=== PATIENT | male | born 1960 | race Caucasian/White ===

== ENCOUNTER → 2018-06-17 14:36 | Outpatient (CLI) | payer MEDICAID, SELFPAY ==
--- NOTE | 2018-06-17 14:43 | XR_ITS ---
XR chest 2V HISTORY: Cough and congestion, smoker ITS.REASON: URI ORDERING PHYSICIAN: Joi Valentino PATIENT AGE: 57 years COMPARISON: 11/30/2015 FINDINGS: Unremarkable cardiovascular structures. There is hyperinflation with attenuation of the peripheral pulmonary vessels consistent with COPD. A calcified granuloma is present in the superior segment of the left lower lobe. No lobar consolidation or collapse. No acute bony findings. IMPRESSION: COPD, no change with no acute finding
== END ==
PROVIDERS: PCP Nurse Practitioner Family; Visit Provider Nurse Practitioner Family
DX: J06.9 Acute upper respiratory infection, unspecified (principal)
CPT/HCPCS: 71046

== ENCOUNTER → 2018-07-28 14:57 | Outpatient (CLI) | payer MEDICAID, SELFPAY ==
[2018-07-28 15:59] LABS: Basophils % 0.5 % (0.1-2.0); Eosinophils # 0.2 K/mm3 (0.0-0.4); Eosinophils % 2.5 % (0.1-12.0); Hematocrit 47.5 % (42.0-52.0); Hemoglobin 15.8 g/dL (14.1-18.0); Lymphocytes # 1.4 K/mm3 (0.7-4.5); Lymphocytes % 21.8 % (10-50); Mean Corpuscular HGB Conc 33.3 g/dL (31.8-35.4); Mean Corpuscular Hemoglobin 31.1 pg (27.0-31.2); Mean Corpuscular Volume 93.3 fl (80-94); Mean Platelet Volume 9.2 fl (7.4-10.4); Monocytes # 0.5 K/mm3 (0.1-1.0); Monocytes % 8.4 % (1.7-9.3); Neutrophils # 4.2 K/mm3 (1.8-7.8); Neutrophils % 66.9 % (37.0-80.0); Platelet Count 378 K/mm3 (142-424); Red Blood Count 5.09 M/mm3 (4.60-6.20); Red Cell Distribution Width 13.5 % (11.5-17.5); White Blood Count 6.2 K/mm3 (4.8-10.8)
[2018-07-28 16:26] LABS: Alanine Aminotransferase 31 U/L (12-78); Albumin Level 3.6 gm/dL (3.4-5.0); Alkaline Phosphatase 71 U/L (46-116); Anion Gap 13.7 mEq/L (5-15); Aspartate Amino Transferase 23 U/L (15-37); Bilirubin,Total 0.4 mg/dL (0.2-1.0); Blood Urea Nitrogen 12 mg/dL (7-18); Calcium 9.7 mg/dL (8.5-10.1); Carbon Dioxide 28 mmol/L (21.0-32.0); Chloride 104 mmol/L (98-107); Cholesterol 249 mg/dL (140-200); Creatinine,Serum 0.83 mg/dL (0.70-1.30); Estimated Glomerular Filt Rate 95 ml/min (>60); GFR (African American) 115 ML/MIN (>60); Globulin 3.5 gm/dl (1.3-3.2); Glucose 91 mg/dL (74-106); HDL Cholesterol 63 mg/dL (27-67); LDL Cholesterol 165 mg/dL (0-130); Potassium 4.7 mmoL/L (3.5-5.1); Sodium 141 mmol/L (136-145); T4 (Thyroxine) 7.6 ug/dl (4.7-13.3); Thyroid Stimulating Hormone 2.78 uIU/ml (0.358-3.740); Total Protein,Serum 7.1 gm/dL (6.4-8.2); Triglycerides 106 mg/dL (30-200); VLDL Cholesterol 21 mg/dL (0-40)
[2018-07-30 14:27] LABS: PSA, Free 0.12 ng/mL; Prostate Specific Ag 0.5 ng/mL (0.0-4.0); Vitamin D 25 Hydroxy 15.3 ng/mL (30.0-100.0)
== END ==
LOC: LAB 14:57 → LAB.DROPOF 15:01
PROVIDERS: Visit Provider Physician Assistant
DX: R53.83 Other fatigue (principal); J44.9 Chronic obstructive pulmonary disease, unspecified; G89.4 Chronic pain syndrome; R07.81 Pleurodynia; R13.10 Dysphagia, unspecified; R12 Heartburn; F41.9 Anxiety disorder, unspecified; F32.9 Major depressive disorder, single episode, unspecified
CPT/HCPCS: 80053; 80061; 82652; 84153; 84154; 84436; 84443; 85025

== ENCOUNTER → 2018-08-01 14:17 | Outpatient (CLI) | payer MEDICAID, SELFPAY ==
--- NOTE | 2018-08-01 14:21 | XR_ITS ---
XR pelvis 1-2V HISTORY: ITS.REASON: left hip pain ORDERING PHYSICIAN: RENETTA Pedro PATIENT AGE: 57 years Comparison: None FINDINGS: No fracture or dislocation is evident. No significant degenerative change. No lytic or blastic change. The SI joints have an unremarkable appearance. Unremarkable soft tissues. There is a small calcific density inferior to the symphysis pubis and could represent a phlebolith. Phleboliths are present in the pelvis. IMPRESSION: Negative pelvis.
--- NOTE | 2018-08-01 14:21 | XR_ITS ---
XR knee RT 4V HISTORY: ITS.REASON: Bilateral knee pain ORDERING PHYSICIAN: RENETTA Pedro PATIENT AGE: 57 years COMPARISON: None FINDINGS: No fracture or dislocation. No lytic or blastic change. Normal mineralization. No significant arthritic changes evident. No other significant findings IMPRESSION: Negative Knee
--- NOTE | 2018-08-01 14:21 | XR_ITS ---
XR chest 2V HISTORY: Shortness of air, smoker ITS.REASON: CXR ORDERING PHYSICIAN: RENETTA Pedro PATIENT AGE: 57 years COMPARISON: 07/12/2018 FINDINGS: The cardiomediastinal silhouette and pulmonary vascularity are within normal limits. Mild hyperinflation. There is evidence of old granulomatous disease. No lobar consolidation or collapse. No suspicious nodules. No acute bony anomalies. IMPRESSION: No change with no acute finding
--- NOTE | 2018-08-01 14:21 | XR_ITS ---
XR ribs LT 2V HISTORY: Fall with injury and pain, left-sided rib pain ITS.REASON: Left rib pain ORDERING PHYSICIAN: RENETTA Pedro PATIENT AGE: 57 years Comparison: None FINDINGS: There are old fractures of the left 10 and 11th ribs. No acute rib fractures evident. No evidence of pneumothorax or other significant anomalies. Patient has 13 sets of ribs as a normal variant IMPRESSION: Old left 10th and 11th rib fractures. No acute finding.
--- NOTE | 2018-08-01 14:21 | XR_ITS ---
XR knee LT 4V HISTORY: ITS.REASON: Bilateral knee pain ORDERING PHYSICIAN: RENETTA Pedro PATIENT AGE: 57 years COMPARISON: None FINDINGS: No fracture or dislocation. No lytic or blastic change. Normal mineralization. No significant arthritic changes evident. No other significant findings IMPRESSION: Negative Knee
== END ==
PROVIDERS: PCP Emergency Medicine; Visit Provider Physician Assistant
DX: M25.561 Pain in right knee (principal); M25.562 Pain in left knee; R07.81 Pleurodynia
CPT/HCPCS: 71046; 71100; 72170; 73564

== ENCOUNTER → 2018-08-07 11:14 | Outpatient (CLI) | payer MEDICAID, SELFPAY | PROVIDERS: PCP Physician Assistant; Visit Provider Physician Assistant | DX: R06.00 Dyspnea, unspecified (principal) | CPT/HCPCS: 94060; 94640 ==

== ENCOUNTER → 2018-10-30 13:19 | Outpatient (CLI) | payer MEDICAID, SELFPAY ==
[2018-10-30 13:34] LABS: Basophils % 0.5 % (0.1-2.0); Eosinophils # 0.1 K/mm3 (0.0-0.4); Eosinophils % 1.3 % (0.1-12.0); Hematocrit 44.8 % (42.0-52.0); Hemoglobin 14.1 g/dL (14.1-18.0); Lymphocytes # 1.4 K/mm3 (0.7-4.5); Lymphocytes % 19.7 % (10-50); Mean Corpuscular HGB Conc 31.6 g/dL (31.8-35.4); Mean Corpuscular Hemoglobin 28.6 pg (27.0-31.2); Mean Corpuscular Volume 90.7 fl (80-94); Mean Platelet Volume 8.4 fl (7.4-10.4); Monocytes # 0.6 K/mm3 (0.1-1.0); Monocytes % 8.1 % (1.7-9.3); Neutrophils # 4.9 K/mm3 (1.8-7.8); Neutrophils % 70.5 % (37.0-80.0); Platelet Count 325 K/mm3 (142-424); Red Blood Count 4.93 M/mm3 (4.60-6.20); Red Cell Distribution Width 12.8 % (11.5-17.5)
[2018-10-30 16:15] LABS: Alanine Aminotransferase 28 U/L (12-78); Albumin Level 3.3 gm/dL (3.4-5.0); Alkaline Phosphatase 87 U/L (46-116); Anion Gap 12.4 mEq/L (5-15); Aspartate Amino Transferase 25 U/L (15-37); Bilirubin,Total 0.3 mg/dL (0.2-1.0); Blood Urea Nitrogen 12 mg/dL (7-18); Calcium 9.2 mg/dL (8.5-10.1); Carbon Dioxide 28 mmol/L (21.0-32.0); Chloride 106 mmol/L (98-107); Chol/HDL Ratio 2.9 (1-3.5); Cholesterol 200 mg/dL (140-200); Creatinine,Serum 0.94 mg/dL (0.70-1.30); Estimated Glomerular Filt Rate 82 ml/min (>60); GFR (African American) 100 ML/MIN (>60); Globulin 3.2 gm/dl (1.3-3.2); Glucose 91 mg/dL (74-106); HDL Cholesterol 68 mg/dL (27-67); LDL Cholesterol 114 mg/dL (0-130); Potassium 4.4 mmoL/L (3.5-5.1); Sodium 142 mmol/L (136-145); Thyroid Stimulating Hormone 1.81 uIU/ml (0.358-3.740); Total Protein,Serum 6.5 gm/dL (6.4-8.2); Triglycerides 88 mg/dL (30-200); VLDL Cholesterol 18 mg/dL (0-40)
[2018-10-31 17:15] LABS: Vitamin D 25 Hydroxy 56.1 ng/mL (30.0-100.0)
== END ==
PROVIDERS: Visit Provider Physician Assistant
DX: R42 Dizziness and giddiness (principal); E55.9 Vitamin D deficiency, unspecified
CPT/HCPCS: 80053; 80061; 82652; 84436; 84443; 85025

== ENCOUNTER → 2018-12-15 10:33 | Outpatient (CLI) | payer MEDICAID, SELFPAY ==
--- NOTE | 2018-12-15 10:40 | XR_ITS ---
PROCEDURE: XR HAND RT MIN 3V CLINICAL INDICATION: pain COMPARISON: No exams were available for comparison FINDINGS: There is an oblique minimally displaced fracture involving the mid to proximal shaft of the 4th metacarpal. There is 2 mm dorsal and ulnar displacement of the distal fracture fragment. There is good alignment. There is some minor cystic change involving the distal aspect of the 1st metacarpal Other findings:None. IMPRESSION: Oblique minimally displaced fracture of the 4th metacarpal Dictated by: Kalen Mayo MD 12/15/2018 11:25 Signed by: <Electronically signed by Kalen Mayo MD in [place]> 12/15/2018 11:25
[2018-12-15 12:27] LABS: Erythrocyte Sedimentation Rate 15 mm/hr (0-20)
[2018-12-15 12:54] LABS: C-Reactive Protein 0.6 mg/dL (0.0-0.9)
== END ==
PROVIDERS: PCP Emergency Medicine; Visit Provider Nurse Practitioner Family
DX: M79.641 Pain in right hand (principal); M79.89 Other specified soft tissue disorders
CPT/HCPCS: 36415; 73130; 85651; 86140

== ENCOUNTER → 2018-12-24 13:37 | Outpatient (CLI) | payer MEDICAID, SELFPAY ==
--- NOTE | 2018-12-24 13:43 | XR_ITS ---
PROCEDURE: XR HAND RT MIN 3V CLINICAL INDICATION: follow up right 4th digit fracture Fracture, pain, COMPARISON: XR HAND RT MIN 3V from 12/15/2018 FINDINGS: Oblique nondisplaced fractures present vomiting the proximal and mid aspect of the 4th metacarpal. The fracture line may be somewhat less distinct. There remains good alignment. IMPRESSION: Good alignment nondisplaced 4th metacarpal fracture Dictated by: Kalen Mayo MD 12/24/2018 14:42 <Electronically signed by Kalen Mayo MD in [place]> 12/24/2018 14:42
== END ==
PROVIDERS: PCP Emergency Medicine; Visit Provider Orthopaedic Surgery
DX: S62.304A Unspecified fracture of fourth metacarpal bone, right hand, initial encounter for closed fracture (principal)
CPT/HCPCS: 73130

== ENCOUNTER 2019-01-12 10:00 | Outpatient (RCR) | payer MEDICAID, SELFPAY ==
--- NOTE | 2018-12-26 13:42 | HMH.OTOPEV ---
OT Inpatient Evaluation Rehab OT Outpatient Eval Start: 12/26/18 13:25 Freq: Status: Active Protocol: Document 12/26/18 13:26 RMARSHALL (Rec: 12/26/18 13:40 [facility] [id number][facility] Electronically Signed By Holly Breaux OT 12/26/18 13:26 Outpatient Therapy Subjective History Subjective History Pt is a 58 year old male who reports to therapy for initial evaluation to right hand. Pt explains on 11/20/18 he woke up with pain in the back of his hand around his ring and middle finger. Pt noticed swelling and was unable to actively bend fingers; swelling was present. Pt does not recall a specific injury causing pain or swelling. Pt went to doctor where he was diagnosed with fx of 4th metacarpal. Pt does demonstrate with decreased AROM at both ring and middle finger. 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 Pt will continue to be seen in order to address all deficits. 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
== END 2019-01-12 10:05 | disposition home or self-care (01) ==
LOC: OT 10:00
PROVIDERS: Visit Provider Orthopaedic Surgery
DX: S62.604A Fracture of unspecified phalanx of right ring finger, initial encounter for closed fracture (principal)
CPT/HCPCS: 97035; 97110; 97140; 97166

== ENCOUNTER → 2019-01-14 12:52 | Outpatient (CLI) | payer MEDICAID, SELFPAY ==
--- NOTE | 2019-01-14 12:54 | XR_ITS ---
PROCEDURE: XR HAND RT MIN 3V CLINICAL INDICATION: follow up right 4th mc fx Follow-up fracture COMPARISON: XR HAND RT MIN 3V from 12/15/2018 XR HAND RT MIN 3V from 12/24/2018 FINDINGS: Nondisplaced oblique fracture once again noted involving the proximal mid aspect of the 4th metacarpal. Fracture line is still visible. There may be some callus formation developing. No other nominal is evident. The joint spaces are well-preserved. No significant degenerative/arthritic changes. No erosive changes evident. Other findings:None. IMPRESSION: Healing 4th metacarpal fracture with good alignment Dictated by: Kalen Mayo MD 01/14/2019 14:23 Electronically signed by Kalen Mayo MD in [place] 01/14/2019 14:23
== END ==
PROVIDERS: PCP Emergency Medicine; Visit Provider Orthopaedic Surgery
DX: S62.304A Unspecified fracture of fourth metacarpal bone, right hand, initial encounter for closed fracture (principal)
CPT/HCPCS: 73130

== ENCOUNTER 2019-01-19 14:30 | Outpatient (RCR) | payer MEDICAID, SELFPAY | END 2019-01-19 15:00 | disposition home or self-care (01) | LOC: OT 14:30 | PROVIDERS: Visit Provider Orthopaedic Surgery | DX: G56.01 Carpal tunnel syndrome, right upper limb (principal) | CPT/HCPCS: 97763 ==

== ENCOUNTER → 2019-03-09 10:22 | Outpatient (POV) | payer OTHER, SELFPAY | PROVIDERS: Visit Provider Specialist | DX: M79.642 Pain in left hand (principal); M79.641 Pain in right hand; R20.2 Paresthesia of skin | CPT/HCPCS: 95886; 95910 ==

== ENCOUNTER → 2019-03-25 11:56 | Outpatient (CLI) | payer OTHER, SELFPAY ==
--- NOTE | 2019-03-25 12:13 | ECG_ITS ---
APPROVED REPORT Exam: Resting ECG HR:81 bpm ECG Measurements Heart Rate 81 AXES WV 120 P 43 QRSd 80 QRS 75 QT 360 T 66 QTc 418 <Conclusion> Normal sinus rhythm Normal ECG Electronically signed by : Darvin Dempsey, 03/27/2019 16:39:40
--- NOTE | 2019-03-25 12:13 | XR_ITS ---
PROCEDURE: XR CHEST 2V CLINICAL HISTORY: CURRENT TOBACCO USE, PRE OP COMPARISON: [facility] CT CHEST W/O CONTRAST from 11/01/2016 CXR2V XR chest 2V from 06/17/2018 CXR2V XR chest 2V from 07/12/2018 CXR2V XR chest 2V from 08/01/2018 FINDINGS: The cardiomediastinal silhouette and pulmonary vascularity are within normal limits. COPD changes. Old granulomatous disease. Clear lungs. No acute bony finding. IMPRESSION: COPD. No change with no acute finding Dictated by: Kalen Mayo MD 03/25/2019 21:27 Electronically signed by Kalen Mayo MD in [place] 03/25/2019 21:27
[2019-03-25 12:21] LABS: Basophils % 0.4 % (0.1-2.0); Eosinophils # 0.1 K/mm3 (0.0-0.4); Eosinophils % 1.5 % (0.1-12.0); Hematocrit 46.7 % (42.0-52.0); Hemoglobin 15.1 g/dL (14.1-18.0); Lymphocytes # 1.6 K/mm3 (0.7-4.5); Lymphocytes % 22.3 % (10-50); Mean Corpuscular HGB Conc 32.3 g/dL (31.8-35.4); Mean Corpuscular Volume 92.8 fl (80-94); Mean Platelet Volume 7.3 fl (7.4-10.4); Monocytes # 0.5 K/mm3 (0.1-1.0); Monocytes % 7.3 % (1.7-9.3); Neutrophils % 68.5 % (37.0-80.0); Platelet Count 339 K/mm3 (142-424); Red Blood Count 5.04 M/mm3 (4.60-6.20); White Blood Count 7.3 K/mm3 (4.8-10.8)
[2019-03-25 12:47] LABS: Anion Gap 11.2 mEq/L (5-15); Blood Urea Nitrogen 12 mg/dL (7-18); Calcium 8.8 mg/dL (8.5-10.1); Carbon Dioxide 31 mmol/L (21.0-32.0); Chloride 104 mmol/L (98-107); Creatinine,Serum 1.05 mg/dL (0.70-1.30); Estimated Glomerular Filt Rate 72 ml/min (>60); GFR (African American) 87 ML/MIN (>60); Glucose 90 mg/dL (74-106); Potassium 4.2 mmoL/L (3.5-5.1); Sodium 142 mmol/L (136-145)
== END ==
PROVIDERS: Visit Provider Orthopaedic Surgery
DX: Z01.818 Encounter for other preprocedural examination (principal); G56.01 Carpal tunnel syndrome, right upper limb
CPT/HCPCS: 36415; 71046; 80048; 85025; 93005

== ENCOUNTER → 2019-09-08 15:01 | Outpatient (CLI) | payer OTHER, SELFPAY ==
[2019-09-08 16:08] LABS: Basophils # 0.1 K/mm3 (0-0.2); Basophils % 0.9 % (0.1-2.0); Eosinophils # 0.1 K/mm3 (0.0-0.4); Eosinophils % 1.7 % (0.1-12.0); Hematocrit 46.2 % (42.0-52.0); Hemoglobin 14.4 g/dL (14.1-18.0); Lymphocytes # 1.1 K/mm3 (0.7-4.5); Lymphocytes % 18.4 % (10-50); Mean Corpuscular HGB Conc 31.1 g/dL (31.8-35.4); Mean Corpuscular Hemoglobin 28.6 pg (27.0-31.2); Mean Corpuscular Volume 91.9 fl (80-94); Mean Platelet Volume 9.5 fl (7.4-10.4); Monocytes # 0.4 K/mm3 (0.1-1.0); Monocytes % 7.4 % (1.7-9.3); Neutrophils # 4.3 K/mm3 (1.8-7.8); Neutrophils % 71.7 % (37.0-80.0); Platelet Count 430 K/mm3 (142-424); Red Blood Count 5.03 M/mm3 (4.60-6.20); Red Cell Distribution Width 13.1 % (11.5-17.5)
[2019-09-08 17:03] LABS: Alanine Aminotransferase 15 U/L (12-78); Albumin Level 4.1 g/dl (3.5-5.0); Albumin/Globulin Ratio 1.5 (1.1-1.8); Alkaline Phosphatase 87 U/L (38-126); Anion Gap 8.6 mEq/L (5-15); Aspartate Amino Transferase 31 U/L (17-59); Blood Urea Nitrogen 8 mg/dl (9-20); Calcium 9.8 mg/dl (8.4-10.2); Carbon Dioxide 26 mmol/L (22.0-30.0); Chloride 104 mmol/L (98-107); Chol/HDL Ratio 2.4 (1-3.5); Cholesterol 171 mg/dl (140-200); Estimated Glomerular Filt Rate 99 ml/min (>60); GFR (African American) 120 ML/MIN (>60); Globulin 2.8 g/dL (1.3-3.2); Glucose 100 mg/dl (74-100); HDL Cholesterol 71 mg/dl (40-60); Potassium 4.6 mmoL/L (3.5-5.1); Sodium 134 mmol/L (136-145); Total Protein,Serum 6.9 g/dl (6.3-8.2); Triglycerides 94 mg/dl (30-150); VLDL Cholesterol 19 mg/dL (0-40)
[2019-09-08 17:14] LABS: Direct LDL Cholesterol 105.55 mg/dL (100-129)
[2019-09-08 17:24] LABS: T4 (Thyroxine) 7.2 ug/dl (5.53-11.0)
[2019-09-08 17:27] LABS: Bilirubin,Total < 0.1 mg/dl (0.2-1.3)
[2019-09-08 17:37] LABS: Thyroid Stimulating Hormone 2.07 uIU/mL (0.465-4.68)
[2019-09-10 11:36] LABS: PSA, Free 0.11 ng/mL; Prostate Specific Ag 0.6 ng/mL (0.0-4.0); Vitamin D 25 Hydroxy 46.7 ng/mL (30.0-100.0)
== END ==
PROVIDERS: Visit Provider Nurse Practitioner Family
DX: Z01.89 Encounter for other specified special examinations (principal); G89.4 Chronic pain syndrome; E78.5 Hyperlipidemia, unspecified; J44.9 Chronic obstructive pulmonary disease, unspecified; Z79.899 Other long term (current) drug therapy; Z72.0 Tobacco use
CPT/HCPCS: 80053; 80061; 82652; 84153; 84154; 84436; 84443; 85025

== ENCOUNTER → 2020-04-14 13:51 | Outpatient (CLI) | payer OTHER, SELFPAY ==
--- NOTE | 2020-04-14 14:00 | XR_ITS ---
PROCEDURE: XR KNEE LT 3V CLINICAL INDICATION: knee pain COMPARISON: CR [id number] XR knee RT 4V from 08/01/2018 CR [id number] XR knee LT 4V from 08/01/2018 FINDINGS: No fracture or dislocation. No lytic or blastic change. There is normal mineralization. The joint spaces are well-preserved. No significant degenerative/arthritic changes. No erosive changes evident. Other findings:There may be a small suprapatellar effusion. IMPRESSION: Possible suprapatellar effusion otherwise negative Dictated by: Kalen Mayo MD 04/14/2020 14:52 Kalen Mayo MD in [place] 04/14/2020 14:52
--- NOTE | 2020-04-14 14:00 | XR_ITS ---
PROCEDURE: XR LUMBAR SPINE 6V W BENDING CLINICAL INDICATION: back pain Low back pain COMPARISON: No exams were available for comparison FINDINGS: There is normal alignment. There are mild degenerative changes with small anterior osteophytes the from L1-L5. There is very slight decrease in height anteriorly L3 and L4 which could be chronic. No abnormal subluxation is evident in flexion or extension. There is generalized vascular calcification. Other findings:None. IMPRESSION: Degenerative changes with minimal wedging of L3 and L4 which may be chronic. MRI may confirm if clinically desired. No abnormal subluxation inflection or extension. Dictated by: Kalen Mayo MD 04/15/2020 07:08 Kalen Mayo MD in [place] 04/15/2020 07:08
== END ==
PROVIDERS: PCP Nurse Practitioner Family; Visit Provider Nurse Practitioner Family
DX: M25.50 Pain in unspecified joint (principal); M54.5 Low back pain; M25.562 Pain in left knee
CPT/HCPCS: 72114; 73562

== ENCOUNTER → 2020-05-03 11:39 | Outpatient (CLI) | payer OTHER, SELFPAY ==
[2020-05-03 12:30] VITALS: PULSE 87; PULSE 90
--- NOTE | 2020-05-03 12:59 | MR_ITS ---
PROCEDURE: MR LUMBAR SPINE WO CON CLINICAL INDICATION: abnormal x ray LOW BACK PAIN, LT HIP PAIN, TIGHTNESS IN BACK, ABNORMAL XRAY COMPARISON: CR XR LUMBAR SPINE 6V W BENDING from 04/14/2020 TECHNIQUE: Standard multiplanar multiecho sequences are performed without contrast. 3-D MIP and myelographic images are also rendered and reviewed FINDINGS: There is normal alignment. Spinal cord ends at the L1 level. T12-L1: Unremarkable. L1-L2: Unremarkable. L2-L3: Unremarkable. L3-L4: Small anterior osteophytes are present at L3 and L4 with slight decrease in height anteriorly at L3 and L4. No evidence of acute fracture. L4-5: Unremarkable. L5-S1: Minimal bulging disc. Mild right foraminal narrowing. There is increased T2 signal along the superior endplate of S1 and the inferior endplate of L5 on the right consistent with type 1 discogenic changes No extruded herniated disc or canal stenosis. IMPRESSION: 1. No extruded herniated disc or canal stenosis. 2. No evidence of acute compression fracture. 3. Mild lumbar spondylosis. Please see above for detailed description at each level. 4. Type 1 discogenic changes on the right at L5-S1 Dictated by: Kalen Mayo MD 05/04/2020 14:34 Kalen Mayo MD in [place] 05/04/2020 14:34
== END ==
PROVIDERS: PCP Nurse Practitioner Family; Visit Provider Nurse Practitioner Family
DX: G89.29 Other chronic pain (principal); M54.9 Dorsalgia, unspecified; J44.9 Chronic obstructive pulmonary disease, unspecified
CPT/HCPCS: 72148; 76376; 94060; 94640

== ENCOUNTER → 2020-05-04 12:40 | Outpatient (CLI) | payer OTHER, SELFPAY ==
--- NOTE | 2020-05-04 12:42 | XR_ITS ---
PROCEDURE: XR KNEE RT 4V CLINICAL INDICATION: right knee pain COMPARISON: CR [id number] XR knee RT 4V from 08/01/2018 CR [id number] XR knee LT 4V from 08/01/2018 CR XR KNEE LT 3V from 04/14/2020 FINDINGS: No fracture or dislocation. No lytic or blastic change. There is normal mineralization. The joint spaces are well-preserved. No significant degenerative/arthritic changes. No erosive changes evident. Other findings:None. IMPRESSION: Negative right knee Dictated by: Kalen Mayo MD 05/04/2020 16:44 Kalen Mayo MD in [place] 05/04/2020 16:44
--- NOTE | 2020-05-04 12:42 | XR_ITS ---
PROCEDURE: XR KNEE LT 4V CLINICAL INDICATION: left knee pain COMPARISON: CR [id number] XR knee RT 4V from 08/01/2018 CR [id number] XR knee LT 4V from 08/01/2018 CR XR KNEE LT 3V from 04/14/2020 FINDINGS: No fracture or dislocation. No lytic or blastic change. There is normal mineralization. The joint spaces are well-preserved. No significant degenerative/arthritic changes. No erosive changes evident. Other findings:None. IMPRESSION: Negative left knee Dictated by: Kalen Mayo MD 05/04/2020 16:44 Kalen Mayo MD in [place] 05/04/2020 16:44
--- NOTE | 2020-05-04 13:20 | XR_ITS ---
PROCEDURE: XR HIP LT 2-3V W/PELVIS CLINICAL INDICATION: left hip pain COMPARISON: No exams were available for comparison FINDINGS: No fracture or dislocation is evident. No significant degenerative change. No lytic or blastic change. Unremarkable soft tissues. There is some minimal calcification noted in the prostate region IMPRESSION: Negative left hip Dictated by: Kalen Mayo MD 05/04/2020 16:34 Kalen Mayo MD in [place] 05/04/2020 16:34
--- NOTE | 2020-05-04 13:20 | XR_ITS ---
PROCEDURE: XR HIP RT 2-3V W/PELVIS CLINICAL INDICATION: right hip pain COMPARISON: CR [id number] XR pelvis 1-2V from 08/01/2018 CR XR HIP LT 2-3V W/PELVIS from 05/04/2020 FINDINGS: No fracture or dislocation is evident. No significant degenerative change. No lytic or blastic change. Unremarkable soft tissues. IMPRESSION: Negative right hip Dictated by: Kalen Mayo MD 05/04/2020 16:15 Kalen Mayo MD in [place] 05/04/2020 16:15
== END ==
PROVIDERS: PCP Nurse Practitioner Family; Visit Provider Orthopaedic Surgery
DX: M25.562 Pain in left knee (principal); M25.561 Pain in right knee; M25.552 Pain in left hip; M25.551 Pain in right hip
CPT/HCPCS: 73502; 73564

== ENCOUNTER → 2020-07-22 14:51 | Outpatient (CLI) | payer OTHER, SELFPAY ==
--- NOTE | 2020-07-22 14:51 | CT_ITS ---
PROCEDURE: CT LUNG SCREENING CLINICAL INDICATION: LDCT COMPARISON: CT LDCTLCAS LDCT FOR LUNG CA SCREEN from 12/13/[address] [facility] [address] CHEST W/O CONTRAST from 11/01/2016 TECHNIQUE: The exam was performed on a GE Light Speed [address] scanner using 2.90 mGy CTDI. A low dose helical CT CHEST was performed on a multi-detector scanner. All CT scans at the facility use one or more dose reduction, viz: automated exposure control, ma/kV adjustment per patient size (including targeted exams where dose is matched to indication, i.e. head), or iterative reconstruction technique. The LDCT was performed in a facility that meets the criteria for the screening program. Data regarding this exam was submitted to ACR which is an approved registry. The order for this exam indicates that it came as a result of a lung cancer screening counseling shard decision-making visit that included all the elements required of such a visit including smoking cessation. The radiologist interpreting this exam meets the CMS criteria for the LDCT lung cancer screening program. The exam is reported using the Lung-RADS classification scale and reported to the ACR registry. NOTE: This study was performed for the specific purposes of lung cancer screening and is not an alternative to diagnostic chest CT. RADIATION DOSE: CTDI vol(CT dose Index-volume) = 2.90mG DLP (Dose Length Product) = mGcm FINDINGS: Centrilobular emphysematous changes are noted bilaterally. Minor paraseptal emphysematous changes. A vagal pleural scarring is noted bilaterally. Few calcified granulomas. There are tiny nodules noted in the lungs bilaterally measuring less than 3 millimeters, demonstrate no significant interval change. No suspicious lung nodules are noted. The central tracheobronchial tree is patent. The heart size is normal. No pericardial effusions. Atherosclerotic vascular calcification of the thoracic aorta and the coronary arteries are noted. Multiple subcentimeter calcified lymph nodes in the mediastinum, not significant by size criteria. Visualized upper abdominal solid organs are unremarkable within the limitations of unenhanced study. The visualized thyroid gland is unremarkable. IMPRESSION: Lung-RADS Category 2 Benign Appearance or Behavior Follow-up: Follow-up lung screening in 18-24 months. Dictated by: Carissa Andersen 07/22/2020 17:21 Carissa Andersen in [place] 07/22/2020 17:21
== END ==
PROVIDERS: PCP Nurse Practitioner Family; Visit Provider Internal Medicine Pulmonary Disease
DX: Z87.891 Personal history of nicotine dependence (principal); Z12.2 Encounter for screening for malignant neoplasm of respiratory organs
CPT/HCPCS: 71271

== ENCOUNTER → 2020-08-25 13:43 | Outpatient (CLI) | payer OTHER, SELFPAY ==
[2020-08-25 14:42] LABS: Barbiturates Screen,Urine Negative ng/ml (<200)
[2020-08-25 14:43] LABS: Amphetamine/Metha Screen,Urine Negative ng/ml (<1000); Benzodiazepines Screen,Urine Positive ng/ml (<200)
[2020-08-25 14:44] LABS: Cocaine Screen,Urine Negative ng/ml (<300)
[2020-08-25 14:45] LABS: Cannabinoid Screen,Urine Negative ng/ml (<50); Methadone Screen,Urine Negative ng/ml (<300)
[2020-08-25 14:46] LABS: Opiate Screen,Urine Negative ng/ml (<300)
[2020-08-25 14:47] LABS: Phencyclidine Screen,Urine Negative ng/ml (<25)
[2020-08-25 17:34] LABS: Alanine Aminotransferase 44 U/L (12-78); Albumin/Globulin Ratio 1.5 (1.1-1.8); Alkaline Phosphatase 111 U/L (38-126); Anion Gap 9.5 mEq/L (5-15); Aspartate Amino Transferase 65 U/L (17-59); Bilirubin,Total 0.4 mg/dl (0.2-1.3); Blood Urea Nitrogen 4 mg/dl (9-20); Calcium 9.4 mg/dl (8.4-10.2); Carbon Dioxide 28 mmol/L (22.0-30.0); Chloride 106 mmol/L (98-107); Chol/HDL Ratio 2.3 (1-3.5); Cholesterol 191 mg/dl (140-200); Estimated Glomerular Filt Rate 99 ml/min (>60); GFR (African American) 119 ML/MIN (>60); Globulin 2.7 g/dL (1.3-3.2); Glucose 70 mg/dl (74-100); HDL Cholesterol 83 mg/dl (40-60); Potassium 4.5 mmoL/L (3.5-5.1); Sodium 139 mmol/L (136-145); Total Protein,Serum 6.7 g/dl (6.3-8.2); Triglycerides 120 mg/dl (30-150); VLDL Cholesterol 24 mg/dL (0-40)
[2020-08-25 17:36] LABS: Basophils % 0.6 % (0.1-2.0); Eosinophils # 0.1 K/mm3 (0.0-0.4); Eosinophils % 1.7 % (0.1-12.0); Hemoglobin 15.1 g/dL (14.1-18.0); Lymphocytes # 1.5 K/mm3 (0.7-4.5); Lymphocytes % 21.3 % (10-50); Mean Corpuscular HGB Conc 31.5 g/dL (31.8-35.4); Mean Corpuscular Hemoglobin 29.9 pg (27.0-31.2); Mean Corpuscular Volume 94.8 fl (80-94); Mean Platelet Volume 10.3 fl (7.4-10.4); Monocytes # 0.6 K/mm3 (0.1-1.0); Monocytes % 7.7 % (1.7-9.3); Neutrophils # 4.9 K/mm3 (1.8-7.8); Neutrophils % 68.7 % (37.0-80.0); Platelet Count 316 K/mm3 (142-424); Red Blood Count 5.06 M/mm3 (4.60-6.20); Red Cell Distribution Width 14.3 % (11.5-17.5); White Blood Count 7.2 K/mm3 (4.8-10.8)
[2020-08-25 17:47] LABS: Direct LDL Cholesterol 79.51 mg/dL (100-129)
[2020-08-25 17:51] LABS: 25-OH Vitamin D, Total 59.4 ng/mL (30-100); T4 (Thyroxine) 6.3 ug/dl (5.53-11.0)
[2020-08-25 18:05] LABS: Thyroid Stimulating Hormone 2.53 uIU/mL (0.465-4.68)
[2020-08-27 11:33] LABS: PSA, Free 0.23 ng/mL; Prostate Specific Ag 0.9 ng/mL (0.0-4.0)
== END ==
PROVIDERS: Visit Provider Nurse Practitioner Family
DX: J44.9 Chronic obstructive pulmonary disease, unspecified (principal); E78.5 Hyperlipidemia, unspecified; E55.9 Vitamin D deficiency, unspecified; M25.50 Pain in unspecified joint; Z79.899 Other long term (current) drug therapy; Z72.0 Tobacco use
CPT/HCPCS: 80053; 80061; 80305; 82306; 84153; 84154; 84436; 84443; 85025

== ENCOUNTER → 2020-12-15 12:38 | Outpatient (POV) | payer OTHER, SELFPAY ==
[2020-12-15 13:16] VITALS: BP 134/78; PULSE 109; RESP 108; O2SAT 96; BMI 19.2
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
== END ==
PROVIDERS: PCP Nurse Practitioner Family; Visit Provider Clinical Nurse Specialist Family Health
DX: M47.896 Other spondylosis, lumbar region (principal); M54.16 Radiculopathy, lumbar region
CPT/HCPCS: 99202; G0463

== ENCOUNTER → 2021-01-17 13:39 | Outpatient (POV) | payer OTHER, SELFPAY ==
[2021-01-17 13:47] VITALS: BP 100/80; PULSE 101; RESP 18; O2SAT 96; BMI 18.4
--- NOTE | 2021-01-17 13:58 | HMH.PAINSOAP ---
[facility] Pain Management SOAP Note Subjective:: Patient is a 60-year-old white male who presents today for follow-up. He has been treated in our clinic for chronic low back pain with radiation into lower extremities. He is also complaining today of bilateral knee pain. He rates his pain a 6 out of 10. He is managed in the clinic with gabapentin 300 mg 1 tablet p.o. 4 times daily. Patient and I did discuss injective therapy at his last visit, however, he did defer at that time. The patient's pain is worsening. He is getting relief with his gabapentin, however, he says due to taking it 4 times daily, he has difficulty managing to take the full medication throughout the day. As result, his pain does increase. Patient is having difficulty standing and walking due to bilateral knee pain at this time. He has not had injections in the past. He does continue with home stretching. He has tried oral medications in the past with no significant relief. Review of Systems General: No recent weight changes, no fever, no sleep disturbances Respiratory: No cough, no shortness of air, no recurring pulmonary infections Cardiovascular/peripheral vascular: No chest pain, no palpitations, no edema, no shortness of breath Gastrointestinal: No new onset incontinence, normal bowel movements reported Genitourinary: No new onset incontinence Musculoskeletal: Low back pain with bilateral knee pain Psychiatric: [Normal mood/affect] Neurological: [Denies weakness in extremities], [denies balance issues] Objective:: Physical exam General: Alert and oriented x3, no acute distress, pleasant and cooperative, [on room air] Lungs: Respirations even and unlabored, symmetrical chest expansion Eyes: PERRL Musculoskeletal: Flexion and extension of lumbar [spine] somewhat guarded secondary to pain, strength in upper and lower extremities [5/5], [antalgic gait noted] Neurological: Speech clear, [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 He is having significant pain with standing or walking. We will change the patient's gabapentin to 600 mg 1 tablet p.o. 3 times daily. We will see if the medication is working for him at his next visit. After the patient's intra-articular knee injections, he may be a candidate for lumbar epidural steroid injection. He would like to try lesser invasive injective therapy before proceeding with an epidural steroid injection. Possible side effects of corticosteroids have been discussed with the patient. Risks and benefits of the procedure have been explained to the patient. Patient would like to proceed with the procedure. Patient has been instructed to contact the clinic with any concerns before the next appointment. Dr. Be has reviewed this note and agrees with this plan of care. This note was dictated using voice recognition software and make contain errors or omissions. [facility] History I have reviewed the patient's past medical history: Yes Medical History: Reports:: Asthma, Chronic Obstructive Pulmonary Disease (COPD), Gastroesophageal Reflux Disease(GERD), Hyperlipidemia Denies:: Cancer, Diabetes Mellitus Type 1, Diabetes Mellitus Type 2, Internal Pacemaker, Lung Disease, MRSA, Seizures *Have you ever received a pneumonia vaccine?: No *Have you received a flu vaccine this season?: No Other Medical History: Denies: Blood Transfusion Reaction Laterality Cases: Left: Total Hip Replacement, Right: Carpal Tunnel Release Other Surgeries: Yes: Colonoscopy, EGD, Other. No: Pacemaker Amputation: No Fractures: No - *Social History Smoking Status: Current every day smoker Tobacco Type: cigarettes # Packs/Day (cigarettes): 1 Alcohol Intake: current Alcohol Intake Frequency:: a few times a week Substance Use Type: former substance user *Occu
== END ==
PROVIDERS: PCP Emergency Medicine; Visit Provider Clinical Nurse Specialist Family Health
DX: M25.561 Pain in right knee (principal); M25.562 Pain in left knee; M51.16 Intervertebral disc disorders with radiculopathy, lumbar region
CPT/HCPCS: 99212; G0463

== ENCOUNTER 2021-02-03 13:58 | Day surgery (SDC) | payer OTHER, SELFPAY ==
[2021-02-03 14:10] VITALS: BP 138/72; PULSE 91; RESP 18; TEMP 36.5; O2SAT 97; BMI 19.2
[2021-02-03 14:15] VITALS: BP 113/52; PULSE 92; RESP 18; O2SAT 99
[2021-02-03 14:16] VITALS: BP 113/52; PULSE 71; RESP 18; O2SAT 99
--- NOTE | 2021-02-03 14:16 | HMH.PMPROC ---
- Procedure Date: 02/03/21 Time: 14:16 Anesthesiologist:: Julien Be MD Complications:: None Pre-procedure Diagnosis:: Bilateral knee pain with degenerative osteoarthritis Post-procedure Diagnosis:: Same Indications for Procedure:: Patient is a pleasant 60-year-old white male who we are treating for low back pain with lumbar radiculopathy symptoms. We are also treating for bilateral knee pain. Knee pain is worse today especially with activity. We will plan on bilateral intra-articular knee injections to help him with his pain symptoms. Procedure Details:: Bilateral knee injection intra-articular Informed consent was obtained risk and benefits of the procedure were explained to the patient. Patient was taken the procedure room. Both knees were prepped using ChloraPrep. A 25-gauge needle was used first medially then laterally to inject 10 mL bupivacaine 0.25% and Depo-Medrol 40 mg into each knee. We used a total of 80 mg Depo-Medrol for both knees. Patient tolerated the procedure well with no complications. Plan and Disposition:: We will follow-up with him in 2 weeks. Will reevaluate symptoms at that time.
[2021-02-03 14:34] VITALS: BP 132/85; PULSE 91; RESP 20; O2SAT 97
== END 2021-02-03 14:35 | disposition home or self-care (01) ==
LOC: SC.PAINP 13:58
PROVIDERS: PCP Emergency Medicine; Visit Provider Anesthesiology
DX: M17.0 Bilateral primary osteoarthritis of knee (principal); E78.5 Hyperlipidemia, unspecified; J44.9 Chronic obstructive pulmonary disease, unspecified; K21.9 Gastro-esophageal reflux disease without esophagitis; I10 Essential (primary) hypertension; Z72.0 Tobacco use; F41.9 Anxiety disorder, unspecified; F32.9 Major depressive disorder, single episode, unspecified
CPT/HCPCS: 20610; J1040

== ENCOUNTER → 2021-02-23 10:51 | Outpatient (POV) | payer OTHER, SELFPAY ==
[2021-02-23 11:11] VITALS: BP 137/85; PULSE 52; RESP 18; O2SAT 96; BMI 19.2
--- NOTE | 2021-02-23 12:16 | HMH.PAINSOAP ---
[facility] Pain Management SOAP Note Subjective:: Patient is a pleasant 59-year-old white male who presents today for follow-up after bilateral intra-articular knee injections. Patient reports that he got 3 days of relief with the injections. He reports the first day he had significant soreness following the injections. At day 2, he feels he got significant relief. At the third day, his pain did return. He reports that the pain is progressively worsened since his third day post injections Patient says his pain is worse with standing walking and with movement of his bilateral lower extremities. He has tried physical therapy along with continued home stretching for more than 6 weeks. The patient has not tried any topical creams to the area. He does rate his pain a 7 out of 10. Review of Systems General: No recent weight changes, no fever, no sleep disturbances Respiratory: No cough, no shortness of air, no recurring pulmonary infections Cardiovascular/peripheral vascular: No chest pain, no palpitations, no edema, no shortness of breath Gastrointestinal: No new onset incontinence, normal bowel movements reported Genitourinary: No new onset incontinence Musculoskeletal: Bilateral knee pain Psychiatric: [Normal mood/affect] Neurological: [Denies weakness in extremities], [denies balance issues] Objective:: Physical exam General: Alert and oriented x3, no acute distress, pleasant and cooperative Lungs: Respirations even and unlabored, symmetrical chest expansion Eyes: PERRL Musculoskeletal: Flexion and extension of [] bilateral lower extremities somewhat guarded secondary to pain, [antalgic gait noted] Neurological: Speech clear, no gross sensory deficit Assessment:: Bilateral knee with degenerative osteoarthritis Plan:: We will schedule the patient for a left knee genicular block. If the patient gets significant relief, we will proceed with an RFA to his left knee. We will also give the patient Pennsaid cream to see if this relieves pain to his knees between injections. We will follow-up with the patient after the geniculate block. If he gets significant relief we will perform an RFA to the area. We will then proceed to the right knee. If the patient does not get relief, he would like to undergo a referral with Dr. Andersen. Patient has been instructed to contact clinic if he has any concerns for his next appointment. Possible side effects of corticosteroids have been discussed with the patient. Risks and benefits of the procedure have been explained to the patient. Patient would like to proceed with the procedure. Patient has been instructed to contact the clinic with any concerns before the next appointment. Dr. Be has reviewed this note and agrees with this plan of care. This note was dictated using voice recognition software and make contain errors or omissions. [facility] History I have reviewed the patient's past medical history: Yes Medical History: Reports:: Asthma, Chronic Obstructive Pulmonary Disease (COPD), Gastroesophageal Reflux Disease(GERD), Hyperlipidemia, Hypertension Denies:: Cancer, Diabetes Mellitus Type 1, Diabetes Mellitus Type 2, Internal Pacemaker, Lung Disease, MRSA, Seizures *Have you ever received a pneumonia vaccine?: No *Have you received a flu vaccine this season?: No Other Medical History: Denies: Blood Transfusion Reaction Laterality Cases: Left: Total Hip Replacement, Right: Carpal Tunnel Release Other Surgeries: Yes: Colonoscopy, EGD, Other. No: Pacemaker Amputation: No Fractures: No - *Social History Smoking Status: Current every day smoker Tobacco Type: cigarettes # Packs/Day (cigarettes): 1 Alcohol Intake: never Alcohol Intake Frequency:: a few times a week Substance Use Type: former substance user *Occupational Status:: unemployed Housing: house Household Members: family *Travel in the last 8 weeks: None Family Hx:: Cancer, Heart Attack, Hypertension
== END ==
PROVIDERS: Visit Provider Clinical Nurse Specialist Family Health
DX: M17.0 Bilateral primary osteoarthritis of knee (principal)
CPT/HCPCS: 99212; G0463

== ENCOUNTER 2021-03-10 13:40 | Day surgery (SDC) | payer OTHER, SELFPAY ==
[2021-03-10 14:00] VITALS: BP 140/79; PULSE 81; RESP 18; TEMP 37; O2SAT 97; BMI 18.4
[2021-03-10 14:40] VITALS: BP 125/69; PULSE 75; RESP 18; O2SAT 96
[2021-03-10 14:42] VITALS: PULSE 73; RESP 18; O2SAT 97
--- NOTE | 2021-03-10 14:48 | HMH.PMPROC ---
- Procedure Date: 03/10/21 Time: 14:48 Anesthesiologist:: Yohana Elliott MD Complications:: None Pre-procedure Diagnosis:: Osteoarthritis of the left knee, left knee pain Post-procedure Diagnosis:: Same Indications for Procedure:: Patient is a very pleasant 60-year-old white male who presents today with chronic left-sided knee pain related to the above diagnosis. He has failed conservative treatment including oral pain medications and home stretching program for greater than 6 weeks. He has previously undergone intra-articular knee injections with very minimal pain relief. Plan for today is for the patient to undergo left-sided genicular nerve block injection under fluoroscopy #1 Procedure Details:: Left knee genicular block Informed consent was obtained and the risk and benefits of the procedure was explained to the patient. The patient was taken to the procedure room. The left knee was prepped using ChloraPrep. I placed 22-gauge needles into the area of the left superior medial genicular nerve, left superior lateral genicular nerve and left inferior medial genicular nerve. Needle placement was confirmed in AP and lateral views with dye. We then injected bupivacaine 0.25% 3 mL's and Depo-Medrol 25 mg into each area of the left superior medial genicular nerve, left superior lateral genicular nerve and left inferior medial genicular nerve. Patient tolerated the procedure well with no complications. Plan and Disposition:: We will follow-up with this patient in 2 weeks. Will reevaluate pain symptoms at that time.
[2021-03-10 14:52] VITALS: BP 129/74; PULSE 75; RESP 20; O2SAT 97
== END 2021-03-10 14:53 | disposition home or self-care (01) ==
LOC: SC.PAINP 13:41
PROVIDERS: PCP Emergency Medicine; Visit Provider Anesthesiology Pain Medicine
DX: M17.12 Unilateral primary osteoarthritis, left knee (principal); E78.5 Hyperlipidemia, unspecified; I10 Essential (primary) hypertension; J44.9 Chronic obstructive pulmonary disease, unspecified; J45.909 Unspecified asthma, uncomplicated; K21.9 Gastro-esophageal reflux disease without esophagitis; Z72.0 Tobacco use
CPT/HCPCS: 64454; J1040; Q9966

== ENCOUNTER → 2021-04-03 10:25 | Outpatient (POV) | payer OTHER, SELFPAY ==
[2021-04-03 10:39] VITALS: BP 138/83; PULSE 115; RESP 18; O2SAT 96; BMI 18.4
--- NOTE | 2021-04-03 10:47 | HMH.PAINSOAP ---
[facility] Pain Management SOAP Note Subjective:: Patient is a pleasant 60-year-old male who comes in here today for follow-up after a left genicular block. Patient is currently being treated for bilateral osteoarthritis of the knees. Patient had a bilateral intra-articular knee joint injections in January 2021 that provided minimal relief. We then proceeded with a genicular block. After the left genicular block, patient says the he had about 80% relief after 3 days of the genicular block then that only lasted for about 3 to 4 days. He currently only has about 50% relief. He rates his pain today as 4 out of 10. Patient was saying that he went to the store and walk around for about an hour and did not feel any pain however as soon as he sat down in the car his pain got really bad. Patient denies any issues after the injection. His Cuauhtemoc number is [phone] with a morphine equivalent of 0. Drug screens have been reviewed and appropriate. Review of Systems General: No recent weight changes, no fever, no sleep disturbances Respiratory: No cough, no shortness of air, no recurring pulmonary infections Cardiovascular/peripheral vascular: No chest pain, no palpitations, no edema, no shortness of breath Gastrointestinal: No new onset incontinence, normal bowel movements reported Genitourinary: No new onset incontinence Musculoskeletal: Bilateral knee pain Psychiatric: [Normal mood/affect] Neurological: [Denies weakness in extremities], [denies balance issues] Objective:: Physical exam General: Alert and oriented x3, no acute distress, pleasant and cooperative Lungs: Respirations even and unlabored, symmetrical chest expansion Eyes: PERRL Musculoskeletal: Flexion and extension of bilateral knees somewhat guarded secondary to pain -- worse on the left, normal gait noted Neurological: Speech clear, no gross sensory deficit Assessment:: Osteoarthritis of bilateral knees Plan:: Patient has tried and failed conservative therapies such as oral medication, therapy, home exercise for nearly 6 weeks. We will schedule the patient for a left genicular block #2. I have discussed with the patient that we might consider doing an RFA to his genicular nerves if he gets temporary relief from the genicular blocks. Currently, patient is a bit hesitant to do this because he is scared that it might cause him more harm than benefit after the procedure. I discussed with him the we are targeting the same marriage that targeted in the previous genicular block. Risks of this procedure are minimal. Patient says that he will have to think about it after the second genicular block. Risks and benefits of the procedure have been explained to the patient. Patient would like to proceed with the procedure. Patient has been instructed to contact the clinic with any concerns before the next appointment. Dr. Be has reviewed this note and agrees with this plan of care. This note was dictated using voice recognition software and make contain errors or omissions. [facility] History Medical History: Reports:: Asthma, Chronic Obstructive Pulmonary Disease (COPD), Gastroesophageal Reflux Disease(GERD), Hyperlipidemia, Hypertension Denies:: Cancer, Diabetes Mellitus Type 1, Diabetes Mellitus Type 2, Internal Pacemaker, Lung Disease, MRSA, Seizures *Have you ever received a pneumonia vaccine?: No *Have you received a flu vaccine this season?: No Other Medical History: Denies: Blood Transfusion Reaction Laterality Cases: Left: Total Hip Replacement, Right: Carpal Tunnel Release Other Surgeries: Yes: Colonoscopy, EGD, Other. No: Pacemaker Amputation: No Fractures: No - *Social History Smoking Status: Current every day smoker Tobacco Type: cigarettes # Packs/Day (cigarettes): 1 Alcohol Intake: never Alcohol Intake Frequency:: a few times a week Substance Use Type: former substance user *Occupational Status:: unemployed Housing: house Household Members: family *Travel in the last 8 w
== END ==
PROVIDERS: Visit Provider Clinical Nurse Specialist Family Health
DX: M17.0 Bilateral primary osteoarthritis of knee (principal)
CPT/HCPCS: 99212; G0463

== ENCOUNTER 2021-04-07 09:16 | Day surgery (SDC) | payer OTHER, SELFPAY ==
[2021-04-07 09:50] VITALS: BP 122/72; PULSE 91; RESP 18; TEMP 36.6; O2SAT 97; BMI 18.4
[2021-04-07 10:00] VITALS: BP 128/78; PULSE 86; RESP 18; O2SAT 97
[2021-04-07 10:03] VITALS: PULSE 88; RESP 18; O2SAT 97
[2021-04-07 10:10] VITALS: BP 131/75; PULSE 92; RESP 20; O2SAT 97
--- NOTE | 2021-04-07 10:20 | P.PCN_ITS ---
- Procedure Date: 04/07/21 Time: 10:20 Anesthesiologist:: Yohana Elliott MD Complications:: None Pre-procedure Diagnosis:: Left knee osteoarthritis, left knee pain Post-procedure Diagnosis:: Same Indications for Procedure:: Patient is a very pleasant 60-year-old white male who presents today with chronic left-sided knee pain related to the above diagnosis. He has tried and failed conservative treatment including oral pain medications and home stretching program for greater than 6 weeks. Has previously undergone bilateral intra-articular knee joint injections in January 2021 but unfortunately he states he got very minimal pain relief. He has previously undergone a left- sided genicular nerve block in the past and notes 80% pain relief for a 4 days. He is requesting a repeat injection today. Plan for today is for the patient to undergo a repeat left-sided genicular nerve block injection #2. Procedure Details:: Left knee genicular block Informed consent was obtained and the risk and benefits of the procedure was explained to the patient. The patient was taken to the procedure room. The left knee was prepped using ChloraPrep. I placed 22-gauge needles into the area of the left superior medial genicular nerve, left superior lateral genicular nerve and left inferior medial genicular nerve. Needle placement was confirmed in AP and lateral views with dye. We then injected bupivacaine 0.25% 3 mL's and Depo-Medrol 25 mg into each area of the left superior medial genicular nerve, left superior lateral genicular nerve and left inferior medial genicular nerve. Patient tolerated the procedure well with no complications. Plan and Disposition:: We will follow-up with this patient in 2 weeks. Will reevaluate pain symptoms at that time.
== END 2021-04-07 10:10 | disposition home or self-care (01) ==
LOC: SC.PAINP 09:17
PROVIDERS: PCP Emergency Medicine; Visit Provider Anesthesiology Pain Medicine
DX: M17.12 Unilateral primary osteoarthritis, left knee (principal); E78.5 Hyperlipidemia, unspecified; I10 Essential (primary) hypertension; J44.9 Chronic obstructive pulmonary disease, unspecified; K21.9 Gastro-esophageal reflux disease without esophagitis; F41.9 Anxiety disorder, unspecified; F32.A Depression, unspecified; Z79.899 Other long term (current) drug therapy
CPT/HCPCS: 64624; J1040; Q9966

== ENCOUNTER → 2021-04-27 09:13 | Outpatient (POV) | payer OTHER, SELFPAY ==
[2021-04-27 09:24] VITALS: BP 141/93; PULSE 102; RESP 18; O2SAT 96; BMI 18.4
--- NOTE | 2021-04-27 09:31 | HMH.PAINSOAP ---
[facility] Pain Management SOAP Note Subjective:: Patient is a 60-year old white male who presents today for follow-up. He recently underwent a left-sided genicular nerve block #2. Patient got significant relief with the injection. He says that the pain is slowly starting to return to the left knee. He has had bilateral intra-articular knee injections in January 2021 with minimal relief. Today, he rates his pain a 5 out of 10. We do manage him with gabapentin 600 mg 1 tablet p.o. 3 times daily. He is having significant low back pain as well that radiates into his bilateral buttock and legs. Pain is present regardless of movement. He denies any saddle anesthesia or changes in bowel or bladder habit. Review of Systems General: No recent weight changes, no fever, no sleep disturbances Respiratory: No cough, no shortness of air, no recurring pulmonary infections Cardiovascular/peripheral vascular: No chest pain, no palpitations, no edema, no shortness of breath Gastrointestinal: No new onset incontinence, normal bowel movements reported Genitourinary: No new onset incontinence Musculoskeletal: Low back pain with radiation into bilateral lower extremities, left knee pain Psychiatric: [Normal mood/affect] Neurological: [Denies weakness in extremities], [denies balance issues] Objective:: Physical exam General: Alert and oriented x3, no acute distress, pleasant and cooperative Lungs: Respirations even and unlabored, symmetrical chest expansion Eyes: PERRL Musculoskeletal: Flexion and extension of lumbar [spine] and left lower extremity somewhat guarded secondary to pain, [antalgic gait noted] Neurological: Speech clear, no gross sensory deficit Assessment:: Osteoarthritis left knee, degenerative disc disease lumbar spine with lumbar radiculopathy symptoms Plan:: We will schedule the patient for an RFA left knee. He has had 2 genicular nerve blocks and got up to 80% relief for 2 weeks. The pain has returned. He has had intra-articular knee injections bilaterally with minimal relief. The patient would like to wait before proceeding with the RFA due to the weather. He does plan to contact the clinic for scheduling. We will give him prednisone 20 mg 1 tablet p.o. twice daily for 5 days for now while awaiting the RFA due to left knee pain and low back pain. We will continue the patient's gabapentin 600 mg 1 tablet p.o. 3 times daily. We will also give the patient tramadol 50 mg 1 tablet p.o. 3 times daily. Inna #[id number] has been reviewed and is appropriate. Dextran is appropriate. ORT is low risk. Patient has signed and completed a pain management agreement/contract today. Risks and benefits of the medication have been explained in detail to the patient. The patient does understand the risk of dependence on the medication when given over a prolonged period. Patient has been advised of risks of oversedation with the prescribed medication. Narcan has been offered to the paitent in the event of oversedation. Patient has been advised that a family member should also be educated regarding administration of Narcan. The patient has been advised to consult with his/her primary care provider and pharmacist regarding drug-drug interaction of medications currently prescribed. Patient has been prescribed a controlled substance after being counseled on the medication, medication safety, and possible side effects. [employer] report has been obtained and reviewed prior to prescription and found to be appropriate. Opioid contract was reviewed and signed by the patient, and that they have agreed to all of the terms set forth by our compliance program. Patient has been instructed to contact the clinic with any concerns before the next appointment. Dr. Be has reviewed this note and agrees with this plan of care. This note was dictated using voice recognition software and make contain errors or omissions. [facility] History I have rev
== END ==
PROVIDERS: Visit Provider Clinical Nurse Specialist Family Health
DX: M17.12 Unilateral primary osteoarthritis, left knee (principal); M51.16 Intervertebral disc disorders with radiculopathy, lumbar region
CPT/HCPCS: 99212; G0463

== ENCOUNTER → 2021-05-29 09:01 | Outpatient (POV) | payer OTHER, SELFPAY ==
[2021-05-29 09:08] VITALS: BP 129/81; PULSE 103; RESP 18; O2SAT 95; BMI 18.4
--- NOTE | 2021-05-29 11:01 | HMH.PAINSOAP ---
[facility] Pain Management SOAP Note Subjective:: Patient is a 60-year-old white male who is following up today after genicular block left knee. He is now having significant pain to the right knee. He has had intra-articular knee injection on the right side in the past with relief for about 1 week at about 70 to 80%. Patient would like to proceed with genicular block to the right knee. He did get 70 to 80% relief of the left knee for about 2 weeks. He would like to proceed with right knee and then consider RFA following the block to the right knee. Today, he rates his pain a 5 out of 10. Pain is made worse with standing and walking. He has tried physical therapy for more than 6 weeks in the past and continues with home stretching. Review of Systems General: No recent weight changes, no fever, no sleep disturbances Respiratory: No cough, no shortness of air, no recurring pulmonary infections Cardiovascular/peripheral vascular: No chest pain, no palpitations, no edema, no shortness of breath Gastrointestinal: No new onset incontinence, normal bowel movements reported Genitourinary: No new onset incontinence Musculoskeletal: Bilateral knee pain, worse to right knee at this time Psychiatric: [Normal mood/affect] Neurological: [Denies weakness in extremities], [denies balance issues] Objective:: Physical exam General: Alert and oriented x3, no acute distress, pleasant and cooperative Lungs: Respirations even and unlabored, symmetrical chest expansion Eyes: PERRL Musculoskeletal: Flexion and extension of bilateral lower extremities somewhat guarded secondary to pain, [antalgic gait noted] Neurological: Speech clear, no gross sensory deficit Assessment:: Osteoarthritis bilateral knees, bilateral knee pain Plan:: We will schedule the patient for a right knee geniculate block. He has had injective therapy with intra-articular injections to the knees and gets short-term relief. He is also had genicular block to the left knee and got significant relief. We will see him back in the clinic after the block to see if he gets relief. He is not on any anticoagulation therapy. Possible side effects of corticosteroids have been discussed with the patient. Risks and benefits of the procedure have been explained to the patient. Patient would like to proceed with the procedure. Patient has been instructed to contact the clinic with any concerns before the next appointment. Dr. Be has reviewed this note and agrees with this plan of care. This note was dictated using voice recognition software and make contain errors or omissions. [facility] History I have reviewed the patient's past medical history: Yes Medical History: Reports:: Asthma, Chronic Obstructive Pulmonary Disease (COPD), Gastroesophageal Reflux Disease(GERD), Hyperlipidemia, Hypertension Denies:: Cancer, Diabetes Mellitus Type 1, Diabetes Mellitus Type 2, Internal Pacemaker, Lung Disease, MRSA, Seizures *Have you ever received a pneumonia vaccine?: No *Have you received a flu vaccine this season?: No Other Medical History: Denies: Blood Transfusion Reaction Laterality Cases: Left: Total Hip Replacement, Right: Carpal Tunnel Release Other Surgeries: Yes: Colonoscopy, EGD, Other. No: Pacemaker Amputation: No Fractures: No - *Social History Smoking Status: Current every day smoker Tobacco Type: cigarettes # Packs/Day (cigarettes): 1 Alcohol Intake: never Alcohol Intake Frequency:: a few times a week Substance Use Type: former substance user *Occupational Status:: unemployed Housing: house Household Members: family *Travel in the last 8 weeks: None Family Hx:: Cancer, Heart Attack, Hypertension
== END ==
PROVIDERS: Visit Provider Clinical Nurse Specialist Family Health
DX: M17.0 Bilateral primary osteoarthritis of knee (principal)
CPT/HCPCS: 99212; G0463

== ENCOUNTER → 2021-06-12 16:00 | Outpatient (CLI) | payer OTHER, SELFPAY | PROVIDERS: Visit Provider Nurse Practitioner Family | DX: Z20.822 Contact with and (suspected) exposure to COVID-19 (principal); R69 Illness, unspecified; R06.09 Other forms of dyspnea | CPT/HCPCS: C9803; U0003; U0005 ==

== ENCOUNTER 2021-06-16 11:02 | Day surgery (SDC) | payer OTHER, SELFPAY ==
[2021-06-16 11:10] VITALS: BP 123/93; BP 125/73; PULSE 114; PULSE 120; RESP 20; TEMP 36.6; O2SAT 96; O2SAT 98; BMI 18.4
[2021-06-16 11:44] VITALS: BP 124/72; PULSE 117; RESP 20; O2SAT 97
[2021-06-16 11:55] VITALS: BP 134/72; PULSE 110; RESP 20; O2SAT 95
--- NOTE | 2021-06-16 11:57 | P.PCN_ITS ---
- Procedure Date: 06/16/21 Time: 11:57 Anesthesiologist:: Yohana Elliott MD Complications:: None Pre-procedure Diagnosis:: Right knee pain secondary to primary osteoarthritis Post-procedure Diagnosis:: Same Indications for Procedure:: This patient is a very pleasant 60-year-old white male who presents today with right-sided knee pain related to the above diagnosis. He has tried and failed conservative treatment getting oral pain medications and home stretching program for greater than 6 weeks. He has previously undergone intra-articular knee injections with very minimal pain relief. The plan for today is for the patient to undergo right-sided genicular nerve block injections under fluoroscopy #1 Procedure Details:: Informed consent was obtained and the risk and benefits of the procedure was explained to the patient. The patient was taken to the procedure room. The right knee was prepped using ChloraPrep. I placed 22-gauge needles into the ar ea of the right superior medial genicular nerve, right superior lateral genicular nerve and right inferior medial genicular nerve. Needle placement was confirmed in AP and lateral views with dye. We then injected bupivacaine 0.25% 3 mL's and Depo-Medrol 25 mg into each area of the right superior medial genicular nerve, right superior lateral genicular nerve and right inferior medial genicular nerve. Patient tolerated the procedure well with no complications. Plan and Disposition:: Follow-up with this patient in 2 weeks. Will reevaluate pain symptoms at that time.
== END 2021-06-16 11:57 | disposition home or self-care (01) ==
LOC: SC.PAINP 11:02
PROVIDERS: PCP Emergency Medicine; Visit Provider Anesthesiology Pain Medicine
DX: M17.11 Unilateral primary osteoarthritis, right knee (principal); E78.5 Hyperlipidemia, unspecified; I10 Essential (primary) hypertension; J44.9 Chronic obstructive pulmonary disease, unspecified; K21.9 Gastro-esophageal reflux disease without esophagitis; Z72.0 Tobacco use
CPT/HCPCS: 20610; 77002; J1040; Q9966

== ENCOUNTER → 2021-07-13 09:45 | Outpatient (POV) | payer OTHER, SELFPAY ==
[2021-07-13 10:10] VITALS: BP 123/75; PULSE 96; RESP 18; TEMP 36.7; O2SAT 98; BMI 18.4
--- NOTE | 2021-07-13 12:07 | P.CONS_ITS ---
[facility] Pain Management SOAP Note Subjective:: Patient is a pleasant 60-year-old male who presents today for follow-up after a right genicular nerve block #1 on 06/16/2021. Patient is currently being treated for bilateral osteoarthritis of the knees. After the procedure, patient had significant relief of about 80 to 90% for 5 days. Patient reports no issues after the procedure. Patient previously had a left genicular nerve block that helped for a couple of weeks. Patient is a bit hesitant to move forward with any RFA at the moment. His pain is 7 out of 10. He is also being managed with gabapentin 600 mg 3 times a day and tramadol 50 mg 3 times a day. [facility] #[id number] with an active morphine equivalent of 15. General: No recent weight changes, no fever, no sleep disturbances Respiratory: No cough, no shortness of air, no recurring pulmonary infections Cardiovascular/peripheral vascular: No chest pain, no palpitations, no edema, no shortness of breath Gastrointestinal: No new onset incontinence, normal bowel movements reported Genitourinary: No new onset incontinence Musculoskeletal: Bilateral knee pain Psychiatric: [Normal mood/affect] Neurological: [Denies weakness in extremities], [denies balance issues] Objective:: General: Alert and oriented x3, no acute distress, pleasant and cooperative, [on room air] Lungs: Respirations even and unlabored, symmetrical chest expansion Eyes: PERRL Musculoskeletal: Limited range of motion of bilateral knees secondary to pain; Bilateral knees: there is no swelling or tenderness to palpation. Neurological: Speech clear, no gross sensory deficit Assessment:: Osteoarthritis of bilateral knees Plan:: Patient had significant relief for 5 days after the right genicular nerve block. She has intra-articular knee injections in the past with no relief. Patient has tried and failed conservative therapy such as oral medication, physical therapy, and at home exercise for you in 6 weeks. We will schedule the patient for a repeat right genicular nerve block. Risks and benefits of the procedure have been explained to the patient. Patient would like to proceed with the procedure. I also discussed with the patient that he is a good candidate for a genicular nerve RFA. At the moment, patient is hesitant to do this procedure. Patient has been instructed to contact the clinic with any concerns before the next appointment. Dr. Be has reviewed this note and agrees with this plan of care. This note was dictated using voice recognition software and make contain errors or omissions. [facility] History Medical History: Reports:: Asthma, Chronic Obstructive Pulmonary Disease (COPD), Gastroesophageal Reflux Disease(GERD), Hyperlipidemia, Hypertension Denies:: Cancer, Diabetes Mellitus Type 1, Diabetes Mellitus Type 2, Internal Pacemaker, Lung Disease, MRSA, Seizures *Have you ever received a pneumonia vaccine?: No *Have you received a flu vaccine this season?: No Other Medical History: Denies: Blood Transfusion Reaction Laterality Cases: Left: Total Hip Replacement, Right: Carpal Tunnel Release Other Surgeries: Yes: Colonoscopy, EGD, Other. No: Pacemaker Amputation: No Fractures: No - *Social History Smoking Status: Current every day smoker Tobacco Type: cigarettes # Packs/Day (cigarettes): 1 Alcohol Intake: never Alcohol Intake Frequency:: a few times a week Substance Use Type: former substance user *Occupational Status:: other Housing: house Household Members: family *Travel in the last 8 weeks: None Family Hx:: No significant family history
== END ==
PROVIDERS: Visit Provider Student in an Organized Health Care Education/Training Program
DX: M17.0 Bilateral primary osteoarthritis of knee (principal)
CPT/HCPCS: 99212; G0463

== ENCOUNTER → 2021-07-21 12:37 | Day surgery (SDC) | payer OTHER, SELFPAY ==
[2021-07-21 12:45] VITALS: BP 153/91; PULSE 94; RESP 20; TEMP 36.6; O2SAT 97; BMI 18.4
[2021-07-21 13:32] VITALS: BP 160/91; PULSE 86; RESP 20; O2SAT 95
[2021-07-21 13:36] VITALS: BP 146/98; PULSE 88; RESP 20; O2SAT 95
[2021-07-21 13:42] VITALS: BP 154/98; PULSE 83; RESP 20; O2SAT 97
--- NOTE | 2021-07-21 14:11 | HMH.PMPROC ---
- Procedure Date: 07/21/21 Time: 14:11 Anesthesiologist:: Julien Be MD Complications:: None Pre-procedure Diagnosis:: Right knee pain with degenerative osteoarthritis and degenerative joint disease Post-procedure Diagnosis:: Same Indications for Procedure:: Patient is a pleasant 60-year-old white male who we are treating for bilateral knee pain with degenerative osteoarthritis and degenerative joint disease. He has done well with previous genicular nerve blocks. He got 80 to 90% with his last genicular nerve block for 5 days. He presents for repeat genicular nerve block to the right knee today. Previous to this he has been hesitant about proceeding with RFA since his been getting good relief with the blocks. Procedure Details:: Right knee genicular block Informed consent was obtained and the risk and benefits of the procedure was explained to the patient. The patient was taken to the procedure room. The left knee was prepped using ChloraPrep. I placed 22-gauge needles into the area of the right superior medial genicular nerve, right superior lateral genicular nerve and right inferior medial genicular nerve. Needle placement was confirmed in AP and lateral views with dye. We then injected bupivacaine 0.25% 3 mL's and Depo-Medrol 25 mg into each area of the right superior medial genicular nerve, right superior lateral genicular nerve and right inferior medial genicular nerve. Patient tolerated the procedure well with no complications. Plan and Disposition:: We will follow-up with him in 2 weeks. Will reevaluate symptoms at that time and if patient wants to we can proceed to RFA if needed
== END ==
PROVIDERS: PCP Emergency Medicine; Visit Provider Anesthesiology
DX: M17.0 Bilateral primary osteoarthritis of knee (principal); J44.9 Chronic obstructive pulmonary disease, unspecified; J45.909 Unspecified asthma, uncomplicated; K21.9 Gastro-esophageal reflux disease without esophagitis; E78.5 Hyperlipidemia, unspecified; I10 Essential (primary) hypertension; Z72.0 Tobacco use; F41.9 Anxiety disorder, unspecified; Z79.899 Other long term (current) drug therapy
CPT/HCPCS: 64454; J1040; Q9966

== ENCOUNTER → 2021-07-24 15:26 | Outpatient (CLI) | payer OTHER, SELFPAY ==
--- NOTE | 2021-07-24 15:26 | CT_ITS ---
FINAL REPORT CLINICAL HISTORY: lung cancer screening. pack a day smoker for 35 years COMPARISON: July 22, 2020 and November 01, 2016 FINDINGS: Low-Dose Chest CT CTDI vol (mGy): 2.90 DLP (mGy-cm): 111.51 Axial images were obtained from the lung apex to the mid abdomen by computed tomography. Low-dose protocol was utilized. FINDINGS: CHEST: There is no axillary adenopathy. There is no hilar or mediastinal adenopathy. The heart is proper size. There is no pericardial or pleural effusion. Limited images of the upper abdomen are unremarkable. Lung window images demonstrate a 2 mm nodule in the right lower lobe on image 53 which has been stable since 2017. There is a stable 2 mm nodule in the left lower lobe. There are multiple calcified granulomas. There is mild scarring. There are mild changes of emphysema. There is mild diffuse bronchial wall thickening consistent with bronchitis. IMPRESSION: Stable nodules. Mild diffuse bronchial wall thickening consistent with bronchitis. Lung RADS category 1. Recommend 12 month follow-up low-dose chest CT. Reviewed, Interpreted and Dictated by Antonio Rees III, MD Transcribed by Barbara Au Authenticated by Antonio Rees III, MD on 07/24/2021 04:46:37 PM [facility]
== END ==
PROVIDERS: PCP Emergency Medicine; Visit Provider Internal Medicine Pulmonary Disease
DX: Z87.891 Personal history of nicotine dependence (principal); Z12.2 Encounter for screening for malignant neoplasm of respiratory organs
CPT/HCPCS: 71271

== ENCOUNTER → 2021-08-17 13:26 | Outpatient (POV) | payer OTHER, SELFPAY ==
[2021-08-17 13:37] VITALS: BP 124/86; PULSE 115; RESP 18; TEMP 36.7; O2SAT 96; BMI 18.4
--- NOTE | 2021-08-17 16:13 | HMH.PAINSOAP ---
[facility] Pain Management SOAP Note Subjective:: Patient is a pleasant 60-year-old male who presents today for follow-up. Patient is currently being treated for bilateral osteoarthritis of the knees. Patient has had 3 rounds of left genicular nerve block and 3 rounds of right genicular nerve block. Every time the patient had a genicular nerve block, patient gets 1 to 2 weeks of significant relief of about 80 to 90%. I have discussed with the patient previously that he is a good candidate for genicular nerve RFA. Patient continues to be hesitant in moving forward with any ablation. He rates his pain today 7 out of 10. He is also being managed with gabapentin 600 mg 3 times a day and tramadol 50 mg 3 times a day. Denies any side effects from these medications. Patient does not need any refills today. [facility] #[id number] with an active morphine equivalent of 15. Review of Systems: General: No recent weight changes, no fever, no sleep disturbances Respiratory: No cough, no shortness of air, no recurring pulmonary infections Cardiovascular/peripheral vascular: No chest pain, no palpitations, no edema, no shortness of breath Gastrointestinal: No new onset incontinence, normal bowel movements reported Genitourinary: No new onset incontinence Musculoskeletal: Bilateral knee pain Psychiatric: [Normal mood/affect] Neurological: [Denies weakness in extremities], [denies balance issues] Objective:: Physical Exam: General: Alert and oriented x3, no acute distress, pleasant and cooperative, [on room air] Lungs: Respirations even and unlabored, symmetrical chest expansion Eyes: PERRL Musculoskeletal: Limited range of motion bilateral knees secondary to pain. There is no swelling or erythema around the bilateral knees. Neurological: Speech clear, no gross sensory deficit Assessment:: Osteoarthritis of bilateral knees Plan:: Patient continues to have significant relief after each genicular nerve block on both knees. Patient has had 3 rounds of genicular nerve block on the left knee and 2 rounds on his right knee. I discussed with the patient that he is a good candidate for a genicular nerve ablation. Today, he was a bit hesitant at first, but after some time with the patient, patient has decided that he would try a left genicular nerve ablation. We will schedule the patient for a left genicular nerve RFA. Risks and benefits of the procedure have been explained to the patient. Patient would like to proceed with the procedure. Patient has been instructed to contact the clinic with any concerns before the next appointment. Dr. Be has reviewed this note and agrees with this plan of care. This note was dictated using voice recognition software and make contain errors or omissions. [facility] History Medical History: Reports:: Asthma, Chronic Obstructive Pulmonary Disease (COPD), Gastroesophageal Reflux Disease(GERD), Hyperlipidemia, Hypertension Denies:: Cancer, Diabetes Mellitus Type 1, Diabetes Mellitus Type 2, Internal Pacemaker, Lung Disease, MRSA, Seizures *Have you ever received a pneumonia vaccine?: No *Have you received a flu vaccine this season?: No Other Medical History: Denies: Blood Transfusion Reaction Laterality Cases: Left: Total Hip Replacement, Right: Carpal Tunnel Release Other Surgeries: Yes: Colonoscopy, EGD, Other. No: Pacemaker Amputation: No Fractures: No - *Social History Smoking Status: Current every day smoker Tobacco Type: cigarettes # Packs/Day (cigarettes): 1 Alcohol Intake: never Alcohol Intake Frequency:: a few times a week Substance Use Type: former substance user *Occupational Status:: employed Housing: house Household Members: family *Travel in the last 8 weeks: None Family Hx:: No significant family history
== END ==
PROVIDERS: Visit Provider Student in an Organized Health Care Education/Training Program
DX: M17.0 Bilateral primary osteoarthritis of knee (principal)
CPT/HCPCS: 99212; G0463

== ENCOUNTER 2021-09-01 09:55 | Day surgery (SDC) | payer OTHER, SELFPAY ==
[2021-09-01 10:05] VITALS: BP 146/88; PULSE 102; RESP 22; TEMP 36.6; O2SAT 93; BMI 18.4
--- NOTE | 2021-09-01 10:36 | HMH.PMPROC ---
- Procedure Date: 09/01/21 Time: 10:36 Anesthesiologist:: Pa Bain CRNA Complications:: None Pre-procedure Diagnosis:: Osteoarthritis bilateral knees. Post-procedure Diagnosis:: Same Indications for Procedure:: Patient is a very pleasant 60-year-old male who presents for left genicular nerve RFA. Patient had genicular nerve block in the past with significant improvement in terms of the left knee pain. Procedure Details:: Details of the procedure were explained to the patient. The patient taken the procedure room placed in the supine position. The knee was positioned at 45 degree angle. The knee was cleansed using chlorhexidine as a cleansing solution. Using fluoroscopy guidance a marker was placed over the left and right superior genicular nerve sites as well as medial inferior genicular nerve site. Skin and subcutaneous tissue was anesthetized using 1% lidocaine 25-gauge needle. A 22-gauge 3 and half inch spinal needle was used advanced using AP fluoroscopy guidance until contact was made with the junction of the femoral diaphysis and the medial femoral epicondyle. A second spinal needle was used to advance an AP trajectory to make contact with the femoral diaphysis and the lateral femoral epicondyle. A third needle was used and advanced in a similar manner to make contact with the tibial diaphysis in the medial tibial condyle. Lateral images were taken to confirm that the needle tips were at the midpoint of the femur and tibia. After negative aspiration 2 cc of solution 0.25% bupivacaine 20 mg of methylprednisolone was injected at each site. Plan and Disposition:: Patient was discharged without incident.
[2021-09-01 10:41] VITALS: BP 149/80; PULSE 94; RESP 18; O2SAT 96
[2021-09-01 10:42] VITALS: BP 134/90; PULSE 86; RESP 18; O2SAT 96
[2021-09-01 11:07] VITALS: BP 131/78; PULSE 93; RESP 18; O2SAT 96
== END 2021-09-01 11:08 | disposition home or self-care (01) ==
LOC: SC.PAINP 09:57
PROVIDERS: PCP Emergency Medicine; Visit Provider Nurse Anesthetist, Certified Registered
DX: M17.0 Bilateral primary osteoarthritis of knee (principal); J44.9 Chronic obstructive pulmonary disease, unspecified; K21.9 Gastro-esophageal reflux disease without esophagitis; E78.5 Hyperlipidemia, unspecified; I10 Essential (primary) hypertension; Z72.0 Tobacco use
CPT/HCPCS: 64624; J1040

== ENCOUNTER → 2022-01-08 13:01 | Outpatient (POV) | payer OTHER, SELFPAY ==
--- NOTE | 2022-01-08 13:12 | EXP.PAIN.SOA ---
[facility] Pain Management SOAP Note Subjective:: Patient is a pleasant 61-year-old male who presents today for follow-up and medication refill. We are currently treating the patient for osteoarthritis bilateral knees and degenerative disc disease of lumbar spine with lumbar radiculopathy symptoms. Today the patient rates his pain a 7 out of 10 and states it is primarily in his low back, bilateral knees and neck. Patient denies any new trauma or injury. He denies any change to the location or type of pain he experiences. Patient states this is a aching sensation that is worse with increased activity. He states this has been going on for years. Patient states he is very active and walks frequently which worsens his symptoms. Patient has done injective therapy in the past that provided significant improvement of his symptoms. He is currently managed with gabapentin 600 mg 3 times a day and tramadol 50 mg 3 times a day. Patient denies any side effects from these medications. He states these medications do adequately manage his pain. He is requesting refills at today's visit. His Cuauhtemoc is [id number] with a morphine equivalent of 0. It has been reviewed and appropriate. Review of Systems: General: No recent weight changes, no fever, no sleep disturbances Respiratory: No cough, no shortness of air, no recurring pulmonary infections Cardiovascular/peripheral vascular: No chest pain, no palpitations, no edema, no shortness of breath Gastrointestinal: No new onset incontinence, normal bowel movements reported Genitourinary: No new onset incontinence Musculoskeletal: Low back pain, bilateral knee pain, neck pain Psychiatric: [Normal mood/affect] Neurological: [Denies weakness in extremities], [denies balance issues] Objective:: Physical Exam: General: Alert and oriented x3, no acute distress, pleasant and cooperative Lungs: Respirations even and unlabored, symmetrical chest expansion Eyes: PERRL Musculoskeletal: Flexion and extension of lumbar [spine], bilateral knees somewhat guarded secondary to pain, [antalgic gait noted] Neurological: Speech clear, no gross sensory deficit Assessment:: Degenerative disc disease of lumbar spine with lumbar radiculopathy symptoms, osteoarthritis bilateral knees Plan:: Patient continues to have significant pain in his low back, bilateral knees and neck. I will refill the patient's gabapentin 600 mg 3 times a day and tramadol 50 mg 3 times a day and provide a 1 month supply of this medication. At this time the patient does not need any additional injective therapy. We will schedule the patient for a 1 month follow-up. He will return to clinic in 1 month for follow-up, reevaluation of symptoms and medication refill. Patient has been advised of risks of oversedation with the prescribed medication. Narcan has been offered to the patient in the event of oversedation. Patient has been advised that a family member should also be educated regarding administration of Narcan. Patient has been instructed to contact the clinic with any concerns before the next appointment. Dr. Be has reviewed this note and agrees with this plan of care. This note was dictated using voice recognition software and make contain errors or omissions. [facility] Medical History (Updated 08/07/21 @ 13:23 by Nathan Guerra MD) Anxiety and depression Chronic pain COPD (chronic obstructive pulmonary disease) Dysphagia Heartburn Insomnia Polyarthralgia Social History Smoking Status: Current every day smoker tobacco type: cigarettes packs per day: 1 alcohol intake: never substance use type: former substance user current occupational status: employed Travel in the last 8 weeks: None household members: family housing: house current occupational exposures/hazards: No caffeine: Yes
[2022-01-08 14:02] VITALS: BP 140/68; PULSE 100; RESP 20; TEMP 37.1; O2SAT 96; BMI 18.4
== END | disposition home or self-care (01) ==
PROVIDERS: PCP Emergency Medicine; Visit Provider Nurse Practitioner Family
DX: M51.16 Intervertebral disc disorders with radiculopathy, lumbar region (principal); M17.11 Unilateral primary osteoarthritis, right knee; M17.12 Unilateral primary osteoarthritis, left knee; F17.210 Nicotine dependence, cigarettes, uncomplicated
CPT/HCPCS: 99212; G0463

== ENCOUNTER → 2022-01-08 13:22 | Outpatient (CLI) | payer OTHER, SELFPAY ==
[2022-01-08 13:57] LABS: Amphetamine/Metha Screen,Urine Negative ng/ml (<1000)
[2022-01-08 13:58] LABS: Barbiturates Screen,Urine Negative ng/ml (<200)
[2022-01-08 13:59] LABS: Benzodiazepines Screen,Urine Positive ng/ml (<200); Cannabinoid Screen,Urine Negative ng/ml (<50)
[2022-01-08 14:00] LABS: Cocaine Screen,Urine Negative ng/ml (<300)
[2022-01-08 14:01] LABS: Methadone Screen,Urine Negative ng/ml (<300); Opiate Screen,Urine Negative ng/ml (<300)
[2022-01-08 14:02] LABS: Phencyclidine Screen,Urine Negative ng/ml (<25)
[2022-01-16 09:12] LABS: Opiates Negative (Cutoff=100)
== END ==
PROVIDERS: PCP Emergency Medicine; Visit Provider Nurse Practitioner Family
DX: Z79.891 Long term (current) use of opiate analgesic (principal)
CPT/HCPCS: 80305; 80361; 80365; G0480

== ENCOUNTER → 2022-02-12 14:09 | Outpatient (POV) | payer OTHER, SELFPAY ==
[2022-02-12 14:43] VITALS: BP 131/110; PULSE 107; RESP 18; TEMP 36.4; O2SAT 98; BMI 20.9
--- NOTE | 2022-02-12 14:55 | EXP.PAIN.SOA ---
[facility] Pain Management SOAP Note Subjective:: Patient is a pleasant 61-year-old male who presents today for medication refill and follow-up. We are currently treating the patient for osteoarthritis bilateral knees and degenerative disc disease of lumbar spine with lumbar radiculopathy symptoms. Today the patient rates his pain a 7 out of 10. He states the pain is primarily in his low back, left hip and left knee. Patient denies any new trauma or injury. He denies any change in location or type of pain he experiences. Patient describes this as a aching, throbbing sensation that is worse with increased activity. Patient states he has had this for years and it is just worsened over time. Patient has done injective therapy in the past including a genicular RFA that provided significant improvement of his symptoms. Patient is currently managed with gabapentin 600 mg 3 times a day and tramadol 50 mg 3 times a day. Patient denies any side effects from this medication. He states this medication does adequately manage his pain symptoms. He is requesting refill at today's visit. His Cuauhtemoc is [phone] with a morphine equivalent of 15. It has been reviewed and appropriate. Review of Systems: General: No recent weight changes, no fever, no sleep disturbances Respiratory: No cough, no shortness of air, no recurring pulmonary infections Cardiovascular/peripheral vascular: No chest pain, no palpitations, no edema, no shortness of breath Gastrointestinal: No new onset incontinence, normal bowel movements reported Genitourinary: No new onset incontinence Musculoskeletal: Low back pain, left hip pain, left knee pain Psychiatric: [Normal mood/affect] Neurological: [Denies weakness in extremities], [denies balance issues] Objective:: Physical Exam: General: Alert and oriented x3, no acute distress, pleasant and cooperative Lungs: Respirations even and unlabored, symmetrical chest expansion Eyes: PERRL Musculoskeletal: Flexion and extension of lumbar [spine] somewhat guarded secondary to pain, [antalgic gait noted] Neurological: Speech clear, no gross sensory deficit Assessment:: Degenerative disc disease of lumbar spine with lumbar radiculopathy symptoms, bilateral knee osteoarthritis, left hip pain Plan:: Patient is experiencing significant pain in his low back radiating into his left hip and left knee. I will refill the patient's gabapentin 600 mg 3 times a day and tramadol 50 mg 3 times a day and provide a 1 month supply of this medication. I have counseled the patient regarding injective therapy that may be beneficial including a repeat genicular RFA. At this time the patient states he would like to wait. We will follow-up with the patient in 1 month. Patient will return to clinic in 1 month for reevaluation of symptoms, medication refill and follow-up. Patient has been advised of risks of oversedation with the prescribed medication. Narcan has been offered to the patient in the event of oversedation. Patient has been advised that a family member should also be educated regarding administration of Narcan. Patient has been instructed to contact the clinic with any concerns before the next appointment. Dr. Be has reviewed this note and agrees with this plan of care. This note was dictated using voice recognition software and make contain errors or omissions. [facility] Medical History (Updated 08/07/21 @ 13:23 by Nathan Guerra MD) Anxiety and depression Chronic pain COPD (chronic obstructive pulmonary disease) Dysphagia Heartburn Insomnia Polyarthralgia Social History Smoking Status: Current every day smoker tobacco type: cigarettes packs per day: 1 alcohol intake: never substance use type: former substance user current occupational status: retired Travel in the last 8 weeks: None household members: family housing: house current occupational exposures/hazards: No caffeine: Yes
== END | disposition home or self-care (01) ==
PROVIDERS: PCP Emergency Medicine; Visit Provider Nurse Practitioner Family
DX: M51.16 Intervertebral disc disorders with radiculopathy, lumbar region (principal); M17.0 Bilateral primary osteoarthritis of knee; M25.552 Pain in left hip; Z72.0 Tobacco use; Z79.899 Other long term (current) drug therapy
CPT/HCPCS: 99212; G0463

== ENCOUNTER 2022-03-20 14:41 | Emergency (ER) | payer OTHER, SELFPAY ==
[2022-03-20] VITALS (8 sets, daily range): BP systolic 114–130; BP diastolic 62–111; PULSE 64–78; RESP 18–19; TEMP 36.6; O2SAT 95–96; BMI 19.0
--- NOTE | 2022-03-20 14:34 | ECG_ITS ---
APPROVED REPORT Exam: Resting ECG HR:65 bpm ECG Measurements Heart Rate 65 AXES [place] 116 P 34 QRSd 85 QRS 70 QT 370 T 76 QTc 381 Conclusion SINUS RHYTHM WITH SHORT [place] INTERVAL BORDERLINE ECG UNCONFIRMED REPORT Electronically signed by : Darvin Dempsey MD 03/20/2022 20:18:54
--- NOTE | 2022-03-20 14:40 | XR_ITS ---
FINAL REPORT CLINICAL HISTORY: chest pain COMPARISON: 03/25/2019 FINDINGS: PORTABLE CHEST The heart is normal in size. The mediastinum is unremarkable. The lungs are hyperlucent compatible with emphysema. No acute pulmonary density is identified. There is no pneumothorax. IMPRESSION: Findings compatible with emphysema. No acute pulmonary density identified. Reviewed, Interpreted and Dictated by Maria Fernanda Gooden MD Transcribed by Barbara Au Authenticated and [facility]
--- NOTE | 2022-03-20 14:42 | HMH.EDGENADL ---
Discharge Plan Disposition Patient Disposition: Home, Self-Care Condition: Fair Prescriptions Prescriptions: New ibuprofen 600 mg tablet 600 mg PO Q8H PRN (Reason: pain) Qty: 30 0RF No Action quetiapine 25 mg tablet See Rx Instructions .Route .COMPLEX Qty: 90 1RF Rx Instructions: TAKE ONE TABLET BY MOUTH AT BEDTIME albuterol sulfate 90 mcg/actuation HFA aerosol inhaler 2 inh IH Q6H PRN (Reason: shortness of breath or wheezing) 90 Days Qty: 8.5 3RF ipratropium-albuterol 0.5 mg-3 mg(2.5 mg base)/3 mL solution for nebulization 3 ml IH QID PRN (Reason: shortness of breath or wheezing) 90 Days Qty: 270 3RF ergocalciferol (vitamin D2) 1,250 mcg (50,000 unit) capsule See Rx Instructions .ROUTE .COMPLEX Qty: 4 0RF Dose Instruction: TAKE ONE CAPSULE BY MOUTH EVERY WEEK Rx Instructions: TAKE ONE CAPSULE BY MOUTH EVERY WEEK loratadine 10 mg tablet See Rx Instructions .ROUTE .COMPLEX Qty: 30 0RF Dose Instruction: TAKE ONE TABLET BY MOUTH ONCE A DAY FOR ALLERGIES Rx Instructions: TAKE ONE TABLET BY MOUTH ONCE A DAY FOR ALLERGIES cholecalciferol (vitamin D3) 25 mcg (1,000 unit) tablet See Rx Instructions .ROUTE .COMPLEX Qty: 30 0RF Dose Instruction: TAKE ONE TABLET BY MOUTH ONCE A DAY Rx Instructions: TAKE ONE TABLET BY MOUTH ONCE A DAY famotidine 40 mg tablet See Rx Instructions .ROUTE .COMPLEX Qty: 30 0RF Dose Instruction: TAKE ONE TABLET BY MOUTH ONCE A DAY FOR GERD Rx Instructions: TAKE ONE TABLET BY MOUTH ONCE A DAY FOR GERD terbinafine HCl 15 GM cream 1 applic TP BID duloxetine 30 mg capsule,delayed release(DR/EC) See Rx Instructions .ROUTE .COMPLEX Rx Instructions: TAKE ONE CAPSULE BY MOUTH ONCE A DAY FOR DEPRESSION gabapentin 600 MG tablet 600 mg PO TID Qty: 90 0RF tramadol 50 MG tablet 50 mg PO TID Qty: 90 0RF ipratropium-albuterol 3 ML solution for nebulization See Rx Instructions .Route .COMPLEX Rx Instructions: INHALE CONTENTS OF 1 VIAL VIA NEBULIZER FOUR TIMES A DAY NEEDED FOR SHORTNESS OF BREATH OR WHEEZING hydroxyzine HCl 10 MG tablet See Rx Instructions .Route .COMPLEX Rx Instructions: TAKE ONE TABLET BY MOUTH 3 TIMES A DAY NEEDED FOR ANXIETY fluticasone propionate 120 PUFFS HFA aerosol inhaler 1 puff IH BID umeclidinium-vilanterol 1 EACH blister with device 1 inh IH DAILY atorvastatin 10 mg tablet See Rx Instructions .ROUTE .COMPLEX Rx Instructions: TAKE ONE TABLET BY MOUTH ONCE A DAY FOR CHOLESTEROL hydrocortisone acetate [Anusol-HC] 25 mg suppository 25 mg RC DAILY Referrals Follow up/Referrals: Provider,MD Lucio [Primary Care Provider] - See instructions Rodolfo Mattson MD [Staff Physician] - See instructions Activity Restrictions/Add. Instructions Additional Instructions/Restrictions: You have been evaluated for chest pain. Overall presentation is concerning for costochondritis and chest wall pain. Please take anti-inflammatories like 600 mg ibuprofen every 6-8 hours. Follow-up with your primary care doctor in 1 to 2 days for symptom recheck. Follow-up with cardiology, Dr. Mattson. Return to the emergency department at once for any new or worsening symptoms, chest pain, difficulty breathing, other concerns Clinical Impressions Clinical Impression: Chest wall pain, Acute costochondritis Discharge ED Provider: Latesha Price Adult HPI General Chief complaint: Chest Pain Stated complaint: CP Time Seen by Provider: 03/20/22 14:41 History of Present Illness HPI narrative: 61-year-old male presenting to the emergency department with chest pain. Pain is located on the left side of the chest, near the sternum. He has had pain and on and off for the last week. Seems to happen randomly. No particular association with exertion or eating. Pain is described as squeezing. Nothing seems to haydee
[2022-03-20 14:50] LABS: Basophils # 0.1 K/mm3 (0-0.2); Basophils % 1.6 % (0.1-2.0); Eosinophils # 0.2 K/mm3 (0.0-0.4); Eosinophils % 2.3 % (0.1-12.0); Hematocrit 54.7 % (42.0-52.0); Hemoglobin 16.9 g/dL (14.1-18.0); Lymphocytes # 1.2 K/mm3 (0.7-4.5); Lymphocytes % 17.2 % (10-50); Mean Corpuscular HGB Conc 30.8 g/dL (31.8-35.4); Mean Corpuscular Hemoglobin 29.8 pg (27.0-31.2); Mean Corpuscular Volume 96.6 fl (80-94); Mean Platelet Volume 8.6 fl (7.4-10.4); Monocytes # 0.5 K/mm3 (0.1-1.0); Monocytes % 7.7 % (1.7-9.3); Neutrophils # 4.8 K/mm3 (1.8-7.8); Neutrophils % 71.2 % (37.0-80.0); Platelet Count 380 K/mm3 (142-424); Red Blood Count 5.66 M/mm3 (4.60-6.20); Red Cell Distribution Width 13.2 % (11.5-17.5); White Blood Count 6.7 K/mm3 (4.8-10.8)
[2022-03-20 14:51] LABS: Chloride 102 mmol/L (98-107)
[2022-03-20 14:52] LABS: Potassium 4.3 mmoL/L (3.5-5.1); Sodium 137 mmol/L (136-145)
[2022-03-20 14:54] LABS: Alanine Aminotransferase 17 U/L (12-78); Albumin Level 3.6 g/dl (3.5-5.0); Albumin/Globulin Ratio 1.2 (1.1-1.8); Alkaline Phosphatase 99 U/L (38-126); Aspartate Amino Transferase 30 U/L (17-59); Bilirubin,Total 0.4 mg/dl (0.2-1.3); Blood Urea Nitrogen 7 mg/dl (9-20); Carbon Dioxide 32 mmol/L (22.0-30.0); Creatinine Clearance Estimated 61 mL/min (50-200); Estimated Glomerular Filt Rate 86 ml/min (>60); GFR (African American) 103 ML/MIN (>60); Globulin 2.9 g/dL (1.3-3.2); Total Protein,Serum 6.5 g/dl (6.3-8.2)
[2022-03-20 14:55] LABS: Calcium 9.2 mg/dl (8.4-10.2); Glucose 91 mg/dl (74-100)
[2022-03-20 14:56] LABS: Anion Gap 7.3 mEq/L (5-15)
[2022-03-20 14:57] LABS: Coronavirus 19, PCR Not Detected (NotDetected); Influenza A, PCR Not Detected (NotDetected); Influenza B, PCR Not Detected (NotDetected)
[2022-03-20 15:08] LABS: Troponin I < 0.01 ng/ml (0.00-0.034)
--- NOTE | 2022-03-20 17:10 | PC.NURSE ---
LAB NOTIFIED OF OF REPEAT TROP
--- NOTE | 2022-03-20 17:14 | PC.NURSE ---
LAB HERE FOR REPEAT TROP
[2022-03-20 18:20] LABS: Troponin I < 0.01 ng/ml (0.00-0.034)
== END 2022-03-20 18:58 | disposition home or self-care (01) ==
PROVIDERS: Emergency Provider Emergency Medicine
DX: R07.2 Precordial pain (principal); R06.02 Shortness of breath; R47.02 Dysphasia; Z20.822 Contact with and (suspected) exposure to COVID-19; E78.00 Pure hypercholesterolemia, unspecified; G89.29 Other chronic pain; G47.00 Insomnia, unspecified; M25.50 Pain in unspecified joint; J44.9 Chronic obstructive pulmonary disease, unspecified; F32.A Depression, unspecified; F41.9 Anxiety disorder, unspecified; F17.210 Nicotine dependence, cigarettes, uncomplicated; Z79.1 Long term (current) use of non-steroidal anti-inflammatories (NSAID); Z79.899 Other long term (current) drug therapy; Z79.51 Long term (current) use of inhaled steroids
CPT/HCPCS: 36415; 71045; 80053; 84484; 85025; 93005; 99284; C9803; U0003; U0005

== ENCOUNTER → 2022-04-03 14:27 | Outpatient (POV) | payer OTHER, SELFPAY ==
[2022-04-03 14:40] VITALS: BP 129/86; PULSE 116; RESP 20; BMI 18.4
--- NOTE | 2022-04-03 15:48 | A.OFFVIS_ITS ---
[facility] Pain Management SOAP Note Subjective:: Patient is a pleasant 61-year-old male who presents today for follow-up. We are currently treating the patient for osteoarthritis bilateral knees and degenerative disc disease of lumbar spine with lumbar radiculopathy symptoms. Patient denies any new trauma or injury. Patient denies any change location or type of pain he experiences. Patient is managed with gabapentin 600 mg 3 times a day and tramadol 50 mg 3 times a day. Patient denies any side effects from these medications. He states these medications do help improve his symptoms. Patient has just recently been sent refills on his medication. Patient has done injective therapy in the past that provided significant improvement including a genicular RFA. Patient's Cuauhtemoc is [id number]. It has been reviewed and appropriate. Review of Systems: General: No recent weight changes, no fever, no sleep disturbances Respiratory: No cough, no shortness of air, no recurring pulmonary infections Cardiovascular/peripheral vascular: No chest pain, no palpitations, no edema, no shortness of breath Gastrointestinal: No new onset incontinence, normal bowel movements reported Genitourinary: No new onset incontinence Musculoskeletal: Low back pain Psychiatric: [Normal mood/affect] Neurological: [Denies weakness in extremities], [denies balance issues] Objective:: Physical Exam: General: Alert and oriented x3, no acute distress, pleasant and cooperative Lungs: Respirations even and unlabored, symmetrical chest expansion Eyes: PERRL Musculoskeletal: Flexion and extension of lumbar [spine] somewhat guarded secondary to pain, [antalgic gait noted] Neurological: Speech clear, no gross sensory deficit Assessment:: Degenerative disc disease of lumbar spine with lumbar radiculopathy symptoms, osteoarthritis bilateral knees Plan:: Patient continues to have significant pain in his low back and knees however he is doing well with his current medication regimen. At this time the patient does not require additional refills. Patient will return to clinic in 1 month for reevaluation of symptoms, medication refill and follow-up. Patient has been instructed to contact the clinic with any concerns before the next appointment. Dr. Be has reviewed this note and agrees with this plan of care. This note was dictated using voice recognition software and make contain errors or omissions. [facility] Disclaimer: The information contained in this section may have been updated after the patient was seen, as this information can be updated by other users. Medical History (Updated 03/20/22 @ 18:35 by Latesha Price DO) Anxiety and depression Chronic pain COPD (chronic obstructive pulmonary disease) Dysphagia Heartburn Insomnia Polyarthralgia Social History Smoking Status: Current every day smoker tobacco type: cigarettes packs per day: 1 alcohol intake: never substance use type: former substance user current occupational status: other Travel in the last 8 weeks: None household members: family housing: house current occupational exposures/hazards: No caffeine: Yes
== END ==
PROVIDERS: PCP Emergency Medicine; Visit Provider Nurse Practitioner Family
DX: M51.16 Intervertebral disc disorders with radiculopathy, lumbar region (principal); M17.0 Bilateral primary osteoarthritis of knee; F17.210 Nicotine dependence, cigarettes, uncomplicated
CPT/HCPCS: 99212; G0463

== ENCOUNTER → 2022-05-09 10:46 | Outpatient (POV) | payer OTHER, SELFPAY ==
--- NOTE | 2022-05-09 11:02 | A.OFFVIS_ITS ---
[facility] Pain Management SOAP Note Subjective:: Patient is a pleasant 61-year-old male who presents today for medication refill and follow-up. We are currently treating the patient for degenerative disc disease of lumbar spine with lumbar radiculopathy symptoms, osteoarthritis bilateral knees. Today he rates his pain a 7 out of 10. Patient denies any new trauma or injury. Patient denies any change to location or type of pain he experiences. Patient does state that his pain is more in his low back and that his knees have done better here lately. Patient is currently managed with gabapentin 600 mg 3 times a day and tramadol 50 mg 3 times a day. Patient denies any side effects from this medication. He states this medication does help manage his pain symptoms. He is requesting refills at today's visit. His Cuauhtemoc is [id number]. Its been reviewed and appropriate. Review of Systems: General: No recent weight changes, no fever, no sleep disturbances Respiratory: No cough, no shortness of air, no recurring pulmonary infections Cardiovascular/peripheral vascular: No chest pain, no palpitations, no edema, no shortness of breath Gastrointestinal: No new onset incontinence, normal bowel movements reported Genitourinary: No new onset incontinence Musculoskeletal: Low back pain Psychiatric: [Normal mood/affect] Neurological: [Denies weakness in extremities], [denies balance issues] Objective:: Physical Exam: General: Alert and oriented x3, no acute distress, pleasant and cooperative Lungs: Respirations even and unlabored, symmetrical chest expansion Eyes: PERRL Musculoskeletal: Flexion and extension of lumbar [spine] somewhat guarded secondary to pain, [antalgic gait noted] Neurological: Speech clear, no gross sensory deficit ORT score updated with low risk Assessment:: Degenerative disc disease of lumbar spine with lumbar radiculopathy symptoms, osteoarthritis bilateral knees Plan:: Patient continues to experience significant pain in his low back however he is doing well with his current medication regimen. I will refill his gabapentin 600 mg 3 times a day and tramadol 50 mg 3 times a day and provide a 1 month supply of this medication. Patient will return to clinic in 1 month for reevaluation of symptoms, medication refill and follow-up. Patient has been advised of risks of oversedation with the prescribed medication. Narcan has been offered to the patient in the event of oversedation. Patient has been advised that a family member should also be educated regarding administration of Narcan. Patient has been instructed to contact the clinic with any concerns before the next appointment. Dr. Be has reviewed this note and agrees with this plan of care. This note was dictated using voice recognition software and make contain errors or omissions. [facility] Disclaimer: The information contained in this section may have been updated after the patient was seen, as this information can be updated by other users. Medical History (Updated 03/20/22 @ 18:35 by Laetsha Price DO) Anxiety and depression Chronic pain COPD (chronic obstructive pulmonary disease) Dysphagia Heartburn Insomnia Polyarthralgia Social History Smoking Status: Current every day smoker tobacco type: cigarettes packs per day: 1 alcohol intake: never substance use type: former substance user current occupational status: other Travel in the last 8 weeks: None household members: family housing: house current occupational exposures/hazards: No caffeine: Yes
[2022-05-09 12:11] VITALS: BP 128/82; PULSE 81; RESP 18; O2SAT 97; BMI 18.4
== END | disposition home or self-care (01) ==
PROVIDERS: PCP Emergency Medicine; Visit Provider Nurse Practitioner Family
DX: M51.16 Intervertebral disc disorders with radiculopathy, lumbar region (principal); M17.0 Bilateral primary osteoarthritis of knee
CPT/HCPCS: 99212; G0463

== ENCOUNTER → 2022-06-11 13:25 | Outpatient (POV) | payer OTHER, SELFPAY ==
--- NOTE | 2022-06-11 13:39 | A.OFFVIS_ITS ---
[facility] Pain Management SOAP Note Subjective:: Patient is a pleasant 61-year-old male who presents today for medication refill and follow-up. We are currently treating the patient for degenerative disc disease of lumbar spine with lumbar radiculopathy symptoms, osteoarthritis bilateral knees. Today the patient rates his pain a 7 out of 10. Patient denies any new trauma or injury. Patient denies any change to location or type of pain he experiences. Patient is currently managed with gabapentin 600 mg 3 times a day and tramadol 50 mg 3 times a day. Patient denies any side effects from these medications. He states these medications do help manage his pain symptoms. His Cuauhtemoc is [id number]. Its been reviewed and appropriate. Review of Systems: General: No recent weight changes, no fever, no sleep disturbances Respiratory: No cough, no shortness of air, no recurring pulmonary infections Cardiovascular/peripheral vascular: No chest pain, no palpitations, no edema, no shortness of breath Gastrointestinal: No new onset incontinence, normal bowel movements reported Genitourinary: No new onset incontinence Musculoskeletal: Low back pain Psychiatric: [Normal mood/affect] Neurological: [Denies weakness in extremities], [denies balance issues] Objective:: Physical Exam: General: Alert and oriented x3, no acute distress, pleasant and cooperative Lungs: Respirations even and unlabored, symmetrical chest expansion Eyes: PERRL Musculoskeletal: Flexion and extension of lumbar [spine] somewhat guarded secondary to pain, [antalgic gait noted] Neurological: Speech clear, no gross sensory deficit Assessment:: Degenerative disc disease of lumbar spine with lumbar radiculopathy symptoms, osteoarthritis bilateral knees Plan:: Patient continues to experience significant pain in his low back however he is doing well with his current medication regimen. I will refill his gabapentin 600 mg 3 times a day and tramadol 50 mg 3 times a day and provide a 1 month supply of this medication. Patient will return to clinic in 1 month for reevaluation of symptoms, medication refill and follow-up. Patient has been instructed to contact the clinic with any concerns before the next appointment. Dr. Be has reviewed this note and agrees with this plan of care. This note was dictated using voice recognition software and make contain errors or omissions. [facility] Disclaimer: The information contained in this section may have been updated after the patient was seen, as this information can be updated by other users. Medical History (Updated 03/20/22 @ 18:35 by Latesha Price DO) Anxiety and depression Chronic pain COPD (chronic obstructive pulmonary disease) Dysphagia Heartburn Insomnia Polyarthralgia Social History Smoking Status: Current every day smoker tobacco type: cigarettes packs per day: 1 alcohol intake: never substance use type: former substance user current occupational status: retired Travel in the last 8 weeks: None household members: family housing: house current occupational exposures/hazards: No caffeine: Yes
[2022-06-11 14:25] VITALS: BP 120/72; PULSE 111; RESP 18; O2SAT 98; BMI 18.4
== END | disposition home or self-care (01) ==
PROVIDERS: PCP Emergency Medicine; Visit Provider Nurse Practitioner Family
DX: M51.16 Intervertebral disc disorders with radiculopathy, lumbar region (principal); M17.0 Bilateral primary osteoarthritis of knee; Z79.899 Other long term (current) drug therapy
CPT/HCPCS: 99212; G0463

== ENCOUNTER → 2022-08-22 10:24 | Outpatient (CLI) | payer OTHER, SELFPAY ==
--- NOTE | 2022-08-22 10:28 | XR_ITS ---
FINAL REPORT CLINICAL HISTORY: pain in right hip COMPARISON: 05/04/2020 FINDINGS: Right hip Three views were obtained. There is no acute fracture or dislocation. The joint spaces appear normal. No soft tissue abnormality is identified. IMPRESSION: No acute process. Reviewed, Interpreted and Dictated by Mark Robison MD Transcribed by Joi Graf Authenticated and [facility]
== END ==
PROVIDERS: PCP Emergency Medicine; Visit Provider Nurse Practitioner Family
DX: M25.551 Pain in right hip (principal)
CPT/HCPCS: 73502

== ENCOUNTER → 2022-08-23 09:29 | Outpatient (POV) | payer OTHER, SELFPAY ==
--- NOTE | 2022-08-23 10:24 | EXP.PAIN.SOA ---
[facility] Pain Management SOAP Note Subjective:: Patient is a pleasant 61-year-old male who presents today for medication refill and follow-up. We are currently treating the patient for degenerative disc disease of lumbar spine with lumbar radiculopathy symptoms, osteoarthritis bilateral knees. Today he rates his pain a 10 out of 10. He states his pain is all in his low back with radiating symptoms into his right hip and right leg down to his foot. Patient denies any new trauma or injury. Patient denies any change to location or type of pain he experiences. Patient is currently managed with gabapentin 600 mg 3 times a day and tramadol 50 mg 3 times a day. Patient denies any side effects from these medications however he states these medications are not touching his pain symptoms. He does describe his pain as an aching, throbbing sensation that is worse with increased activity. It does interfere with his ability to perform activities of daily living such as cooking and cleaning. He states that he continues to use additional [id number] medications along with a heating pad and topicals with no additional relief. His Cuauhtemoc is [id number]. Its been reviewed and appropriate. Review of Systems: General: No recent weight changes, no fever, no sleep disturbances Respiratory: No cough, no shortness of air, no recurring pulmonary infections Cardiovascular/peripheral vascular: No chest pain, no palpitations, no edema, no shortness of breath Gastrointestinal: No new onset incontinence, normal bowel movements reported Genitourinary: No new onset incontinence Musculoskeletal: Low back pain Psychiatric: [Normal mood/affect] Neurological: [Denies weakness in extremities], [denies balance issues] Objective:: Physical Exam: General: Alert and oriented x3, no acute distress, pleasant and cooperative Lungs: Respirations even and unlabored, symmetrical chest expansion Eyes: PERRL Musculoskeletal: Flexion and extension of lumbar [spine] somewhat guarded secondary to pain, [antalgic gait noted] Neurological: Speech clear, no gross sensory deficit Assessment:: Degenerative disc disease of lumbar spine with lumbar radiculopathy symptoms, osteoarthritis bilateral knees Plan:: Patient is experiencing significant pain in his low back and legs with limited range of motion. I will order a lumbar x-ray with the plan to proceed forward with more advanced imaging such as an MRI in the future. I will refill his gabapentin 600 mg 3 times a day and tramadol 50 mg 3 times a day and provide a 2-month supply of this medication. I have discussed with the patient in the future that he may benefit from a right transforaminal epidural steroid injection. Risk and benefits were discussed with the patient however at this time he would like to do imaging first. Patient will return to clinic in 1 month for reevaluation of symptoms and plan of care. Patient has been instructed to contact the clinic with any concerns before the next appointment. Dr. Be has reviewed this note and agrees with this plan of care. This note was dictated using voice recognition software and make contain errors or omissions. [facility] Disclaimer: The information contained in this section may have been updated after the patient was seen, as this information can be updated by other users. Medical History (Updated 08/21/22 @ 15:10 by Rima Martin APRN) Anxiety and depression Chronic pain COPD (chronic obstructive pulmonary disease) COPD (chronic obstructive pulmonary disease) Dysphagia Dyspnea on exertion Encounter for screening for malignant neoplasm of lung in former smoker who quit in past 15 years with 30 pack year history or greater Heartburn Insomnia Polyarthralgia Pulmonary emphysema Smoking greater than 30 pack years Tobacco abuse counseling Tobacco abuse disorder Surgical History (Updated 08/02/22 @ 09:21 by RT Alfredo) History of carpal tunnel release History of total hip replaceme
--- NOTE | 2022-08-23 10:33 | XR_ITS ---
FINAL REPORT CLINICAL HISTORY: LOW BACK PAIN COMPARISON: 04/14/2020 FINDINGS: LUMBOSACRAL SPINE SERIES Five views of the lumbosacral spine were obtained. There is no fracture present. There is no malalignment. Mild anterior osteophyte formation at L2-3, L3-4, and L4-5. IMPRESSION: No acute bony abnormality. Reviewed, Interpreted and Dictated by Mark Robison MD Transcribed by Daxa Tian Authenticated and [facility]
[2022-08-23 11:16] VITALS: BP 134/84; PULSE 116; RESP 20; BMI 18.5
== END | disposition home or self-care (01) ==
PROVIDERS: PCP Emergency Medicine; Visit Provider Nurse Practitioner Family
DX: M51.16 Intervertebral disc disorders with radiculopathy, lumbar region (principal); M17.0 Bilateral primary osteoarthritis of knee
CPT/HCPCS: 72110; 99212; G0463

== ENCOUNTER → 2022-08-23 10:22 | Outpatient (CLI) | payer OTHER, SELFPAY ==
[2022-08-23 14:03] LABS: Amphetamine/Metha Screen,Urine Negative ng/ml (<1000); Barbiturates Screen,Urine Negative ng/ml (<200)
[2022-08-23 14:04] LABS: Benzodiazepines Screen,Urine Negative ng/ml (<200)
[2022-08-23 14:07] LABS: Cannabinoid Screen,Urine Negative ng/ml (<50); Cocaine Screen,Urine Negative ng/ml (<300)
[2022-08-23 14:08] LABS: Methadone Screen,Urine Negative ng/ml (<300)
[2022-08-23 14:09] LABS: Opiate Screen,Urine Negative ng/ml (<300); Phencyclidine Screen,Urine Negative ng/ml (<25)
[2022-08-31 12:30] LABS: Opiates Negative (Cutoff=100)
== END ==
PROVIDERS: PCP Emergency Medicine; Visit Provider Nurse Practitioner Family
DX: M54.50 Low back pain, unspecified (principal); Z79.891 Long term (current) use of opiate analgesic
CPT/HCPCS: 80305; 80361; 80365; G0480

== ENCOUNTER → 2022-08-24 14:10 | Outpatient (CLI) | payer OTHER, SELFPAY ==
--- NOTE | 2022-08-24 14:10 | CT_ITS ---
FINAL REPORT TECHNIQUE: Axial CT images of the chest were obtained without contrast. Low-dose protocol was utilized. This study was performed with techniques to keep radiation doses as low as reasonably achievable (ALARA). Individualized dose reduction techniques using automated exposure control or adjustment of mA and/or kV according to the patient's size were employed. CLINICAL HISTORY: lung cancer screening SMOKER, 1 PK PER DAY X 50 YRS COMPARISON: 07/24/2021 FINDINGS: CT CHEST WITHOUT, LOW DOSE SCREENING CT Di Vol: 2.90 mGy DLP: 119.59 mGy*cm There is no axillary, mediastinal, or hilar adenopathy. No evidence of mediastinal mass. The heart size is normal. There is no pleural or pericardial effusion. The lung windows show a tiny nodule in the periphery of the right lower lobe image 52 of series 4. No new nodules identified. There are a few scattered calcified granulomas bilaterally. Limited images of the upper abdomen are unremarkable. IMPRESSION: Stable pulmonary nodules with no new nodule identified. LR Category 1: 12 month follow-up low-dose chest CT is recommended. Reviewed, Interpreted and Dictated by Mark Robison MD Transcribed by Daxa Tian Authenticated and [facility]
== END ==
PROVIDERS: PCP Emergency Medicine; Visit Provider Internal Medicine Pulmonary Disease
DX: Z87.891 Personal history of nicotine dependence (principal); Z12.2 Encounter for screening for malignant neoplasm of respiratory organs
CPT/HCPCS: 71271

== ENCOUNTER 2022-08-30 00:37 | Emergency (ER) | payer OTHER, SELFPAY ==
[2022-08-30 00:38] VITALS: BP 135/77; PULSE 114; RESP 16; TEMP 36.9; O2SAT 97; BMI 18.8
--- NOTE | 2022-08-30 01:03 | HMH.EDGENADL ---
Discharge Plan Disposition Patient Disposition: Home, Self-Care Prescriptions Prescriptions: No Action ipratropium-albuterol 0.5 mg-3 mg(2.5 mg base)/3 mL solution for nebulization 3 ml IH QID PRN (Reason: shortness of breath or wheezing) 90 Days Qty: 270 3RF naproxen 500 mg tablet 500 mg PO BID Qty: 30 0RF Anoro Ellipta 62.5-25 mcg/actuation blister with device 1 inh inhalation DAILY 90 Days Qty: 180 3RF albuterol sulfate 90 mcg/actuation HFA aerosol inhaler 2 inh IH Q6H PRN (Reason: shortness of breath or wheezing) 90 Days Qty: 8.5 3RF prednisone 20 mg tablet 20 mg PO BID 5 Days Qty: 10 0RF hydroxyzine HCl 10 mg tablet See Rx Instructions .ROUTE .COMPLEX Qty: 90 0RF Dose Instruction: TAKE ONE TABLET BY MOUTH 3 TIMES A DAY NEEDED FOR ANXIETY Rx Instructions: TAKE ONE TABLET BY MOUTH 3 TIMES A DAY NEEDED FOR ANXIETY cholecalciferol (vitamin D3) 25 mcg (1,000 unit) tablet See Rx Instructions .ROUTE .COMPLEX Qty: 30 0RF Dose Instruction: TAKE ONE TABLET BY MOUTH ONCE A DAY Rx Instructions: TAKE ONE TABLET BY MOUTH ONCE A DAY terbinafine HCl 15 GM cream 1 applic TP BID duloxetine 30 mg capsule,delayed release(DR/EC) See Rx Instructions .ROUTE .COMPLEX Rx Instructions: TAKE ONE CAPSULE BY MOUTH ONCE A DAY FOR DEPRESSION ipratropium-albuterol 3 ML solution for nebulization See Rx Instructions .Route .COMPLEX Rx Instructions: INHALE CONTENTS OF 1 VIAL VIA NEBULIZER FOUR TIMES A DAY NEEDED FOR SHORTNESS OF BREATH OR WHEEZING umeclidinium-vilanterol 1 EACH blister with device 1 inh IH DAILY atorvastatin 10 mg tablet See Rx Instructions .ROUTE .COMPLEX Rx Instructions: TAKE ONE TABLET BY MOUTH ONCE A DAY FOR CHOLESTEROL ibuprofen 600 mg tablet 600 mg PO Q8H PRN (Reason: pain) Qty: 30 0RF famotidine 40 mg tablet See Rx Instructions .ROUTE .COMPLEX Rx Instructions: TAKE ONE TABLET BY MOUTH ONCE A DAY FOR GERD loratadine 10 mg tablet See Rx Instructions .ROUTE .COMPLEX Rx Instructions: TAKE ONE TABLET BY MOUTH ONCE A DAY FOR ALLERGIES gabapentin 600 mg tablet 600 mg PO TID Qty: 90 0RF tramadol 50 mg tablet 50 mg PO TID Qty: 90 0RF Referrals Follow up/Referrals: Nathan Guerra MD [Primary Care Provider] - See instructions Clinical Impressions Clinical Impression: Lumbar radiculopathy Instructions Patient Instructions: DI for Lumbar Radiculopathy Discharge ED Provider: Mari (ED)Nathan General Adult HPI General Chief complaint: PAIN Stated complaint: right hip pain radiating down right leg Time Seen by Provider: 08/30/22 01:04 Mode of Arrival: Ambulatory Source of Information: Patient and Medical Record Limitations: No Limitations Description of Symptoms (Recalled from ER Triage Doc. by RN): Pt arrives with c/o right hip pain that radiates to his foot, pt describes pain as a burning sensation. Pt stated this pain started yesterday. Pt has been seen and dx w sciatic pain, in which he was treated w steroids, but he finished that prescription Saturday. History of Present Illness HPI narrative: pt with ongoing rt hip and back pain with rad to rt lower leg - has seen pcp and dr sandoval - recently finished steroids - no fever/rash or trauma and no cauda equina sx - pt on tramadol and neurotin Onset (ago): day(s) Location: back Radiation: extremity Severity: moderate Quality: burning Consistency: constant Associated symptoms: denies other symptoms Treatments prior to arrival: other Related Data Home Medications Medication Instructions Recorded Confirmed terbinafine HCl 1 % topical cream 1 applic topical BID . 02/03/21 08/29/22 ipratropium 0.5 mg-albuterol 3 mg See Rx Instructions .Route 06/16/21 08/29/22 (2.5 mg base)/3 mL nebulization .COMPLEX Asthma soln umeclidinium 62.5 mcg-vilanterol 1 inh inhalation DAILY Breathing 08/17/21 08/29/22 2
[2022-08-30 01:33] VITALS: BP 113/76; PULSE 74; RESP 16; TEMP 36.6; O2SAT 92
== END 2022-08-30 01:34 | disposition home or self-care (01) ==
PROVIDERS: Emergency Provider Emergency Medicine; PCP Emergency Medicine
DX: M54.16 Radiculopathy, lumbar region (principal); M54.41 Lumbago with sciatica, right side; F17.210 Nicotine dependence, cigarettes, uncomplicated
CPT/HCPCS: 96372; 99283; 99284

== ENCOUNTER → 2022-09-11 14:23 | Outpatient (CLI) | payer OTHER, SELFPAY ==
--- NOTE | 2022-09-11 14:23 | MR_ITS ---
FINAL REPORT CLINICAL HISTORY: Increasing pain pain down right leg burning sensation x 3 weeks FINDINGS: Multiplanar MR imaging of the lumbar spine was performed without contrast. On the sagittal T2-weighted images, disc degeneration is seen at multiple levels. There are mild endplate changes at multiple levels. There is a hemangioma in the L3 vertebral body. The vertebral alignment is normal. There is no evidence of fracture. The conus has an unremarkable appearance. L1-2: An annular bulge is present. There is no significant canal stenosis or neural foraminal narrowing. L2-3: An annular bulge is present. There is a right foraminal disc protrusion with mild bilateral neural foraminal narrowing. L3-4: An annular bulge is present. There is no significant canal stenosis or neural foraminal narrowing. L4-5: An annular bulge is present. There is no significant canal stenosis or neural foraminal narrowing. L5-S1: An annular bulge and anterior osteophytes are present. There is right foraminal focal soft tissue measuring 7 mm most worrisome for sequestered disc fragment. There is right L5 nerve root impingement. There is moderate right and mild left neural foraminal narrowing. IMPRESSION: Focal soft tissue at L5-S1 most worrisome for sequestered disc fragment with right L5 nerve root impingement. Right foraminal disc protrusion L2-3. Multilevel degenerative disc disease. Reviewed, Interpreted and Dictated by Antonio Rees III, MD Transcribed by Joi Graf Authenticated and [facility]
--- NOTE | 2022-09-11 14:23 | MR_ITS ---
FINAL REPORT CLINICAL HISTORY: Increasing Low Back/R Hip pain FINDINGS: Multiplanar MR images of the pelvis were performed without contrast. There is no fracture, bone bruising or marrow edema. Incidental note is made of abnormal signal in the superior left femoral head measuring 30 mm consistent with avascular necrosis. No significant joint effusion is seen. The musculature is intact. The tendons are intact. There is no soft tissue mass or cyst identified. IMPRESSION: Avascular necrosis of the left femoral head. Reviewed, Interpreted and Dictated by Antonio Rees III, MD Transcribed by Joi Graf Authenticated and . [facility]
== END ==
PROVIDERS: PCP Nurse Practitioner Family; Visit Provider Nurse Practitioner Family
DX: M54.50 Low back pain, unspecified (principal); M47.816 Spondylosis without myelopathy or radiculopathy, lumbar region; M54.16 Radiculopathy, lumbar region; M25.551 Pain in right hip
CPT/HCPCS: 72148; 72195; 76376

== ENCOUNTER → 2022-09-24 13:44 | Outpatient (POV) | payer OTHER, SELFPAY ==
--- NOTE | 2022-09-24 13:57 | EXP.PAIN.SOA ---
[facility] Pain Management SOAP Note Subjective:: Patient is a pleasant 61-year-old male who presents today for medication refill and MRI follow-up. We are currently treating the patient for degenerative disc disease of the lumbar spine with lumbar radiculopathy symptoms, osteoarthritis. Today he rates his pain a 7 out of 10. Patient denies any new trauma or injury. Patient denies any change location or type of pain he experiences. He does state he continues to have pain in his low back as well as his right hip and down his right leg. He does describe this as an aching, throbbing sensation that is worse with increased activity however he states the last 2 weeks have been much better with decreased pain. He is currently managed with gabapentin 600 mg 3 times a day and tramadol 50 mg 3 times a day. Patient denies any side effects from this medication. He states he is scheduled to see Dr. Stockton on October 05. He has Cuauhtemoc is [id number]. Its been reviewed and appropriate. Review of Systems: General: No recent weight changes, no fever, no sleep disturbances Respiratory: No cough, no shortness of air, no recurring pulmonary infections Cardiovascular/peripheral vascular: No chest pain, no palpitations, no edema, no shortness of breath Gastrointestinal: No new onset incontinence, normal bowel movements reported Genitourinary: No new onset incontinence Musculoskeletal: Low back pain Psychiatric: [Normal mood/affect] Neurological: [Denies weakness in extremities], [denies balance issues] Objective:: Physical Exam: General: Alert and oriented x3, no acute distress, pleasant and cooperative Lungs: Respirations even and unlabored, symmetrical chest expansion Eyes: PERRL Musculoskeletal: Flexion and extension of lumbar [spine] somewhat guarded secondary to pain, [antalgic gait noted] Neurological: Speech clear, no gross sensory deficit FINAL REPORT CLINICAL HISTORY: Increasing Low Back/R Hip pain FINDINGS: Multiplanar MR images of the pelvis were performed without contrast. ? There is no fracture, bone bruising or marrow edema. Incidental note is made of abnormal signal in the superior left femoral head measuring 30 mm consistent with avascular necrosis. No significant joint effusion is seen.? The musculature is intact.? The tendons are intact.? There is no soft tissue mass or cyst identified. IMPRESSION: Avascular necrosis of the left femoral head. Reviewed, Interpreted and Dictated by Antonio Rees III, MD Transcribed by Joi Lesia Authenticated and [facility] FINAL REPORT CLINICAL HISTORY: Increasing pain? pain down right leg ? burning sensation x 3 weeks FINDINGS: Multiplanar MR imaging of the lumbar spine was performed without contrast. On the sagittal T2-weighted images, disc degeneration is seen at multiple levels.? There are mild endplate changes at multiple levels.? There is a hemangioma in the L3 vertebral body. ? The vertebral alignment is normal.? There is no evidence of fracture.? The conus has an unremarkable appearance.? L1-2: An annular bulge is present.? There is no significant canal stenosis or neural foraminal narrowing.? L2-3:? An annular bulge is present.? There is a right foraminal disc protrusion with mild bilateral neural foraminal narrowing.? L3-4:? An annular bulge is present.? There is no significant canal stenosis or neural foraminal narrowing.? L4-5:? An annular bulge is present. There is no significant canal stenosis or neural foraminal narrowing.? L5-S1:? An annular bulge and anterior osteophytes are present.? There is right foraminal focal soft tissue measuring 7 mm most worrisome for sequestered disc fragment. There is right L5 nerve root impingement.? There is moderate right and mild left neural foraminal narrowing. IMPRESSION: Focal soft tissue at L5-S1 most worrisome for sequestered disc fragment with right L5 nerve root imp
[2022-09-24 14:19] VITALS: BP 119/78; PULSE 107; RESP 19; O2SAT 97; BMI 19.2
== END | disposition home or self-care (01) ==
PROVIDERS: PCP Emergency Medicine; Visit Provider Nurse Practitioner Family
DX: M51.16 Intervertebral disc disorders with radiculopathy, lumbar region (principal); M19.90 Unspecified osteoarthritis, unspecified site
CPT/HCPCS: 99212; G0463

== ENCOUNTER → 2022-10-25 13:24 | Outpatient (POV) | payer OTHER, SELFPAY ==
--- NOTE | 2022-10-25 13:43 | EXP.PAIN.SOA ---
[facility] Pain Management SOAP Note Subjective:: Patient is a pleasant 61-year-old male who presents today for medication refill and follow-up. We are currently treating the patient for degenerative disc disease of lumbar spine with lumbar radiculopathy symptoms, bilateral hip pain/osteoarthritis. Today he rates his pain a 6 out of 10. He does state that he has right hip pain has mostly resolved now and that Dr. Martinez is not recommending any surgical intervention at this time. Patient does deny any new trauma or injury or change to location or type of pain he experiences. Patient is currently managed on gabapentin 600 mg 3 times a day and tramadol 50 mg 3 times a day. Patient denies any side effects from this medication. His Cuauhtemoc is [id number]. Its been reviewed and appropriate. Review of Systems: General: No recent weight changes, no fever, no sleep disturbances Respiratory: No cough, no shortness of air, no recurring pulmonary infections Cardiovascular/peripheral vascular: No chest pain, no palpitations, no edema, no shortness of breath Gastrointestinal: No new onset incontinence, normal bowel movements reported Genitourinary: No new onset incontinence Musculoskeletal: Low back pain Psychiatric: [Normal mood/affect] Neurological: [Denies weakness in extremities], [denies balance issues] Objective:: Physical Exam: General: Alert and oriented x3, no acute distress, pleasant and cooperative Lungs: Respirations even and unlabored, symmetrical chest expansion Eyes: PERRL Musculoskeletal: Flexion and extension of lumbar [spine] somewhat guarded secondary to pain, [antalgic gait noted] Neurological: Speech clear, no gross sensory deficit Assessment:: Degenerative disc disease of lumbar spine with lumbar radiculopathy symptoms, bilateral hip pain/osteoarthritis Plan:: I will refill the patient's gabapentin 600 mg 3 times a day and tramadol 50 mg 3 times a day and provide a 1 month supply of this medication. Patient will return to clinic in 1 month for reevaluation of symptoms, medication refill and plan of care. Patient has been advised of risks of oversedation with the prescribed medication. Narcan has been offered to the patient in the event of oversedation. Patient has been advised that a family member should also be educated regarding administration of Narcan. Patient has been instructed to contact the clinic with any concerns before the next appointment. Dr. Be has reviewed this note and agrees with this plan of care. This note was dictated using voice recognition software and make contain errors or omissions. [facility] Disclaimer: The information contained in this section may have been updated after the patient was seen, as this information can be updated by other users. Medical History Anxiety and depression Chronic pain COPD (chronic obstructive pulmonary disease) COPD (chronic obstructive pulmonary disease) Dysphagia Dyspnea on exertion Encounter for screening for malignant neoplasm of lung in former smoker who quit in past 15 years with 30 pack year history or greater Heartburn Insomnia Polyarthralgia Pulmonary emphysema Smoking greater than 30 pack years Tobacco abuse counseling Tobacco abuse disorder Surgical History History of carpal tunnel release History of total hip replacement Family History Other No significant family history Social History Smoking Status: Current every day smoker tobacco type: cigarettes packs per day: 1 alcohol intake: never substance use type: former substance user current occupational status: other Travel in the last 8 weeks: None household members: family housing: house current occupational exposures/hazards: No caffeine: Yes
[2022-10-25 15:44] VITALS: BP 130/84; PULSE 116; RESP 19; O2SAT 96; BMI 18.9
== END | disposition home or self-care (01) ==
PROVIDERS: PCP Emergency Medicine; Visit Provider Nurse Practitioner Family
DX: M51.16 Intervertebral disc disorders with radiculopathy, lumbar region (principal); M16.0 Bilateral primary osteoarthritis of hip; M25.551 Pain in right hip; M25.552 Pain in left hip
CPT/HCPCS: 99212; G0463

== ENCOUNTER → 2022-11-22 14:36 | Outpatient (POV) | payer OTHER, SELFPAY ==
--- NOTE | 2022-11-22 14:48 | EXP.PAIN.SOA ---
[facility] Pain Management SOAP Note Subjective:: Patient is a pleasant 61-year-old male who presents today for 1 month follow-up and medication refill. We are currently treating the patient for degenerative disc disease of lumbar spine with lumbar radiculopathy symptoms, bilateral hip pain/osteoarthritis. Today he rates his pain a 5 out of 10. Patient denies any new trauma or injury or any change to location or type of pain he experiences. Patient does state that he believes a lot of his pain is related to his SI joint and he has gotten injections in the past that did provide improvement. Patient states that he has recently had an injection and is doing better today. He is currently managed on gabapentin 600 mg 3 times a day and tramadol 50 mg 3 times a day. He denies any side effects from this medication. His Cuauhtemoc is [id number]. Its been reviewed and appropriate Review of Systems: General: No recent weight changes, no fever, no sleep disturbances Respiratory: No cough, no shortness of air, no recurring pulmonary infections Cardiovascular/peripheral vascular: No chest pain, no palpitations, no edema, no shortness of breath Gastrointestinal: No new onset incontinence, normal bowel movements reported Genitourinary: No new onset incontinence Musculoskeletal: Low back pain left groin pain Psychiatric: [Normal mood/affect] Neurological: [Denies weakness in extremities], [denies balance issues] Objective:: Physical Exam: General: Alert and oriented x3, no acute distress, pleasant and cooperative Lungs: Respirations even and unlabored, symmetrical chest expansion Eyes: PERRL Musculoskeletal: Flexion and extension of lumbar [spine] somewhat guarded secondary to pain, [antalgic gait noted] Neurological: Speech clear, no gross sensory deficit Assessment:: Degenerative disc disease of lumbar spine with lumbar radiculopathy symptoms, bilateral hip pain/osteoarthritis Plan:: Patient is doing well with his current medication regimen. I will refill his tramadol 50 mg 3 times a day and gabapentin 600 mg 3 times a day and provide a 2-month supply of this medication. Patient will return to clinic in 2 months for reevaluation of symptoms, medication refill and follow-up. Patient has been instructed to contact the clinic with any concerns before the next appointment. Dr. Be has reviewed this note and agrees with this plan of care. This note was dictated using voice recognition software and make contain errors or omissions. [facility] Disclaimer: The information contained in this section may have been updated after the patient was seen, as this information can be updated by other users. Medical History Anxiety and depression Chronic pain COPD (chronic obstructive pulmonary disease) COPD (chronic obstructive pulmonary disease) Dysphagia Dyspnea on exertion Encounter for screening for malignant neoplasm of lung in former smoker who quit in past 15 years with 30 pack year history or greater Heartburn Insomnia Polyarthralgia Pulmonary emphysema Smoking greater than 30 pack years Tobacco abuse counseling Tobacco abuse disorder Surgical History History of carpal tunnel release History of total hip replacement Family History Other No significant family history Social History Smoking Status: Current every day smoker tobacco type: cigarettes packs per day: 1 alcohol intake: never substance use type: former substance user current occupational status: other Travel in the last 8 weeks: None household members: family housing: house current occupational exposures/hazards: No caffeine: Yes
[2022-11-22 15:34] VITALS: BP 115/73; PULSE 101; RESP 18; O2SAT 99; BMI 19.0
== END | disposition home or self-care (01) ==
PROVIDERS: Visit Provider Nurse Practitioner Family
DX: M51.16 Intervertebral disc disorders with radiculopathy, lumbar region (principal); M16.0 Bilateral primary osteoarthritis of hip; M25.551 Pain in right hip; M25.552 Pain in left hip
CPT/HCPCS: 99212; G0463

== ENCOUNTER → 2023-01-21 10:57 | Outpatient (CLI) | payer OTHER, SELFPAY ==
--- NOTE | 2023-01-21 11:00 | XR_ITS ---
FINAL REPORT CLINICAL HISTORY: SOA COMPARISON: 03/20/2022 FINDINGS: Two views of the chest were obtained. The heart size and pulmonary vascularity are within normal limits. There is hyperinflation present compatible with chronic obstructive pulmonary disease. The mediastinum is normal. No acute pulmonary abnormality is identified. There is no pneumothorax. The bony thorax is intact. IMPRESSION: No active cardiopulmonary disease. Hyperinflation compatible with chronic obstructive pulmonary disease. Reviewed, Interpreted and Dictated by Antonio Rees III, MD Transcribed by Gwendolyn Guillen Authenticated and [facility]
== END ==
PROVIDERS: PCP Nurse Practitioner Family; Visit Provider Nurse Practitioner Family
DX: R06.02 Shortness of breath (principal)
CPT/HCPCS: 71046

== ENCOUNTER → 2023-02-15 14:16 | Outpatient (POV) | payer OTHER, SELFPAY ==
[2023-02-15 14:26] VITALS: BP 146/88; PULSE 119; RESP 18; O2SAT 95; BMI 19.2
--- NOTE | 2023-02-15 14:43 | A.OFFVIS_ITS ---
[facility] Pain Management SOAP Note Subjective:: This patient is a very pleasant 62-year-old male that comes our clinic today for medication refills. We currently are treating the patient for chronic low back pain as well as bilateral hip and leg radicular symptoms at times. Bilateral hip osteoarthritis. Bilateral sacroiliitis. Patient rates his pain today 4/10. We are managing him with gabapentin 600 mg 1 p.o. 3 times daily. Tramadol 50 mg 1 p.o. 3 times daily. He reports decreasing pain by 50% when taking the medication. Patient's Cuauhtemoc #[id number] has been reviewed and appropriate. Discussed in detail with the patient regarding injective therapy for low back pain as well as bilateral hip and leg pain. Patient not interested in injective intervention at this time Objective:: Patient is awake alert Hammond x3. In no acute distress. Flexion-extension lumbar spine somewhat guarded secondary to pain. Deep tendon reflexes upper lower extremities normal. There is no gross sensory deficit. Gait is normal. Assessment:: Degenerative disc lumbar spine multilevels. Lumbar radiculopathy. DJD bilateral hips. Bilateral sacroiliitis. Plan:: We will refill the patient's pain medication. Gabapentin 600 mg 1 p.o. 3 times daily. Tramadol 50 mg 1 p.o. 3 times daily. I will give a refill for each medication. He will return to see us in 2 months. [facility] Disclaimer: The information contained in this section may have been updated after the patient was seen, as this information can be updated by other users. Medical History Anxiety and depression Chronic pain COPD (chronic obstructive pulmonary disease) COPD (chronic obstructive pulmonary disease) Dysphagia Dyspnea on exertion Encounter for screening for malignant neoplasm of lung in former smoker who quit in past 15 years with 30 pack year history or greater Heartburn Insomnia Polyarthralgia Pulmonary emphysema Smoking greater than 30 pack years Tobacco abuse counseling Tobacco abuse disorder Surgical History History of carpal tunnel release History of total hip replacement Family History Other No significant family history Social History Smoking Status: Current every day smoker tobacco type: cigarettes packs per day: 1 alcohol intake: never substance use type: former substance user current occupational status: other Travel in the last 8 weeks: None household members: family housing: house current occupational exposures/hazards: No caffeine: Yes
== END | disposition home or self-care (01) ==
PROVIDERS: PCP Nurse Anesthetist, Certified Registered; Visit Provider Nurse Anesthetist, Certified Registered
DX: M51.16 Intervertebral disc disorders with radiculopathy, lumbar region (principal); M16.0 Bilateral primary osteoarthritis of hip; M46.1 Sacroiliitis, not elsewhere classified
CPT/HCPCS: 99212; G0463

== ENCOUNTER 2023-02-25 13:52 | Inpatient (IN) | payer MEDICARE, OTHER, SELFPAY ==
[2023-02-25] VITALS (16 sets, daily range): BP systolic 86–116; BP diastolic 56–81; PULSE 102–128; RESP 15–25; TEMP 36.7–36.8; O2SAT 92–100; BMI 18.4; BMI 18.3
--- NOTE | 2023-02-25 13:49 | ECG_ITS ---
APPROVED REPORT Exam: Resting ECG HR:128 bpm ECG Measurements Heart Rate 128 AXES NC 130 P 66 QRSd 85 QRS 74 QT 296 T 50 QTc 372 Conclusion SINUS TACHYCARDIA INDETERMINATE AXIS POSSIBLE RIGHT VENTRICULAR CONDUCTION DELAY [RSR (QR) IN V1/V2] ABNORMAL RHYTHM ECG UNCONFIRMED REPORT Electronically signed by : Darvin Dempsey MD 02/25/2023 17:47:22
--- NOTE | 2023-02-25 14:06 | XR_ITS ---
FINAL REPORT TECHNIQUE: Single view chest CLINICAL HISTORY: chest pain smoker x 50 yrs COMPARISON: 01/21/2023 FINDINGS: A single view of the chest was obtained. The heart and mediastinum are within normal limits. The lungs are clear. There is no pneumothorax. Osseous structures are unremarkable. IMPRESSION: No acute cardiopulmonary process. Reviewed, Interpreted and Dictated by Verenice Hutton MD Transcribed by Niru Webb Authenticated and [facility]
[2023-02-25 14:18] LABS: Basophils % 0.5 % (0.1-2.0); Eosinophils # 0.1 K/mm3 (0.0-0.4); Hematocrit 52.8 % (42.0-52.0); Hemoglobin 17.6 g/dL (14.1-18.0); Lymphocytes # 1.4 K/mm3 (0.7-4.5); Lymphocytes % 15.6 % (10-50); Mean Corpuscular HGB Conc 33.3 g/dL (31.8-35.4); Mean Corpuscular Hemoglobin 31.3 pg (27.0-31.2); Mean Platelet Volume 8.5 fl (7.4-10.4); Monocytes # 0.6 K/mm3 (0.1-1.0); Monocytes % 7.1 % (1.7-9.3); Neutrophils # 6.6 K/mm3 (1.8-7.8); Neutrophils % 75.8 % (37.0-80.0); Platelet Count 229 K/mm3 (142-424); Red Blood Count 5.62 M/mm3 (4.60-6.20); Red Cell Distribution Width 14.2 % (11.5-17.5); White Blood Count 8.7 K/mm3 (4.8-10.8)
--- NOTE | 2023-02-25 14:23 | CT_ITS ---
FINAL REPORT TECHNIQUE: Then section axial CT images of the chest were obtained with contrast. Three-D reformatted images were also obtained.This study was performed with techniques to keep radiation doses as low as reasonably achievable (ALARA). Individualized dose reduction techniques using automated exposure control or adjustment of mA and/or kV according to the patient''s size were employed. CLINICAL HISTORY: HR 130, recent cough, COPD FINDINGS: Multiple bilateral pulmonary emboli are seen. Emboli are seen involving the bilateral upper lobe and lower lobe pulmonary arterial branches and the distal main right and left pulmonary arteries. The overall clot burden is moderate to large. There findings of right heart strain with enlargement of the right ventricle and bowing of the interventricular septum. There is no evidence of thoracic aortic aneurysm or dissection. There is no evidence of mediastinal or hilar mass or adenopathy. There is no evidence of pulmonary mass or suspicious nodule. No localized inflammatory process is seen within the lungs. Limited images of the upper abdomen reveal mild gallbladder wall thickening. IMPRESSION: Large bilateral pulmonary emboli. The emergency department was notified of this finding at 5:20 PM. Findings of right heart strain. Authenticated and [facility]
--- NOTE | 2023-02-25 14:24 | HMH.EDGENADL ---
Discharge Plan Disposition Patient Disposition: Admitted Chief Complaint: Chest Pain Prescriptions Prescriptions: No Action albuterol sulfate 90 mcg/actuation HFA aerosol inhaler 2 inh IH Q6H PRN (Reason: shortness of breath or wheezing) 90 Days Qty: 8.5 3RF levofloxacin 750 mg tablet 750 mg PO DAILY Qty: 30 0RF benzonatate 100 mg capsule 100 mg PO TID PRN (Reason: cough) Qty: 30 0RF fluticasone propionate [Flonase Allergy Relief] 50 mcg/actuation spray,suspension 1 spray intranasal DAILY Qty: 16 2RF Rx Instructions: administer into each nostril ergocalciferol (vitamin D2) 1,250 mcg (50,000 unit) capsule See Rx Instructions .ROUTE .COMPLEX Qty: 4 2RF Dose Instruction: TAKE ONE CAPSULE BY MOUTH EVERY WEEK Rx Instructions: TAKE ONE CAPSULE BY MOUTH EVERY WEEK cholecalciferol (vitamin D3) 25 mcg (1,000 unit) tablet See Rx Instructions .ROUTE .COMPLEX Qty: 30 2RF Dose Instruction: TAKE ONE TABLET BY MOUTH ONCE A DAY Rx Instructions: TAKE ONE TABLET BY MOUTH ONCE A DAY famotidine 40 mg tablet See Rx Instructions .ROUTE .COMPLEX Qty: 30 2RF Dose Instruction: TAKE ONE TABLET BY MOUTH ONCE A DAY FOR GERD Rx Instructions: TAKE ONE TABLET BY MOUTH ONCE A DAY FOR GERD loratadine 10 mg tablet See Rx Instructions .ROUTE .COMPLEX Qty: 30 0RF Dose Instruction: TAKE ONE TABLET BY MOUTH ONCE A DAY FOR ALLERGIES Rx Instructions: TAKE ONE TABLET BY MOUTH ONCE A DAY FOR ALLERGIES duloxetine 30 mg capsule,delayed release(DR/EC) See Rx Instructions .ROUTE .COMPLEX Rx Instructions: TAKE ONE CAPSULE BY MOUTH ONCE A DAY FOR DEPRESSION ipratropium-albuterol 3 ML solution for nebulization See Rx Instructions .Route .COMPLEX Rx Instructions: INHALE CONTENTS OF 1 VIAL VIA NEBULIZER FOUR TIMES A DAY NEEDED FOR SHORTNESS OF BREATH OR WHEEZING atorvastatin 10 mg tablet See Rx Instructions .ROUTE .COMPLEX Rx Instructions: TAKE ONE TABLET BY MOUTH ONCE A DAY FOR CHOLESTEROL Anoro Ellipta 62.5-25 mcg/actuation blister with device 1 inh inhalation DAILY tramadol 50 mg tablet 50 mg PO TID Qty: 90 1RF gabapentin 600 mg tablet 600 mg PO TID Qty: 90 1RF gabapentin 600 mg tablet 600 mg PO TID Qty: 90 1RF tramadol 50 mg tablet 50 mg PO TID Qty: 90 1RF Referrals Follow up/Referrals: Nathan Guerra MD [Primary Care Provider] - See instructions Clinical Impressions Clinical Impression: Pulmonary embolism, Chest pain, Tachycardia Discharge ED Provider: Lexa Catsro General Adult HPI General Chief complaint: Chest Pain Stated complaint: CP Time Seen by Provider: 02/25/23 13:56 Mode of Arrival: EMS Source of Information: Patient Limitations: No Limitations Description of Symptoms (Recalled from ER Triage Doc. by RN): pt has radha feeling under the weather for the last few weeks thinking he was getting a chest cold. pt began having chest pain 3 days ago which starts on the left side and radiates to back and is worse when patient takes a breath in makes the pain worse. History of Present Illness HPI narrative: Patient is a 62-year-old male with past medical history of COPD not on home oxygen presents emergency department for evaluation of shortness of breath and rapid heart rate. Onset was subacute over the last 2 weeks. Patient initially had upper respiratory symptoms which migrated down into his chest. He has also had chest pain onset over the last 24 hours that radiates up into his left shoulder. No other acute complaints at this time. Related Data Home Medications Medication Instructions Recorded Confirmed ipratropium 0.5 mg-albuterol 3 mg See Rx Instructions .Route 06/16/21 02/15/23 (2.5 mg base)/3 mL nebulization .COMPLEX Asthma soln atorvastatin 10 mg tablet See Rx Instructions .Route 01/08/22 02/15/23 .COMPLEX Cholesterol duloxetine 30 mg capsule,delayed
--- NOTE | 2023-02-25 14:31 | PC.NURSE ---
respiratory notified of VBG order
[2023-02-25 14:37] LABS: Chloride 103 mmol/L (98-107); Potassium 4.1 mmoL/L (3.5-5.1)
[2023-02-25 14:40] LABS: Alanine Aminotransferase 21 U/L (12-78); Albumin Level 4.3 g/dl (3.5-5.0); Albumin/Globulin Ratio 1.2 (1.1-1.8); Alkaline Phosphatase 119 U/L (38-126); Anion Gap 8.1 mEq/L (5-15); Aspartate Amino Transferase 37 U/L (17-59); Bilirubin,Total 0.7 mg/dl (0.2-1.3); Blood Urea Nitrogen 13 mg/dl (9-20); Carbon Dioxide 32 mmol/L (22.0-30.0); Creatinine Clearance Estimated 61 mL/min (50-200); Estimated Glomerular Filt Rate 85 ml/min (>60); GFR (African American) 103 ML/MIN (>60); Globulin 3.6 g/dL (1.3-3.2); Sodium 139 mmol/L (136-145); Total Protein,Serum 7.9 g/dl (6.3-8.2)
[2023-02-25 14:41] LABS: Calcium 9.5 mg/dl (8.4-10.2); Glucose 119 mg/dl (74-100)
[2023-02-25 14:43] LABS: VBG PCO2 50.9 mmol/L (35-51); VBG PH 7.32 mmol/L (7.31-7.41)
[2023-02-25 14:44] LABS: VBG Base Excess -1.3 mmol/L (-2.4-2.3); VBG HCO3 25.8 mmol/L (23-30); VBG Oxygen Saturation 37.4 % (50-70); VBG Total CO2 27.3 mmol/L (23-27)
[2023-02-25 14:53] LABS: Troponin I 0.17 ng/ml (0.00-0.034)
[2023-02-25 15:17] LABS: Lactic Acid 1.6 mmol/L (0.7-2.1)
--- NOTE | 2023-02-25 15:56 | PC.NURSE ---
Rounded on pt. No needs voiced at this time. Call light remains within reach.
--- NOTE | 2023-02-25 16:51 | PC.NURSE ---
DR SHEPHERD SPEAKING WITH DR JANE
--- NOTE | 2023-02-25 16:56 | ECG_ITS ---
APPROVED REPORT Exam: Resting ECG HR:123 bpm ECG Measurements Heart Rate 123 AXES NV 132 P 65 QRSd 86 QRS 79 QT 310 T 39 QTc 383 Conclusion SINUS TACHYCARDIA POSSIBLE RIGHT VENTRICULAR CONDUCTION DELAY [RSR (QR) IN V1/V2] ABNORMAL RHYTHM ECG UNCONFIRMED REPORT Electronically signed by : Darvin Dempsey MD 02/27/2023 21:16:45
--- NOTE | 2023-02-25 17:00 | PC.NURSE ---
Per Dr. Castro, Dr. Mattson would like pt to be started on Aggressive Heparin dose for PE . Dr. Mattson would like to use Heparin 100 unit/kg bolus and 1,400 unit/hr gtt. Called [facility], no answer. Will page them.
[2023-02-25 17:08] LABS: INR 0.97 (0.9-1.1); Prothrombin Time 10.5 seconds (10.1-12.5)
[2023-02-25 17:16] LABS: PTT Heparin (inpatient only) 33.6 Seconds (23.6-34.0)
--- NOTE | 2023-02-25 17:29 | PC.NURSE ---
1708- Nitesh with [facility] returned call. They report the highest dose it 80 units/kg bolus and 1,[address] Castro was consulted on this and stated to call on-call [facility]. 1717- s/w Last Stern and he also reports he does not have any higher dosing protocols > 80 units/kg. He is going to review the dosing and call back. 1735- Last Stern called back verifying this to be the max dose. He is going to call Dr. Mattson to s/w him directly. 1745- Last Stern reports Dr. Mattson is agreeing to the High protocol.
--- NOTE | 2023-02-25 17:54 | PC.NURSE ---
Dr. Post at bedside s/w pt.
--- NOTE | 2023-02-25 18:02 | PC.NURSE ---
called report to eve cleaning on 2nd floor and answered all questions
--- NOTE | 2023-02-25 18:27 | PC.NURSE ---
arrived to floor at 18:05 by stretcher from ED
--- NOTE | 2023-02-25 19:00 | EXP.HP ---
History of Present Illness *Admission Date: 02/25/23 *Reason for visit:: CP *History of present illness: This is a 62-year-old male with PMHx of COPD not on home oxygen, heavy current smoker greater than 30 years, GERD, polyneuropathy with Chronic pain presented to emergency department for evaluation of shortness of breath and rapid heart rate. Onset was subacute over the last 2 weeks. Patient initially described some difficult breathing with central chest pressure. Chest pain onset over the last 24 hours that radiates up into his left shoulder. No other acute complaints at this time. Arrived to ER for evaluation. Admitted for treatment and management [facility] Disclaimer: The information contained in this section may have been updated after the patient was seen, as this information can be updated by other users. Medical History Anxiety and depression Chronic pain COPD (chronic obstructive pulmonary disease) COPD (chronic obstructive pulmonary disease) Dysphagia Dyspnea on exertion Encounter for screening for malignant neoplasm of lung in former smoker who quit in past 15 years with 30 pack year history or greater Heartburn Insomnia Polyarthralgia Pulmonary emphysema Smoking greater than 30 pack years Tobacco abuse counseling Tobacco abuse disorder Surgical History History of carpal tunnel release History of total hip replacement Family History Other No significant family history Social History (Updated 02/25/23 @ 17:43 by Frannie Munguia RN) Smoking Status: Current every day smoker tobacco type: cigarettes packs per day: 1 alcohol intake: current substance use type: former substance user current occupational status: disabled Travel in the last 8 weeks: None household members: family housing: house current occupational exposures/hazards: No caffeine: Yes Review of Systems Review of Systems Review of systems:: pertinent systems reviewed and negative unless documented below Meds Home Medications and Allergies Home Medications Medication Instructions Recorded Confirmed Type ipratropium 0.5 mg-albuterol 3 mg See Rx Instructions .Route 06/16/21 02/25/23 History (2.5 mg base)/3 mL nebulization .COMPLEX Asthma soln atorvastatin 10 mg tablet See Rx Instructions .Route 01/08/22 02/25/23 History .COMPLEX Cholesterol duloxetine 30 mg capsule,delayed See Rx Instructions .Route 02/12/22 02/25/23 History release .COMPLEX MOOD albuterol sulfate 90 mcg/actuation 2 inh inhalation Q6H PRN shortness 08/29/22 02/25/23 Rx aerosol inhaler of breath or wheezing 90 days #8.5 grams umeclidinium 62.5 mcg-vilanterol 1 inh inhalation DAILY Breathing 09/24/22 02/25/23 History 25 mcg/actuation powdr for problems inhalation (Anoro Ellipta) cholecalciferol (vitamin D3) 25 See Rx Instructions .Route 12/19/22 02/25/23 Rx mcg (1,000 unit) tablet .COMPLEX #30 tabs ergocalciferol (vitamin D2) 1,250 See Rx Instructions .Route 12/19/22 02/25/23 Rx mcg (50,000 unit) capsule .COMPLEX #4 caps famotidine 40 mg tablet See Rx Instructions .Route 12/19/22 02/25/23 Rx .COMPLEX #30 tabs loratadine 10 mg tablet See Rx Instructions .Route 12/19/22 02/25/23 Rx .COMPLEX #30 tabs fluticasone propionate 50 1 spray intranasal DAILY #16 grams 01/16/23 02/25/23 Rx mcg/actuation nasal spray,suspension (Flonase Allergy Relief) gabapentin 600 mg tablet 600 mg PO TID #90 tabs 02/18/23 02/25/23 Rx tramadol 50 mg tablet 50 mg PO TID Pain #90 tabs 02/18/23 02/25/23 Rx New Prescriptions to Start Prescriptions: Allergies Allergy/AdvReac Type Severity Reaction Status Date / Time No Known Allergies Allergy Verified 02/25/23 17:42 Exam Data for Last 24 hours Vital signs and Labs for Last 24 Hours: Temp Pulse Resp BP Pulse Ox O2 D
[2023-02-25 19:28] LABS: Troponin I 0.22 ng/ml (0.00-0.034)
--- NOTE | 2023-02-25 20:00 | PC.NURSE ---
Called lab to verify if 1829 aPTT was drawn. Lab was drawn in ER, but no pt label created at the time. Lab says smooth stucco resurfacer will come and stick pt for late aPTT.
--- NOTE | 2023-02-25 20:00 | PC.NURSE ---
Bedside report given, heparin gtt running at 1000 u/hr (20 mL/hr).
[2023-02-25 21:11] LABS: Troponin I 0.16 ng/ml (0.00-0.034)
[2023-02-25 21:12] LABS: PTT Heparin (inpatient only) 174.8 Seconds (23.6-34.0)
[2023-02-26] VITALS (19 sets, daily range): BP systolic 94–143; BP diastolic 54–87; PULSE 70–100; RESP 15–22; TEMP 36.4–36.8; O2SAT 96–98; BMI 17.8
[2023-02-26 03:37] LABS: PTT Heparin (inpatient only) 73.7 Seconds (23.6-34.0)
--- NOTE | 2023-02-26 05:08 | PC.NURSE ---
Pt awake, AOx4 throughout most of shift, VSS. HR decreased to 80's on 0500 RN rounding. Pt denies any SOB or acute pain, only sharp pain on deep inspiration. Heparin gtt infusing at 700 u/hr (14 mL/hr), next aPTT scheduled, maintained with communications from pharmacy. SRNAs able to prep pt for thrombectomy this a.m. No acute events or issues overnight.
[2023-02-26 07:19] LABS: Basophils % 0.1 % (0.1-2.0); Eosinophils # 0.3 K/mm3 (0.0-0.4); Eosinophils % 1.7 % (0.1-12.0); Hematocrit 44.3 % (42.0-52.0); Lymphocytes # 1.1 K/mm3 (0.7-4.5); Lymphocytes % 6.4 % (10-50); Mean Corpuscular HGB Conc 34.6 g/dL (31.8-35.4); Mean Corpuscular Hemoglobin 31.9 pg (27.0-31.2); Mean Corpuscular Volume 92.2 fl (80-94); Mean Platelet Volume 9.1 fl (7.4-10.4); Monocytes # 0.5 K/mm3 (0.1-1.0); Neutrophils # 15.2 K/mm3 (1.8-7.8); Neutrophils % 88.7 % (37.0-80.0); Platelet Count 242 K/mm3 (142-424); Red Blood Count 4.81 M/mm3 (4.60-6.20); Red Cell Distribution Width 14.1 % (11.5-17.5); White Blood Count 17.2 K/mm3 (4.8-10.8)
[2023-02-26 07:27] LABS: Hemoglobin 15.4 g/dL (14.1-18.0); MANUAL DIFFERENTIAL MANUAL DIFFERENTIAL (MANUAL DIFF)
[2023-02-26 07:29] LABS: Alanine Aminotransferase 31 U/L (12-78); Albumin Level 3.4 g/dl (3.5-5.0); Albumin/Globulin Ratio 1.2 (1.1-1.8); Alkaline Phosphatase 93 U/L (38-126); Anion Gap 10.8 mEq/L (5-15); Aspartate Amino Transferase 39 U/L (17-59); Bilirubin,Total 0.4 mg/dl (0.2-1.3); Blood Urea Nitrogen 10 mg/dl (9-20); Calcium 8.9 mg/dl (8.4-10.2); Carbon Dioxide 23 mmol/L (22.0-30.0); Chloride 107 mmol/L (98-107); Creatinine Clearance Estimated 58 mL/min (50-200); Estimated Glomerular Filt Rate 114 ml/min (>60); GFR (African American) 138 ML/MIN (>60); Globulin 2.9 g/dL (1.3-3.2); Glucose 150 mg/dl (74-100); Magnesium 1.9 mg/dl (1.6-2.3); Potassium 3.8 mmoL/L (3.5-5.1); Sodium 137 mmol/L (136-145); Total Protein,Serum 6.3 g/dl (6.3-8.2)
[2023-02-26 07:46] LABS: Lymphocytes % 7 % (10-50); Monocytes % 4 % (2-9); Neutrophils % 89 % (42-76); Platelet Estimate Normal; RBC Morphology Normal; Total Cells Counted 100
--- NOTE | 2023-02-26 08:20 | HMH.PHAINT1 ---
Pharmacy Intervention Comments: HOME MEDICATION LIST VERIFIED USING LIST FROM OUTPATIENT PHARMACY AND PT INTERVIEW.
--- NOTE | 2023-02-26 08:30 | CA_ITS ---
APPROVED REPORT EXAM: Comprehensive 2D, Doppler, and color-flow Echocardiogram Dairy Husbandry Teacher: ELENA Polanco, RVS Ht: 5 ft 8 in Wt: 120lbs BSA: 1.64 BP: 104/73 mmHg Indications: Pulmonary Embolism, Smoker, CP, COPD, HLD Echo Enhancing Agent Comments: Poor/ Limited acoustic windows due to patient factors with lung impedance 2D Dimensions IVSd 0.63 cm LVEF (Visual) 70.20 % PWd 0.93 cm LA Volume 9.90 mL LVDd 3.55 cm LA Volume Index 5.90 mL/m2 (M/F) 16-34 LVDs 2.17 cm Aortic Root 3.61 cm Left Atrium 2.25 cm LVOT 1.94 cm (M/F) 1.5-2.5 M-Mode Dimensions LA Diam 2.54 cm (1.9-4.0) Ao Diam 3.57 cm (2.0-3.7) EPSs 0.41 cm TAPSE 1.31 (<1.7) LV Diastology E Decel Time 170.00 (160-240 msec) E/A Ratio 0.85 MED E' 6.80 (< 7 cm/sec) MED A' 9.80 cm/s E'/MED E' Ratio 8.75 (>14) LAT E' 8.10 (<10 cm/sec) LAT A' 12.70 cm/s E/LAT E' Ratio 7.35 (>14) Aortic Valve LVOT Max 72.00 (70-110 cm/s) LVOT VTI 14.26 cm AoV Peak Kg. 83.00 (50-130 cm/s) AO Peak GR. 2.70 mmHg AO Mean GR. 1.40 (<5 mmHg) AO VTI 13.19 (18-25 cm) JESSICA (VTI) 3.20 (2.5-4.5 cm2) Mitral Valve MV A Velocity 70.00 (40-130 cm/s) E/A Ratio 0.85 MV Decel. Time 170.00 (160-240 ms) MV Mean Gr. 0.90 (<2mmHg) Tricuspid Valve TR P. Velocity 300.00 cm/s RAP Estimate 10.00 mmHg RVSP 46.00 mmHg Left Ventricle The left ventricle is normal size. The left ventricular systolic function is normal. The left ventricular ejection fraction is within the normal range. There is increased LV wall thickness. There is normal LV segmental wall motion. LVEF is 60-65%. Right Ventricle Right ventricle is severely dilated. Right ventricular systolic function is moderately reduced. The right ventricle free wall appears nearly akinetic, whereas the apex appears hypokinetic. Findings are consistent with positive Collins sign. Atria The left atrium size is normal. The right atrium size is normal. There is no Doppler evidence of interatrial shunt. Aortic Valve The aortic valve is mildly thickened. There is no aortic valvular stenosis. No aortic regurgitation is present. Mitral Valve The mitral valve leaflets are mildly thickened. No evidence of mitral valve stenosis. Trace mitral regurgitation. Tricuspid Valve The tricuspid valve leaflets are thin and pliable. Mild tricuspid regurgitation. RVSP is 35-40 mmHg. Pulmonic Valve The pulmonary valve is normal in structure. Trace pulmonic regurgitation. Great Vessels The aortic root is normal in size. The ascending aorta is not well visualized. IVC is normal in size and collapses >50% with inspiration. Pericardium Trivial anterior pericardial effusion is present. No echo indications of tamponade. Other Information Study Quality: Fair Conclusion Normal LV systolic function. Severely dilated RV with moderate the reduced RV function. Collins sign is present. Mild TR. Elevated RVSP 35-40 mmHg. Trivial pericardial effusion. No echo indications of tamponade. Electronically signed by : Kylie Kiser MD 02/26/2023 21:34:27
--- NOTE | 2023-02-26 08:30 | HMH.PHAHEP ---
[facility] Pharmacy Heparin Dosing Demographic Data Admission date:: 02/25/23 Date: 02/26/23 Time: 08:30 Allergies Allergy/AdvReac Type Severity Reaction Status Date / Time No Known Allergies Allergy Verified 02/25/23 17:42 Height: 1.75 m Weight: 54.5 kg Indication Medication therapy:: Heparin Current Indications:: HIGH DOSE PROTOCOL - PE Current Active Problems DVT (deep venous thrombosis) (Acute) Hyperlipidemia (Acute) Pulmonary embolism (Acute) Chest pain (Acute) Tachycardia (Acute) SOB (shortness of breath) (Acute) COPD (chronic obstructive pulmonary disease) (Chronic) Lumbar radiculopathy (Chronic) Tobacco use (Acute) CVA?: No Bleeding problem?: No Kidney disease?: No IA?: No Desired PTT range:: 50-75 seconds Labs Anticoagulation Lab Results:: 02/25/23 02/26/23 13:58 07:09 Hgb 17.6 15.4 D Hct 52.8 H 44.3 Plt Count 229 242 Monitoring Dose Monitor 1: Date: 02/25/23 Time: 17:30 PTT Result:: BASELINE PTT: 33.6 SECONDS Infusion Rate:: INITIATED HEPARIN DRIP AT 1000 UNITS/HOUR = 20 ML/HOUR AND BOLUSED 4500 UNITS HEPARIN IV ONCE. Dose Monitor 2: Date: 02/25/23 Time: 20:30 PTT Result:: 174.8 SECONDS Infusion Rate:: PTT DRAWN LATE, ALBERTA OPTED TO CONTINUE CURRENT HEPARIN DRIP RATE OF 1000 UNITS/HOUR = 20 ML/HOUR AND RECHECK ONE HOUR LATER. Dose Monitor 3: Date: 02/25/23 Time: 22:23 PTT Result:: 138.0 SECONDS Infusion Rate:: DECREASED HEPARIN DRIP RATE TO 850 UNITS/HOUR = 17 ML/HOUR Dose Monitor 4: Date: 02/26/23 Time: 00:25 PTT Result:: 113.0 SECONDS Infusion Rate:: DECREASED HEPARIN DRIP RATE TO 700 UNITS/HOUR = 14 ML/HOUR. Dose Monitor 5: Date: 02/26/23 Time: 03:00 PTT Result:: 73.7 SECONDS Infusion Rate:: CONTINUED CURRENT HEPARIN DRIP RATE OF 700 UNITS/HOUR = 14 ML/HOUR. Dose Monitor 6: Date: 02/26/23 Time: 07:09 PTT Result:: 55.0 SECONDS Infusion Rate:: CONTINUED CURRENT HEPARIN DRIP RATE OF 700 UNITS/HOUR = 14 ML/HOUR. Dose Monitor 7: Date: 02/26/23 Time: 11:15 PTT Result:: 48.8 SECONDS Infusion Rate:: INCREASE HEPARIN DRIP RATE TO 800 UNITS/HOUR = 16 ML/HR AND BOLUS 3000 UNIT IV HEPARIN ONCE Dose Monitor 8: Date: 02/26/23 Time: 17:37 PTT Result:: 74.9 SECONDS Infusion Rate:: DRIP STOPPED AFTER PATIENT WENT TO SATURATOR OPERATOR, PATIENT STARTED ON XARELTO. Core Measures Is INR > or = 2 at discharge?: No Most Recent Labs:: Laboratory Results - last 24 hr 02/25/23 13:58: WBC 8.7, RBC 5.62, Hgb 17.6, Hct 52.8 H, MCV 94.0, MCH 31.3 H, MCHC 33.3, RDW 14.2, Plt Count 229, MPV 8.5, Neut % (Auto) 75.8, Lymph % (Auto) 15.6, [place] % (Auto) 7.1, Eos % (Auto) 1.0, Baso % (Auto) 0.5, Neut # (Auto) 6.6, Lymph # (Auto) 1.4, [place] # (Auto) 0.6, Eos # (Auto) 0.1, Baso # (Auto) 0.0, PT 10.5, INR 0.97, APTT 33.6, Sodium 139, Potassium 4.1, Chloride 103, Carbon Dioxide 32 H, Anion Gap 8.1, BUN 13, Creatinine 0.90, Estimated Creat Clear 61, Estimated GFR 85, Est GFR ( Amer) 103, Glucose 119 H, Calcium 9.5, Total Bilirubin 0.7, AST 37, ALT 21, Alkaline Phosphatase 119, Troponin I 0.17 H, Total Protein 7.9, Albumin 4.3, Globulin 3.6 H, Albumin/Globulin Ratio 1.2 02/25/23 14:29: VBG pH 7.32, VBG pCO2 50.9, VBG pO2 22.0 L, VBG HCO3 25.8, VBG Total CO2 27.3 H, VBG O2 Saturation 37.4 L, VBG Base Excess -1.3 02/25/23 14:35: Lactate 1.6 02/25/23 17:44: Troponin I 0.22 H 11/06/23 20:30: APTT 174.8 H*, Troponin I 0.16 H 02/25/23 22:23: APTT 138.0 H* 02/26/23 00:25: APTT 113.0 H* 02/26/23 03:00: APTT 73.7 H* 02/26/23 07:09: WBC 17.2 H D, RBC 4.81, Hgb 15.4 D, Hct 44.3, MCV 92.2, MCH 31.9 H, MCHC 34.6, RDW 14.1, Plt Count 242, MPV 9.1, Neut % (Auto) 88.7 H, Lymph % (Auto) 6.4 L, [place] % (Auto) 3.0, Eos % (Auto) 1.7, Baso % (Auto) 0.1, Neut # (Auto) 15.2 H, Lymph # (Auto) 1.1, [place] # (Auto) 0.5, Eos # (Auto) 0.
--- NOTE | 2023-02-26 10:22 | IR_ITS ---
APPROVED REPORT Patient Location: Inpatient PROCEDURES Right heart catheterization Catheter placement in the right pulmonary artery Right pulmonary selective angiogram Catheter placed in the left pulmonary artery Left pulmonary artery selective angiogram Mechanical thrombectomy to the right pulmonary artery and segmental branches of the middle and lower right pulmonary artery Mechanical thrombectomy to the left pulmonary artery and segmental branches of the lower left pulmonary artery Post thrombectomy right pulmonary artery selective angiogram Post thrombectomy left pulmonary artery selective angiogram INDICATION Submassive pulmonary embolism, Right ventricular strain, Informed consent was obtained prior to the procedure. COMPLICATIONS None Estimated Blood Loss: Less than 10 mls TECHNIQUE 1% lidocaine used anesthetize the right groin the right femoral vein was accessed via the center technique and a 5 Dutch sheath is placed in the right femoral vein. An angled pigtail catheter was placed in the right pulmonary artery and right pulm artery selective angiography was performed. The catheter was placed into the left pulmonary artery were left pulm artery selective angiography was performed. Following this an Amplatz wire was placed through the catheter out into the right lower pulmonary artery and a 5 Dutch pigtail catheter and sheath were removed. Therapeutic heparin was administered giving a therapeutic ACT. An 11 Dutch sheath was used to dilate the venous track. Following this a 16 Dutch sheath was placed in the right femoral vein. A 6 Dutch catheter was passed through the 16 Dutch penumbra mechanical aspiration catheter under fluoroscopic guidance the catheter was passed out into the distal right pulmonary artery. The wire and 6 Dutch catheter were removed from the 16 Dutch sheath. Mechanical aspiration was performed and large thrombi was removed from the middle and lower segmental branches of the pulmonary artery. Post thrombectomy angiography demonstrated wide patency with significant debulking of the large clot burden in the pulmonary artery. Following this the catheter was placed into the left segmental branch of the pulmonary artery and the procedure was repeated. Post mechanical thrombectomy angiography was performed. After achieving excellent angiographic results and removal of the large thrombus burden from the pulmonary arteries as described above the apparatus was removed. The 16 Dutch sheath was removed and a Z stitch was placed in order to achieve hemostasis. The patient was transferred the postop putting in stable condition ANGIOGRAPHIC RESULTS Main pulmonary arteries patent Right pulmonary patent So large thrombus in the right middle and lower segmental branches of the pulmonary artery. Following thrombectomy there was wide inline flow throughout the entire right lung Left pulmonary artery patent Left lower pulmonary artery has large thrombus burden. Following thrombectomy there was wide inline flow throughout the entire left lung. Premechanical thrombectomy right heart catheterization revealed: Right atrial pressure 15 mmHg Pulmonary pressure 42/20 mmHg IMPRESSION Bilateral pulmonary emboli as described above Successful right heart catheterization Successful selective pulmonary angiography as described above Successful mechanical thrombectomy to the bilateral pulmonary arteries as described above PLAN 1. Xarelto 15 twice daily to start today for 3 weeks followed by 20 mg a day thereafter 2. Further evaluation for occult etiologies of hypercoagulable state 3. Recommend full cancer screenings Electronically signed by : Rodolfo Mattson MD 02/26/2023 15:21:36
--- NOTE | 2023-02-26 11:36 | EXP.CARD.CON ---
History of Present Illness History of Present Illness Consult date: 02/26/23 Requesting physician: Brendon Ball Consult reason: chest pain and shortness of breath Chief complaint: CP, SOB History of present illness: This is a 62-year-old gentleman who presented to the emergency department complaints of chest pain. He has a known history of COPD, GERD, chronic pain and is a current tobacco user. The patient states that he had not felt well for the past 2 to 3 weeks with an upper respiratory infection that he states was not getting any better. He states that he was really short of breath and then approximately 2 to 3 days ago he started having left-sided chest pain. He states that this was a pressure type sensation in the left side of his chest. He states that this radiated up into his left shoulder and left arm. This was a severe 10 out of 10 pain. The patient states that nothing was helping to improve the pain. It was worse with exertion. He states after 3 days of having the chest pain he decided to call EMS and come to the emergency department. The patient was found to have large bilateral pulmonary emboli with right heart strain noted on CT. This morning he states that he is still having the chest pain especially with taking deep breaths. His blood pressure is on the lower side but acceptable this morning. The patient is scheduled to undergo embolectomy today for the bilateral pulmonary emboli. [facility] Disclaimer: The information contained in this section may have been updated after the patient was seen, as this information can be updated by other users. Medical History (Updated 02/26/23 @ 11:42 by Tatiana Renee APRN) Anxiety and depression Chronic pain COPD (chronic obstructive pulmonary disease) COPD (chronic obstructive pulmonary disease) Dysphagia Dyspnea on exertion Encounter for screening for malignant neoplasm of lung in former smoker who quit in past 15 years with 30 pack year history or greater Heartburn Hyperlipidemia Insomnia Polyarthralgia Pulmonary emphysema Smoking greater than 30 pack years Tobacco abuse counseling Tobacco abuse disorder Surgical History History of carpal tunnel release History of total hip replacement Family History Other No significant family history Social History (Updated 02/25/23 @ 17:43 by Frannie Munguia RN) Smoking Status: Current every day smoker tobacco type: cigarettes packs per day: 1 alcohol intake: current substance use type: former substance user current occupational status: disabled Travel in the last 8 weeks: None household members: family housing: house current occupational exposures/hazards: No caffeine: Yes Review of Systems Review of Systems Review of systems:: pertinent systems reviewed and negative unless documented below Constitutional Constitutional: Reports system reviewed and no additional complaints, except as documented Eyes Eyes: Reports system reviewed and no additional complaints, except as documented ENT Ears, Nose, Mouth, and Throat: Reports system reviewed and no additional complaints, except as documented *Cardiovascular Cardiovascular: Reports system reviewed and no additional complaints, except as documented, Reports chest pain, Reports chest pain at rest, Reports chest pain with activity, Reports dyspnea, Reports dyspnea on exertion and Denies rapid heart rate *Respiratory Respiratory: Reports system reviewed and no additional complaints, except as documented, Denies cough, Reports dyspnea, Reports dyspnea on exertion, Denies hemoptysis, Reports pain on inspiration and Reports pain with cough *Gastrointestinal Gastrointestinal: Reports system reviewed and no additional complaints, except as documented *Genitourinary Genitourinary: Reports system reviewed and no additional complaints, except as documented *Musculoskeletal Musculo
[2023-02-26 12:43] LABS: PTT Heparin (inpatient only) 48.8 Seconds (23.6-34.0)
--- NOTE | 2023-02-26 12:51 | PC.NURSE ---
Heparin drip adjusted to 16mlhr 800 units per V.C. in pharmacy. Verified by CHANDLER Contreras.
--- NOTE | 2023-02-26 13:09 | EXP.ACUTE.PN ---
Subjective *Date: 02/26/23 *Time: 13:09 Interval history: States he is breathing a little bit better this morning. Stable on room air. Remains tachycardic. No nausea vomiting or chest pain. Medical Exam Vital signs and Labs for Last 24 Hours: Vital Signs Temp Pulse Pulse Resp BP BP Pulse Ox 02/26/23 12:00 98 F 02/26/23 11:32 80 02/26/23 11:32 82 02/26/23 10:53 02/26/23 10:34 74 20 107/62 L 98 02/26/23 08:00 70 02/26/23 09:00 02/26/23 08:43 97.6 F 02/26/23 06:45 02/26/23 06:20 88 02/26/23 06:20 84 02/26/23 06:00 86 22 98/69 L 97 02/26/23 05:00 02/26/23 04:00 80 02/26/23 04:00 97.9 F 86 20 100/67 L 96 02/26/23 03:00 02/26/23 02:00 90 22 101/62 L 96 02/26/23 00:00 100 H 02/26/23 01:00 02/26/23 00:25 86 02/26/23 00:25 90 02/26/23 00:00 98 02/26/23 00:00 97.7 F 98 H 22 94/54 L 98 02/25/23 23:00 02/25/23 20:00 120 H 02/25/23 22:00 102 H 22 99/63 L 97 02/25/23 21:00 02/25/23 20:00 97 02/25/23 20:00 98.3 F 122 H 22 108/66 L 97 02/25/23 19:00 113 H 22 113/69 97 02/25/23 18:30 109 H 24 101/65 L 98 02/25/23 18:12 113 H 22 104/73 L 98 02/25/23 18:15 113 H 98 02/25/23 19:00 02/25/23 18:10 98.2 F 126 H 20 104/73 L 92 L 02/25/23 18:04 98.1 F 111 H 20 86/56 L 02/25/23 17:00 127 H 20 92/62 L 97 02/25/23 16:30 122 H 18 100/70 L 96 02/25/23 16:00 122 H 24 88/62 L 94 L 02/25/23 15:30 119 H 15 103/64 L 100 02/25/23 15:00 123 H 94/67 L 97 02/25/23 14:30 127 H 25 H 116/81 97 02/25/23 14:29 128 H 02/25/23 13:52 98.2 F 128 H 20 110/74 97 O2 Del Method 02/26/23 12:00 02/26/23 11:32 02/26/23 11:32 02/26/23 10:53 Room Air 02/26/23 10:34 Room Air 02/26/23 08:00 02/26/23 09:00 Room Air 02/26/23 08:43 02/26/23 06:45 Room Air 02/26/23 06:20 02/26/23 06:20 02/26/23 06:00 Room Air 02/26/23 05:00 Room Air 02/26/23 04:00 02/26/23 04:00 Room Air 02/26/23 03:00 Room Air 02/26/23 02:00 Room Air 02/26/23 00:00 02/26/23 01:00 Room Air 02/26/23 00:25 02/26/23 00:25 02/26/23 00:00 Room Air 02/26/23 00:00 Room Air 02/25/23 23:00 Room Air 02/25/23 20:00 02/25/23 22:00 Room Air 02/25/23 21:00 Room Air 02/25/23 20:00 Room Air 02/25/23 20:00 Room Air 02/25/23 19:00 Room Air 02/25/23 18:30 Room Air 02/25/23 18:12 Room Air 02/25/23 18:15 Room Air 02/25/23 19:00 Room Air 02/25/23 18:10 Room Air 02/25/23 18:04 Room Air 02/25/23 17:00 02/25/23 16:30 02/25/23 16:00 02/25/23 15:30 Room Air 02/25/23 15:00 Room Air 02/25/23 14:30 Room Air 02/25/23 14:29 02/25/23 13:52 Room Air Intake and Output 02/25/23 02/26/23 02/26/23 23:59 07:59 15:59 Intake Total 420 / 487 67 / 487 Output Total 0 / 500 1100 / 1100 Balance 0 / -260 -680 / -613 67 / -613 Intake: Intake, Oral Amount 240 / 240 0 / 240 Intake, Total IV Amount 180 / 247 67 / 247 Heparin Sodium,Porcine/D5w 500 180 / 247 67 / 247 ml @ 700 UNITS/HR 14 mls/hr IV .Q25H [facility] Rx#:[id number] Output: Output, Urine Amount 0 / 500 1100 / 1100 Other: Weight 56.387 kg 54.5 kg 54.5 kg Patient Weight 02/26/23 23:59 Weight 54.5 kg Laboratory Results - last 24 hr 02/25/23 13:58: WBC 8.7, RBC 5.62, Hgb 17.6, Hct 52.8 H, MCV 94.0, MCH 31.3 H, MCHC 33.3, RDW 14.2, Plt Count 229, MPV 8.5, Neut % (Auto) 75.8, Lymph % (Auto) 15.6, [place] % (Auto) 7.1, Eos % (Auto) 1.0, Baso % (Auto) 0.5, Neut # (Auto) 6.6, Lymph # (Auto) 1.4, [place] # (Auto) 0.6, Eos # (Auto) 0.1, Baso # (Auto) 0.0, PT 10.5, INR 0.97, APTT 33.6, Sodium 139, Potassium 4.1, Chloride 103, Carbon Dioxide 32 H, Anion Gap 8.1, BUN 13, Creatinine 0.90, Estimated Creat Clear 61, Estimated GFR 85, Est GFR (Af
--- NOTE | 2023-02-26 13:42 | PC.NURSE ---
Patient gone to labor service representative.
--- NOTE | 2023-02-26 15:11 | PC.NURSE ---
Report received from Nitesh in catheter finisher and inspector.
--- NOTE | 2023-02-26 17:15 | PC.NURSE ---
RECEIVED REPORT FROM EMMETT ARTEAGA
[2023-02-26 18:17] LABS: PTT Heparin (inpatient only) 74.9 Seconds (23.6-34.0)
--- NOTE | 2023-02-26 18:34 | PC.NURSE ---
Z STITCH REMOVED AT 1800. BLOOD NOTED. HAD TO HOLD MANUAL PRESSURE FOR 30 MINUTES. BLOOD CURRENTLY CONTROLLED. TELFA AND TEGADERM IN PLACE. WILL CONTINUE TO MONITOR. INSTRUCTED PT TO LIE FLAT FOR ATLEAST ONE HOUR. VERBALIZED UNDERSTANDING.
--- NOTE | 2023-02-26 18:37 | PC.NURSE ---
A&OX4. PT HAS TOLERATED RA WELL WHILE UNDER MY CARE. RESPIRATIONS REGULAR AND UNLABORED. LUNG SOUNDS CLEAR THROUGHOUT. NO COUGH NOTED. HAND E MAIL SYSTEM ADMINISTRATOR EQUAL. +2 PULSES NOTED THROUGHOUT. ACTIVE BOWEL SOUNDS HEARD IN ALL 4 QUADRANTS. SOFT AND NONTENDER. VOIDS PER BATHROOM WITH STANDBY ASSISTANCE. NO PAIN REPORTED THUS FAR. R GROIN CATH SITE NOTED FROM THROMBECTOMY TODAY. DRESSING CURRENTLY CDI. CURRENTLY AT BEDSIDE. PT HAS COMPLETED LIVING WILL PACKET AND WOULD LIKE SOMEONE TO VERIFY WITH HIM. NO NOTARY AVAILABLE AT THIS TIME. WILL PASS ALONG TO THE NEXT SHIFT TO MAKE SURE IT IS COMPLETED TOMORROW WHEN ONE IS AVAILABLE. FAMILY AND PT GOOD WITH THAT. BED IN LOWEST POSITION. CALL LIGHT WITHIN REACH. PT HAS REMAINED ON TELE. NO QUESTIONS OR CONCERNS VOICED FROM PT OR FAMILY AT THIS TIME.
--- NOTE | 2023-02-26 19:24 | CA_ITS ---
FINAL REPORT CLINICAL HISTORY: bilateral PE s COMPARISON: None FINDINGS: DUPLEX VENOUS SONOGRAPHY OF THE BILATERAL LOWER EXTREMITIES Multiple transverse and longitudinal scans were performed of the femoropopliteal deep venous systems, with augmentation and compression maneuvers. HISTORY: Bilateral pulmonary emboli FINDINGS: In the right leg, normal phasic flow was noted in the visualized deep venous systems. No intraluminal increased echogenicity is noted to suggest thrombus. There is normal compression and augmentation of the venous structures. No abnormal venous collaterals are seen. In the left leg, normal phasic flow was noted to the level of the popliteal vein, with visible thrombus present in the right popliteal and posterior tibial veins. These veins are noncompressible. IMPRESSION: Left lower extremity thrombus in the posterior tibial and popliteal veins as described. No evidence of deep venous thrombosis in the right leg. Reviewed, Interpreted and Dictated by Verenice Hutton MD Transcribed by Gwendolyn Guillen Authenticated and [facility]
[2023-02-27] VITALS (7 sets, daily range): BP systolic 96–123; BP diastolic 56–65; PULSE 72–118; RESP 16–17; TEMP 36.7–36.9; O2SAT 92–96; BMI 18.7
[2023-02-27 06:11] LABS: Basophils % 0.1 % (0.1-2.0); Eosinophils # 0.1 K/mm3 (0.0-0.4); Eosinophils % 0.4 % (0.1-12.0); Hematocrit 35.3 % (42.0-52.0); Lymphocytes # 1.9 K/mm3 (0.7-4.5); Lymphocytes % 15.3 % (10-50); Mean Corpuscular HGB Conc 34.7 g/dL (31.8-35.4); Mean Corpuscular Hemoglobin 32.1 pg (27.0-31.2); Mean Corpuscular Volume 92.6 fl (80-94); Mean Platelet Volume 9.3 fl (7.4-10.4); Monocytes # 0.6 K/mm3 (0.1-1.0); Monocytes % 5.3 % (1.7-9.3); Neutrophils # 9.6 K/mm3 (1.8-7.8); Neutrophils % 78.9 % (37.0-80.0); Platelet Count 266 K/mm3 (142-424); Red Blood Count 3.81 M/mm3 (4.60-6.20); Red Cell Distribution Width 14.6 % (11.5-17.5); White Blood Count 12.2 K/mm3 (4.8-10.8)
[2023-02-27 06:19] LABS: Hemoglobin 12.2 g/dL (14.1-18.0)
--- NOTE | 2023-02-27 06:25 | PC.NURSE ---
pt has rested well t/o night. RA. denies CP and SOA. Pt dsg has been c/d/i until 0500 and a pea-sized amount of blood was noted on the lower part of the gauze - pt stated he went to the toilet and strained to have a BM recently. no other bleeding or hematomas noted upon reassess,
[2023-02-27 06:33] LABS: Alanine Aminotransferase 19 U/L (12-78); Albumin Level 2.7 g/dl (3.5-5.0); Albumin/Globulin Ratio 1.1 (1.1-1.8); Alkaline Phosphatase 71 U/L (38-126); Anion Gap 6.1 mEq/L (5-15); Aspartate Amino Transferase 31 U/L (17-59); Blood Urea Nitrogen 12 mg/dl (9-20); Calcium 8.1 mg/dl (8.4-10.2); Carbon Dioxide 27 mmol/L (22.0-30.0); Chloride 108 mmol/L (98-107); Creatinine Clearance Estimated 61 mL/min (50-200); Estimated Glomerular Filt Rate 114 ml/min (>60); GFR (African American) 138 ML/MIN (>60); Globulin 2.5 g/dL (1.3-3.2); Glucose 92 mg/dl (74-100); Magnesium 2.1 mg/dl (1.6-2.3); Potassium 4.1 mmoL/L (3.5-5.1); Sodium 137 mmol/L (136-145); Total Protein,Serum 5.2 g/dl (6.3-8.2)
[2023-02-27 06:34] LABS: Bilirubin,Total 0.1 mg/dl (0.2-1.3)
--- NOTE | 2023-02-27 08:05 | EXP.DC.SUM ---
General Admission date:: 02/25/23 Discharge date: 02/27/23 HPI HPI HPI: This is a 62-year-old male with PMHx of COPD not on home oxygen, heavy current smoker greater than 30 years, GERD, polyneuropathy with Chronic pain presented to emergency department for evaluation of shortness of breath and rapid heart rate. Onset was subacute over the last 2 weeks. Patient initially described some difficult breathing with central chest pressure. Chest pain onset over the last 24 hours that radiates up into his left shoulder. No other acute complaints at this time. Arrived to ER for evaluation. Admitted for treatment and management Hospital Course Hospital Course Hospital Course: 62-year-old male with PMHx of COPD not on home oxygen, heavy current smoker greater than 30 years, GERD, polyneuropathy with Chronic pain presented to emergency department for evaluation of shortness of breath and rapid heart rate. On arrival patient hemodynamically stable. CTA of the chest showed bilateral PEs with right heart strain. Admitted to medicine for further management. Cardiology consulted, appreciate their recommendations. Taken for thrombectomy with good results and removal of significant clot burden. Has remained hemodynamically stable. Meeting criteria for discharge home. Problems addressed during admission as follows: Submassive bilateral PE Cor pulmonale (right heart strain) -Cardiology consulted, appreciate their recommendations. Patient monitored on telemetry. She had to have elevation in troponin with serial monitoring showing trend of 0.17, 0.22, 0.16. Initiated on heparin drip at admission. Remained stable on room air. Vitals with blood pressure softer than his normal, was tachycardic until thrombectomy. Taken for thrombectomy on 02/26 with removal of significant clot burden. Transitioned to Xarelto. Continue 15 mg twice daily for 3 weeks and then 20 mg daily thereafter. Provided with sample pack for the 15 mg twice daily course. Will continue home famotidine 40 mg daily for GI prophylaxis to decrease risk for GI bleed. Ultrasound of legs obtained showing DVT in left leg but not his right. This is the likely source for his PEs. Would benefit from referral to hematology for hypercoagulability work-up. Also recommend updating his routine cancer screenings. Due for colonoscopy. Stable to discharge home as he is hemodynamically stable. Follow-up with cardiology as an outpatient. COPD: does not seem to be in exacerbation. Continue Anoro inhaler, DuoNebs every 6 hours Lumbar radiculopathy with chronic pain: tylenol, tramadol and gabapentin HLD: Not on statin at home, initiated on low-dose Lipitor 10 mg nightly. Continue at discharge. Stable to discharge home. Spent 30 minutes in discharge counseling and direct care with patient. Exam Data for Last 24 hours Vital signs and Labs for Last 24 Hours: Temp Pulse Resp BP Pulse Ox O2 Del Method O2 Flow Rate 98.1 F 84 16 96/56 L 96 Room Air 98 02/27/23 07:46 02/27/23 07:46 02/27/23 07:46 02/27/23 07:46 02/27/23 07:46 02/27/23 07:46 02/26/23 21:00 Laboratory Results - last 24 hr 02/26/23 11:15: APTT 48.8 H 02/26/23 17:37: APTT 74.9 H* 02/27/23 05:33: WBC 12.2 H D, RBC 3.81 L, Hgb 12.2 L D, Hct 35.3 L, MCV 92.6, MCH 32.1 H, MCHC 34.7, RDW 14.6, Plt Count 266, MPV 9.3, Neut % (Auto) 78.9, Lymph % (Auto) 15.3, Pine % (Auto) 5.3, Eos % (Auto) 0.4, Baso % (Auto) 0.1, Neut # (Auto) 9.6 H, Lymph # (Auto) 1.9, Pine # (Auto) 0.6, Eos # (Auto) 0.1, Baso # (Auto) 0.0, Sodium 137, Potassium 4.1, Chloride 108 H, Carbon Dioxide 27, Anion Gap 6.1, BUN 12, Creatinine 0.70, Estimated Creat Clear 61, Estimated GFR 114, Est GFR ( Amer) 138, Glucose 92 D, Calcium 8.1 L, Magnesium 2.1 D, Total Bilirubin 0.1 L, AST 31, ALT 19 D, Alkaline Phosphatase 71, Total Protein 5.2 L, Albumin 2.7 L D, Globulin 2.5, Albumin/Globulin Ratio 1.1 I & O for Last 24 hours: Intake & Output 02/24/23
[2023-02-27 08:57] LABS: Chol/HDL Ratio 3.7 (1-3.5); Cholesterol 115 mg/dl (140-200); HDL Cholesterol 31 mg/dl (40-60); Triglycerides 90 mg/dl (30-150); VLDL Cholesterol 18 mg/dL (0-40)
[2023-02-27 09:08] LABS: Direct LDL Cholesterol 76.08 mg/dL (100-129)
--- NOTE | 2023-02-27 10:32 | EXP.CARD.PN ---
Subjective Subjective Date: 02/27/23 Time: 08:30 Principal diagnosis: bilateral PEs Interval history: This is a 62-year-old gentleman who presented to the emergency department complaints of chest pain. The patient was found to have large bilateral pulmonary emboli with right heart strain noted on CT. The patient did undergo embolectomy with successful mechanical thrombectomy of the bilateral pulmonary arteries. The patient was switched over from heparin to Xarelto yesterday and is tolerating that well. This morning he denies any chest pain or pressure. He denies any shortness of breath or edema. He denies any fever, chills, nausea, vomiting, diarrhea, PND orthopnea. The patient also has a left posterior tibial and left popliteal DVT. Interventinal embolectomy shows: Main pulmonary arteries patent Right pulmonary patent So large thrombus in the right middle and lower segmental branches of the pulmonary artery. Following thrombectomy there was wide inline flow throughout the entire right lung Left pulmonary artery patent Left lower pulmonary artery has large thrombus burden. Following thrombectomy there was wide inline flow throughout the entire left lung. Premechanical thrombectomy right heart catheterization revealed: Right atrial pressure 15 mmHg Pulmonary pressure 42/20 mmHg IMPRESSION Bilateral pulmonary emboli as described above Successful right heart catheterization Successful selective pulmonary angiography as described above Successful mechanical thrombectomy to the bilateral pulmonary arteries as described above PLAN 1. Xarelto 15 twice daily to start today for 3 weeks followed by 20 mg a day thereafter 2. Further evaluation for occult etiologies of hypercoagulable state 3. Recommend full cancer screenings Exam Data for Last 24 hours Vital signs and Labs for Last 24 Hours: Temp Pulse Resp BP Pulse Ox O2 Del Method O2 Flow Rate 98.1 F 80 16 96/56 L 96 Room Air 98 02/27/23 07:46 02/27/23 08:00 02/27/23 07:46 02/27/23 07:46 02/27/23 07:46 02/27/23 09:00 02/26/23 21:00 Laboratory Results - last 24 hr 02/26/23 11:15: APTT 48.8 H 02/26/23 17:37: APTT 74.9 H* 02/27/23 05:33: WBC 12.2 H D, RBC 3.81 L, Hgb 12.2 L D, Hct 35.3 L, MCV 92.6, MCH 32.1 H, MCHC 34.7, RDW 14.6, Plt Count 266, MPV 9.3, Neut % (Auto) 78.9, Lymph % (Auto) 15.3, Shoshone % (Auto) 5.3, Eos % (Auto) 0.4, Baso % (Auto) 0.1, Neut # (Auto) 9.6 H, Lymph # (Auto) 1.9, Shoshone # (Auto) 0.6, Eos # (Auto) 0.1, Baso # (Auto) 0.0, Sodium 137, Potassium 4.1, Chloride 108 H, Carbon Dioxide 27, Anion Gap 6.1, BUN 12, Creatinine 0.70, Estimated Creat Clear 61, Estimated GFR 114, Est GFR ( Amer) 138, Glucose 92 D, Calcium 8.1 L, Magnesium 2.1 D, Total Bilirubin 0.1 L, AST 31, ALT 19 D, Alkaline Phosphatase 71, Total Protein 5.2 L, Albumin 2.7 L D, Globulin 2.5, Albumin/Globulin Ratio 1.1, Triglycerides 90, Cholesterol 115 L, LDL Cholesterol Direct 76.08 L, VLDL Cholesterol 18, HDL Cholesterol 31 L, Cholesterol/HDL Ratio 3.7 H I & O for Last 24 hours: Intake & Output 02/24/23 02/25/23 02/26/23 02/27/23 23:59 23:59 23:59 23:59 Intake Total 1477 / 1477 470 / 470 Output Total 0 / 500 1100 / 1100 0 / 0 Balance 0 / -260 377 / 377 470 / 470 Weight 124 lb 5 oz 120 lb 2.431 oz 126 lb 4.8 oz Constitutional Constitutional: no acute distress and average body habitus *Routine HEENT Exam Head: Present normocephalic and atraumatic ENT: Present mucous membranes moist *Routine Neck Exam Neck: Present supple, full ROM and normal carotid upstroke; Absent JVD, carotid bruit or lymphadenopathy *Routine Respiratory Exam Respiratory: Present CTA bilaterally, normal respiratory effort, able to speak in complete sentences and symmetric chest movement *Routine Cardiovascular Exam Cardiovascular: Present RRR, Normal S1 and Normal S2; Absent murmur or gallop Comments: Venous duplex shows Left lower extremity thrombus in the posterior tibial and popliteal ve
--- NOTE | 2023-02-28 13:50 | CARE MANAGER ---
Contacted patient related to hospital discharge. He states he is doing well. He denies questions or concerns and wrote down all his follow up appointments. CHANDLER Snow
--- NOTE | 2023-02-28 16:11 | PC.NURSE ---
1048- SPOKE WITH DR. CM R/T PRELIMINARY BLOOD CULTURES CALLED BY LAB. REPORTS RESULTS ARE CONTAMINANTS . STATES NO FURTHER ACTION NEEDED.
== END 2023-02-27 12:19 | disposition home or self-care (01) | DRG 165 ==
LOC: ER 17:09 → 2ND 18:03
PROVIDERS: Internal Medicine; Nurse Practitioner Family; Admitting Provider Internal Medicine Adolescent Medicine; Emergency Provider Emergency Medicine; PCP Emergency Medicine; Visit Provider Internal Medicine Adolescent Medicine
PROC: 02CQ3ZZ Extirpation of Matter from Right Pulmonary Artery, Percutaneous Approach (ICD-10-PCS; principal; 2023-02-26 13:30)
DX: I26.99 Other pulmonary embolism without acute cor pulmonale (principal); J44.9 Chronic obstructive pulmonary disease, unspecified; F41.8 Other specified anxiety disorders; J43.9 Emphysema, unspecified; F17.210 Nicotine dependence, cigarettes, uncomplicated; E78.5 Hyperlipidemia, unspecified; M54.16 Radiculopathy, lumbar region; G89.29 Other chronic pain; Z71.6 Tobacco abuse counseling; K21.9 Gastro-esophageal reflux disease without esophagitis; G62.9 Polyneuropathy, unspecified; I27.81 Cor pulmonale (chronic)
CPT/HCPCS: 36415; 37184; 37185; 71045; 71275; 80053; 80061; 82803; 83605; 83735; 84484; 85007; 85025; 85610; 85730; 87040; 93005; 93306; 93451; 93970; 94640; 99152; 99153; 99291; C1725; C1757; C1769; C1894; J0456; J1644; Q9967

== ENCOUNTER → 2023-03-05 12:14 | Outpatient (CLI) | payer MEDICARE, OTHER, SELFPAY ==
[2023-03-05 13:31] LABS: Basophils # 0.1 K/mm3 (0-0.2); Basophils % 0.6 % (0.1-2.0); Eosinophils # 0.3 K/mm3 (0.0-0.4); Eosinophils % 2.9 % (0.1-12.0); Hematocrit 38.1 % (42.0-52.0); Hemoglobin 13.2 g/dL (14.1-18.0); Lymphocytes # 1.6 K/mm3 (0.7-4.5); Lymphocytes % 16.5 % (10-50); Mean Corpuscular HGB Conc 34.6 g/dL (31.8-35.4); Mean Corpuscular Hemoglobin 32.4 pg (27.0-31.2); Mean Corpuscular Volume 93.6 fl (80-94); Mean Platelet Volume 8.8 fl (7.4-10.4); Monocytes # 0.7 K/mm3 (0.1-1.0); Monocytes % 7.3 % (1.7-9.3); Neutrophils # 6.9 K/mm3 (1.8-7.8); Neutrophils % 72.6 % (37.0-80.0); Platelet Count 631 K/mm3 (142-424); Red Blood Count 4.07 M/mm3 (4.60-6.20); Red Cell Distribution Width 14.2 % (11.5-17.5); Reticulocyte % (Auto) 2.4 % (0.9-3.2); White Blood Count 9.6 K/mm3 (4.8-10.8)
[2023-03-05 14:05] LABS: Alanine Aminotransferase 18 U/L (12-78); Albumin Level 3.4 g/dl (3.5-5.0); Albumin/Globulin Ratio 1.2 (1.1-1.8); Alkaline Phosphatase 95 U/L (38-126); Anion Gap 11.6 mEq/L (5-15); Aspartate Amino Transferase 47 U/L (17-59); Bilirubin,Total 0.6 mg/dl (0.2-1.3); Blood Urea Nitrogen 10 mg/dl (9-20); Calcium 8.7 mg/dl (8.4-10.2); Carbon Dioxide 30 mmol/L (22.0-30.0); Chloride 100 mmol/L (98-107); Estimated Glomerular Filt Rate 85 ml/min (>60); GFR (African American) 103 ML/MIN (>60); Globulin 2.8 g/dL (1.3-3.2); Glucose 88 mg/dl (74-100); Lactate Dehydrogenase 375 U/L (313-618); Potassium 4.6 mmoL/L (3.5-5.1); Sodium 137 mmol/L (136-145); Total Protein,Serum 6.2 g/dl (6.3-8.2)
[2023-03-05 14:36] LABS: Prostate Specific Ag Screen 0.7 ng/ml (0.0-4.0)
[2023-03-05 15:12] LABS: Vitamin B12 599 pg/mL (239-931)
[2023-03-05 16:08] LABS: Iron 78 ug/dL (49-181)
[2023-03-05 16:17] LABS: Total Iron Binding Capacity 260 ug/dL (261-462)
[2023-03-05 16:43] LABS: Ferritin 103 ng/ml (17.9-464)
[2023-03-06 14:34] LABS: Haptoglobin 264 mg/dL (32-363)
[2023-03-06 16:03] LABS: Anti-Cardiolipin Antibody IgG <9 GPL U/mL (0-14)
[2023-03-08 04:09] LABS: Beta-2 Glycoprotein I Ab, IgA <9 (0-25)
[2023-03-08 06:13] LABS: Protein C Antigen 89 % (60-150)
[2023-03-09 14:23] LABS: Anti-Thrombin III Antigen 96 % (72-124); Protein S Antigen, Total 92 % (60-150); Protein S, Free 87 % (61-136)
== END ==
PROVIDERS: PCP Emergency Medicine; Visit Provider Internal Medicine Medical Oncology
DX: D50.9 Iron deficiency anemia, unspecified (principal); Z12.5 Encounter for screening for malignant neoplasm of prostate; I82.402 Acute embolism and thrombosis of unspecified deep veins of left lower extremity; I26.99 Other pulmonary embolism without acute cor pulmonale
CPT/HCPCS: 80053; 81240; 81241; 82607; 82728; 82746; 83010; 83540; 83550; 83615; 85025; 85044; 85301; 85302; 85305; 85306; 86146; 86147; 86880; G0103

== ENCOUNTER → 2023-03-20 13:47 | Outpatient (POV) | payer MEDICARE, OTHER, SELFPAY ==
--- NOTE | 2023-03-20 14:11 | EXP.PAIN.SOA ---
[facility] Pain Management SOAP Note Subjective:: Patient is a pleasant 62-year-old male who presents today for medication refill and follow-up. We are currently treating the patient for degenerative disc disease of lumbar spine with lumbar radiculopathy symptoms, bilateral hip pain, bilateral sacroiliitis. Today he rates his pain a 6 out of 10. Patient states from our last visit he did have a upper respiratory infection that he was getting over and was at home with a friend when he started experiencing worsening shortness of breath and pain when he breathes and. Patient stated that this went through a few different episodes before determining that they needed to call for an ambulance. Patient states he ended up being evaluated and brought to the ER where he was diagnosed with multiple blood clots to his lungs. He states he stayed in the hospital approximately 3 days and is now on a blood thinner daily. Patient states that they do not know what caused his blood clots. He states today he is feeling better. Patient is currently managed with gabapentin 600 mg 3 times a day and tramadol 50 mg 3 times a day. He denies any side effects from this medication. His Cuauhtemoc has been reviewed and is appropriate. Review of Systems: General: No recent weight changes, no fever, no sleep disturbances Respiratory: No cough, no shortness of air, no recurring pulmonary infections Cardiovascular/peripheral vascular: No chest pain, no palpitations, no edema, no shortness of breath Gastrointestinal: No new onset incontinence, normal bowel movements reported Genitourinary: No new onset incontinence Musculoskeletal: Low back pain Psychiatric: [Normal mood/affect] Neurological: [Denies weakness in extremities], [denies balance issues] Objective:: Physical Exam: General: Alert and oriented x3, no acute distress, pleasant and cooperative Lungs: Respirations even and unlabored, symmetrical chest expansion Eyes: PERRL Musculoskeletal: Flexion and extension of lumbar [spine] somewhat guarded secondary to pain, [antalgic gait noted] Neurological: Speech clear, no gross sensory deficit Assessment:: Degenerative disc disease of lumbar spine with lumbar radiculopathy symptoms, bilateral hip pain, bilateral sacroiliitis Plan:: I will refill the patient's gabapentin 600 mg 3 times a day and tramadol 50 mg 3 times a day and provide a 2-month supply of this medication. Patient will return to clinic in 2 months for reevaluation of symptoms and plan of care. Patient has been advised of risks of oversedation with the prescribed medication. Narcan has been offered to the patient in the event of oversedation. Patient has been advised that a family member should also be educated regarding administration of Narcan. Patient has been instructed to contact the clinic with any concerns before the next appointment. Dr. Be has reviewed this note and agrees with this plan of care. This note was dictated using voice recognition software and make contain errors or omissions. [facility] Disclaimer: The information contained in this section may have been updated after the patient was seen, as this information can be updated by other users. Medical History Anxiety and depression Chronic pain COPD (chronic obstructive pulmonary disease) COPD (chronic obstructive pulmonary disease) Dysphagia Dyspnea on exertion Encounter for screening for malignant neoplasm of lung in former smoker who quit in past 15 years with 30 pack year history or greater Heartburn Hyperlipidemia Insomnia Polyarthralgia Pulmonary emphysema Smoking greater than 30 pack years Tobacco abuse counseling Tobacco abuse disorder Surgical History History of carpal tunnel release History of total hip replacement Family History Other No significant family history Social Hi
[2023-03-20 14:53] VITALS: BP 124/74; PULSE 80; RESP 18; O2SAT 97; BMI 18.4
== END | disposition home or self-care (01) ==
PROVIDERS: PCP Emergency Medicine; Visit Provider Nurse Practitioner Family
DX: M51.16 Intervertebral disc disorders with radiculopathy, lumbar region (principal); M25.551 Pain in right hip; M25.552 Pain in left hip; M46.1 Sacroiliitis, not elsewhere classified
CPT/HCPCS: 99212; G0463

== ENCOUNTER → 2023-04-01 13:47 | Outpatient (CLI) | payer MEDICARE, OTHER, SELFPAY ==
[2023-04-02 15:10] LABS: Anticardiolipin Ab,IgA,Qn <9 APL U/mL (0-11)
[2023-04-03 06:13] LABS: Beta-2 Glycoprotein I Ab, IgG <9 (0-20); Beta-2 Glycoprotein I Ab, IgM <9 (0-32)
== END ==
PROVIDERS: PCP Internal Medicine; Visit Provider Internal Medicine Medical Oncology
DX: I26.99 Other pulmonary embolism without acute cor pulmonale (principal)
CPT/HCPCS: 36415; 86146; 86147

== ENCOUNTER → 2023-05-15 12:59 | Outpatient (POV) | payer MEDICARE, SELFPAY ==
--- NOTE | 2023-05-15 13:07 | A.OFFVIS_ITS ---
[facility] Pain Management SOAP Note Subjective:: Patient is a pleasant 62-year-old male who presents today for medication refill and follow-up. We are currently treating the patient for degenerative disc disease of lumbar spine with lumbar radiculopathy symptoms, bilateral hip pain, bilateral sacroiliitis. Today he rates his pain a 2 out of 10. Patient denies any new trauma or injury from our last visit. He states he has continued to do better from our last visit regarding his respiratory infection. Patient states he does have 2 inhalers that he can use as needed when he has increased shortness of breath or trouble. He does state that he is doing well currently on his blood thinner with no side effects. Patient states he has no other additional updates regarding his blood clots that he was diagnosed with at the last visit. Patient is currently managed with gabapentin 600 mg 3 times a day and tramadol 50 mg 3 times a day. He denies any side effects from this medication. His Cuauhtemoc has been reviewed and is appropriate. Review of Systems: General: No recent weight changes, no fever, no sleep disturbances Respiratory: No cough, no shortness of air, no recurring pulmonary infections Cardiovascular/peripheral vascular: No chest pain, no palpitations, no edema, no shortness of breath Gastrointestinal: No new onset incontinence, normal bowel movements reported Genitourinary: No new onset incontinence Musculoskeletal: Low back pain Psychiatric: [Normal mood/affect] Neurological: [Denies weakness in extremities], [denies balance issues] Objective:: Physical Exam: General: Alert and oriented x3, no acute distress, pleasant and cooperative Lungs: Respirations even and unlabored, symmetrical chest expansion Eyes: PERRL Musculoskeletal: Flexion and extension of lumbar [spine] somewhat guarded secondary to pain, [antalgic gait noted] Neurological: Speech clear, no gross sensory deficit Assessment:: Degenerative disc disease of lumbar spine with lumbar radiculopathy symptoms, bilateral hip pain, bilateral sacroiliitis Plan:: I will refill the patient's gabapentin 600 mg 3 times a day and tramadol 50 mg 3 times a day and provide a 1 month supply of this medication. Patient will return to clinic in 2 months for reevaluation of symptoms and plan of care. Patient has been advised of risks of oversedation with the prescribed medication. Narcan has been offered to the patient in the event of oversedation. Patient has been advised that a family member should also be educated regarding administration of Narcan. Patient has been instructed to contact the clinic with any concerns before the next appointment. Dr. Be has reviewed this note and agrees with this plan of care. This note was dictated using voice recognition software and make contain errors or omissions. [facility] Disclaimer: The information contained in this section may have been updated after the patient was seen, as this information can be updated by other users. Medical History Anxiety and depression Chronic pain COPD (chronic obstructive pulmonary disease) COPD (chronic obstructive pulmonary disease) Dysphagia Dyspnea on exertion Encounter for screening for malignant neoplasm of lung in former smoker who quit in past 15 years with 30 pack year history or greater Heartburn Hyperlipidemia Insomnia Polyarthralgia Pulmonary emphysema Smoking greater than 30 pack years Tobacco abuse counseling Tobacco abuse disorder Surgical History History of carpal tunnel release History of total hip replacement Family History Other No significant family history Social History Smoking Status: Current every day smoker tobacco type: cigarettes packs per day: 1 alcohol intake: current substance use type: former substance user current occupational status: unemployed Travel in the last 8 weeks: None household members: family housing: house current occupational exposures/hazards: No caffeine: Yes
[2023-05-15 15:04] VITALS: BP 125/72; PULSE 99; RESP 18; O2SAT 96; BMI 18.4
== END | disposition home or self-care (01) ==
PROVIDERS: PCP Internal Medicine; Visit Provider Nurse Practitioner Family
DX: M51.16 Intervertebral disc disorders with radiculopathy, lumbar region (principal); M25.551 Pain in right hip; M25.552 Pain in left hip; M46.1 Sacroiliitis, not elsewhere classified
CPT/HCPCS: 99212; G0463

== ENCOUNTER 2023-06-10 09:54 | Outpatient (CLI) | payer MEDICARE, OTHER, SELFPAY ==
[2023-06-10 10:45] VITALS: PULSE 85; PULSE 92
[2023-06-10] MEDS: ALBUTEROL 0.083% 2.5 MG/3 ML NEB IH (10:45)
== END 2023-06-10 23:59 ==
LOC: RT 09:54
PROVIDERS: PCP Internal Medicine; Visit Provider Nurse Practitioner Family
DX: R06.02 Shortness of breath (principal); J44.9 Chronic obstructive pulmonary disease, unspecified; F17.210 Nicotine dependence, cigarettes, uncomplicated
CPT/HCPCS: 94060; 94618; 94640; 94726; 94729

== ENCOUNTER 2023-06-28 07:21 | Outpatient (CLI) | payer MEDICARE, OTHER, SELFPAY ==
--- NOTE | 2023-06-28 | CA_ITS ---
APPROVED REPORT Exam: Pharmacologic Technologist: Amber Jon, Ht: 5 ft 9 in Wt: 124 lbs BSA: 1.69 m2 HR: 73 bpm BP: 123/65 mmHg Rhythm: NSR, PAC Medical History Medical History: Hyperlipidemia, Smoking Medications: Gabapentin,,,,, Flonase,,,,, Albuterol,,,,, Tramadol,,,,, Vit D3,,,,, Famotidine,,,,, RIvaROXABAN,,,,, Vit D2,,,,, ANora ELIPTA,,,,, Allergies: No known drug allergies Cardiac Risk Factors: , Smoking Stress Test Details Test: LEXISCAN HR Resting HR: 84 bpm Max Heart Rate (APMHR): 157 bpm Max HR Achieved: 121 bpm Target HR (85% APMHR): 133 bpm % of APMHR: 77 Recovery HR: 107 bpm BP Resting BP: 123/65 mmHg Max BP: 128/84 mmHg Recovery BP: 124.0/81.0 mmHg ECG Resting ECG: NSR, PAC Stress ECG: No significant ST changes none Clinical Exercise duration: 04:01 min Highest Stage Achieved: Exercise capacity: 1.0 METs Stress ECG Conclusion PT HAD MILD CHEST TIGHTNESS, SOA, AND STOMACH DISCOMFORT NO SIGNIFICANT ST CHANGES UNREMARKABLE LEXISCAN STRESS MYOVIEW IMAGES REPORTED SEPARATELY Test Summary REST 03:58 . . 84 . 123/ 65 . . Stage 1 01:00 . . 110 . . . . Stage 2 01:00 . . 120 . 123/ 67 . . Stage 3 01:00 . . 119 . 127/ 77 . . Stage 4 01:00 . . 115 . 125/ 83 . . Stage 4 01:01 . . 115 . 125/ 83 . Stop exercise at 04:01 RECOVERY 01:00 . . 115 . . . . RECOVERY 02:00 . . 107 . 128/ 84 . . RECOVERY 03:00 . . 107 . 124/ 81 . . RECOVERY 03:16 . . 111 . 124/ 81 . . Electronically signed by : Kylie Kiser MD 06/30/2023 01:14:35
--- NOTE | 2023-06-28 07:22 | NM_ITS ---
APPROVED REPORT Exam: Nuclear Stress Test Indication: soa..fatigue Patient Location: Outpatient Stress Tech: Amber Jon CO Tech:Kristine Lopez TINJessica RT(R)(N) Ht: 5 ft 9 in Wt: 125 lbs HR: 84 bpm BP: 123/65 mmHg BSA: 1.69 m2 Rhythm: NSR TID: 1.29 BMI: 18.4 History: soa..fatigue Procedure: Patient received 0.4 mg of intravenous 1, resting heart rate 84 bpm, resting blood pressure 123/65 mmHg, with Lexiscan maximum heart rate achieved was 121 bpm which is 85 % of the maximum predicted heart rate and blood pressure was 128/84 mmHg. With Lexiscan, patient denied any complaint of chest pain. Cardiac Stress and Resting SPECT Images: Cardiac Stress and Resting SPECT images were obtained using technetium 99m Myoview 31.8 mCi stress and 10.78 mCi at rest. Resting and stress imaging in supine and prone positions demonstrate no evidence of focal fixed or reversible perfusion defects. There is increased transient ischemic dilatation ratio (TID 1.29), suggestive of possible multivessel disease or balanced ischemia. Gated imaging demonstrates low normal global and regional LV systolic function. LVEF is calculated at 52%. Conclusion: No evidence of focal fixed or reversible perfusion defects. There is increased transient ischemic dilatation ratio (TID 1.29), suggestive of possible multivessel disease or balanced ischemia. Gated imaging demonstrates low normal global and regional LV systolic function. LVEF is calculated at 52%. Electronically signed by : Kylie Kiser MD 06/30/2023 01:16:32
--- NOTE | 2023-06-28 07:36 | CA_ITS ---
APPROVED REPORT EXAM: Comprehensive 2D, Doppler, and color-flow Echocardiogram Ammonium Hydroxide Operator: Cecy Sosa RDCS Ht: 5 ft 9 in Wt: 128lbs BSA: 1.71 BP: 139/87 mmHg Indications: SOA,H/O PE,SMOKER TDS SECONDARY COPD, LOW ACCESS ON ALL IMAGES M-Mode Dimensions RVDd 0.81 cm (0.9-2.6) LA Diam 1.88 cm (1.9-4.0) LVDd 3.77 cm (3.5-5.7) LVDs 2.40 cm (3.5-5.7) IVSd 1.00 cm (0.6-1.1) PWd 1.03 cm (0.6-1.1) EF (Teich) 66.80% FS 36.30% EDV (Teich) 60.80 mL ESV (Teich) 20.20 mL LV Diastology E Decel Time 220 (160-240 msec) E/A Ratio 0.8 Mitral Valve MV E Max Kg. 53.0 (40-130 cm/s) MV A Velocity 67.0 (40-130 cm/s) E/A Ratio 0.78 MV PHT 64.0 ms Left Ventricle The left ventricle is normal size. The left ventricular systolic function is normal. The left ventricular ejection fraction is within the normal range. There is increased LV wall thickness. There is normal LV segmental wall motion. Transmitral Doppler flow pattern suggests impaired LV relaxation. LVEF is 55%. Right Ventricle The right ventricle is normal size. The right ventricular systolic function is normal. Atria The left atrium size is normal. The right atrium size is normal. There is no Doppler evidence of interatrial shunt. Aortic Valve The aortic valve is mildly thickened. There is no aortic valvular stenosis. No aortic regurgitation is present. Mitral Valve The mitral valve leaflets are mildly thickened. No evidence of mitral valve stenosis. Trace mitral regurgitation. Tricuspid Valve The tricuspid valve leaflets are thin and pliable. Trace tricuspid regurgitation. There is insufficient TR jet to estimate RVSP. Pulmonic Valve The pulmonary valve is normal in structure. Mild pulmonic regurgitation. Great Vessels The aortic root is borderline dilated, measuring 4.2 cm in diameter. The ascending aorta is not well-visualized. IVC is normal in size and collapses >50% with inspiration. Pericardium There is no pericardial effusion. Other Information Study Quality: Fair Conclusion Normal LV systolic function. The right ventricle is normal in size and function. No significant valvular stenosis or regurgitation. The aortic root is borderline dilated, measuring 4.2 cm in diameter. Compared to prior study from 02/2023, the RV now appears normal in size and function (improved). In the setting of borderline aortic root dilation, correlation with CTA chest is recommended. Electronically signed by : Kylie Kiser MD 07/01/2023 21:40:40
[2023-06-28] MEDS: REGADENOSON 0.4MG/5ML SYRINGE 0.400000000000000022 MG IV (09:49)
[2023-06-28] MEDS: SODIUM CHLORIDE 0.9% 10ML SYR (RAD ONLY) 10 ML IV ×2 (09:51)
[2023-06-28] MEDS: ISOTOPE MYOVIEW (PER STUDY) 1 DOSE IV (09:51)
== END 2023-06-28 23:59 ==
PROVIDERS: PCP Nurse Practitioner Family; Visit Provider Physician Assistant
DX: R06.00 Dyspnea, unspecified (principal); E78.5 Hyperlipidemia, unspecified; J44.9 Chronic obstructive pulmonary disease, unspecified; F17.210 Nicotine dependence, cigarettes, uncomplicated; Z86.711 Personal history of pulmonary embolism
CPT/HCPCS: 78452; 93017; 93018; 93306; A9502; J2785

== ENCOUNTER 2023-09-13 11:06 | Outpatient (POV) | payer MEDICARE, OTHER, SELFPAY ==
[2023-09-13 11:13] VITALS: BP 140/92; PULSE 116; RESP 18; O2SAT 95; BMI 18.4
--- NOTE | 2023-09-13 11:18 | EXP.PAIN.SOA ---
[facility] Pain Management SOAP Note Subjective:: Patient is a pleasant 62-year-old male who presents today for medication refill and follow-up. Today he rates his pain a 7 out of 10. Patient denies any new trauma or injury. He denies any new respiratory issues from our last visit. Patient is currently managed with gabapentin 600 mg 3 times a day and tramadol 50 mg 3 times a day. He denies any side effects from this medication. His Cuauhtemoc has been reviewed and is appropriate. Review of Systems: General: No recent weight changes, no fever, no sleep disturbances Respiratory: No cough, no shortness of air, no recurring pulmonary infections Cardiovascular/peripheral vascular: No chest pain, no palpitations, no edema, no shortness of breath Gastrointestinal: No new onset incontinence, normal bowel movements reported Genitourinary: No new onset incontinence Musculoskeletal: Low back pain Psychiatric: [Normal mood/affect] Neurological: [Denies weakness in extremities], [denies balance issues] Objective:: Physical Exam: General: Alert and oriented x3, no acute distress, pleasant and cooperative Lungs: Respirations even and unlabored, symmetrical chest expansion Eyes: PERRL Musculoskeletal: Flexion and extension of lumbar [spine] somewhat guarded secondary to pain, [antalgic gait noted] Neurological: Speech clear, no gross sensory deficit Assessment:: Degenerative disc disease of lumbar spine with lumbar radiculopathy symptoms, bilateral hip pain, sacroiliitis Plan:: I will refill the patient's gabapentin and tramadol provide a 3-month supply of this medication. Patient will return to clinic in 3 months for reevaluation of symptoms and plan of care. Risks and benefits of the medication have been explained in detail to the patient. The patient does understand the risk of dependence on the medication when given over a prolonged period. Patient has been advised of risks of oversedation with the prescribed medication. Narcan has been offered to the paitent in the event of oversedation. Patient has been advised that a family member should also be educated regarding administration of Narcan. The patient has been advised to consult with his/her primary care provider and pharmacist regarding drug-drug interaction of medications currently prescribed. Patient has been prescribed a controlled substance after being counseled on the medication, medication safety, and possible side effects. Opioid contract was reviewed and signed by the patient, and that they have agreed to all of the terms set forth by our compliance program. Patient has been instructed to contact the clinic with any concerns before the next appointment. Dr. Be has reviewed this note and agrees with this plan of care. This note was dictated using voice recognition software and make contain errors or omissions. [facility] Disclaimer: The information contained in this section may have been updated after the patient was seen, as this information can be updated by other users. Medical History Anxiety and depression Chronic pain COPD (chronic obstructive pulmonary disease) COPD (chronic obstructive pulmonary disease) Dysphagia Dyspnea on exertion Encounter for screening for malignant neoplasm of lung in former smoker who quit in past 15 years with 30 pack year history or greater Heartburn Hyperlipidemia Insomnia Polyarthralgia Pulmonary emphysema Smoking greater than 30 pack years Tobacco abuse counseling Tobacco abuse disorder Surgical History History of carpal tunnel release History of total hip replacement Family History Other No significant family history Social History Smoking Status: Current every day smoker tobacco type: cigarettes packs per day: 1 alcohol intake: current alcohol intake frequency: a few times a week substance use type: former substance user current occupational status: unemployed Travel in the last 8 weeks: None household members: family housing: house current occupational exposures/hazards: No caffeine: Yes
== END 2023-09-13 23:59 | disposition home or self-care (01) ==
PROVIDERS: PCP Internal Medicine; Visit Provider Nurse Practitioner Family
DX: M51.16 Intervertebral disc disorders with radiculopathy, lumbar region (principal); M25.551 Pain in right hip; M25.552 Pain in left hip; M46.1 Sacroiliitis, not elsewhere classified
CPT/HCPCS: 99212; G0463

== ENCOUNTER 2023-10-15 11:44 | Outpatient (CLI) | payer MEDICARE, MEDICAID, SELFPAY ==
--- NOTE | 2023-10-15 11:45 | CT_ITS ---
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 A noncontrast coronary calcium scan was performed. A CT attenuation threshold of 130 Hounsfield units (HU) was used for the detection of calcium in contiguous voxels of 1 sq mm in area to be counted as individual lesions. Bolus tracking in the ascending aorta with a threshold of 180 HU was performed. Immediately afterwards, ECG synchronized cardiac CT was then performed from the cardiac base to apex using retrospective gating with ECG tube current modulation. A total of 85 mL of Isovue 370 mg/mL contrast medium was administered at 5 mL/sec followed by a saline flush using a biphasic injection protocol. A tube voltage of 120 KVp was used. The patient received the following medications prior to the cardiac CT. 125 mg of oral metoprolol 15 mg of oral ivabradine 0.8 mg of sublingual nitroglycerin The average heart rate at the time of acquisition was 57 bpm and regular. Image Reconstruction Transaxial images were reconstructed at 0.67 mm slide thickness. Data was reviewed interactively on an advanced workstation capable of 2 and 3-dimensional displays in all conventional reconstruction formats, including multiplanar reformations, maximum intensity projections, curved multiplanar reformations, and volume rendered reconstructions. When applicable, selected routine images describing the relevant coronary anatomy and pathology were saved and sent to PACS. Complications None Technical Quality Overall image quality was good. Coronary artery opacification was adequate. Total DLP (Dose-Length Product) is 1742.6 mGy-cm. The reported value represents the total of one or more individual components during the CT acquisition of this date and at this time, and as such, the same value may appear in more than one CT report depending on the interpreting/reporting physicians. COMPARISON None FINDINGS CT Coronary Calcium Scoring LMA (Left Main Artery) = 0 LAD (Left Anterior Descending) = 64 LCX (Left Coronary Circumflex) = 31 RCA (Right Coronary Artery) = 0 Total Calcium Score = 95 using the AJ-130 method. The observed calcium score of 95 is at 18th percentile for subjects of the same age, sex, and race/ethnicity. The interpretation of the calcium heart score is based on the following continuum*: 0 = no calcified plaque detected (risk of coronary artery disease is very low ??? less than 5%) 1-10 = calcium detected in extremely minimal levels (risk of coronary diseases is still low ??? less than 10%) 11-100 = mild levels of plaque detected with certainty (mild or minimal narrowing of heart arteries is likely) 101-400 = definite,at least moderate levels of plaque detected (relatively high risk of a heart attack within 3-5 years) >401-999 = extensive levels of plaque detected (high risk of heart attack, high levels of vascular disease are present, high likelihood of at least one significant coronary narrowing) *The calcium heart score quantifies the burden of coronary calcification/plaque in the coronary arteries. The calcium heart score is not able to evaluate the presence or burden of non-calcified (i.e. soft) plaque. There is also identifiable calcification in the ascending and descending thoracic aorta. Coronary CT Angiography The coronary arterial system is right dominant. Quantitative Stenosis Grading: Left Main (LM): The left main originates normally from the left sinus of Valsalva. The LM trifurcates into the left anterior descending artery. ramus intermedisu, and left circumflex artery. The LM is patent with no evidence of atherosclerosis. Left Anterior Descending (LAD) and Diagonal Branches: The LAD gives off 3 diagonal branch(es). There is mixed calcified/noncalcified plaque in the proximal LAD segment, with up to 50-70% luminal stenosis. There is no evidence of LAD-myocardial bridge. Ramus-intermedius (RI): The RI is patent. Left Circumflex (LCX) and Obtuse Marginals (OM): The LCX gives off 1 Obtuse Marginal (OM) branch(es). There is mixed calcified/noncalcified plaque in the ostial and proximal LCx, with up to 50-70% luminal stenosis. Right Coronary Artery (RCA): The RCA originates normally from the right sinus of Valsalva. The RCA gives off a posterior descending artery (PDA) and posterolateral (PL) branches. The RCA and its branches are patent with no evidence of atherosclerosis. Non-Coronary Cardiac Findings: Analysis of the left ventricular (LV) structure and function was performed after 3-D reconstruction of the LV from axial images, with user-corrected automatic contouring for assessment of LV volumes and user-defined reconstruction from oblique planes for measurement of 3-D cardiac structure and function. -The left ventricle systolic function is normal. -There is no left atrial appendage filling defect. Two right pulmonary veins and two left pulmonary veins drain normally into the left atrium. -No pericardial thickening or calcification. -Central and branch pulmonary arteries in the [id number] are unremarkable. -Thoracic aorta within the visualized thoracic aortic-branches in the [id number] is unremarkable. Extracardiac Structures No significant extra-cardiac findings. Note, however, that this study is focused on the cardiac findings. IMPRESSION -Presence of coronary calcification with an Agatston score = 95 using the AJ-130 method. -The observed calcium score of 95 is at 18th percentile for subjects of the same age, sex, and race/ethnicity. -Multivessel atherosclerotic plaque with possible evidence of significant flow-limiting atherosclerosis of the ostial LCx and proximal LAD segments. -CAD-RADS 3. Management recommendations per ACC/AHA guidelines*, as clinically appropriate. -Mild calcification noted in the ascending and descending thoracic aorta. *Recommendations: CAD RADS 0: Reassurance. Consider non-atherosclerotic causes of chest pain. CAD RADS 1: Consider non-atherosclerotic causes of chest pain. Consider preventive therapy and risk factor modification. CAD RADS 2: Consider non-atherosclerotic causes of chest pain. Consider preventive therapy and risk factor modification, particularly for patients with nonobstructive plaque in multiple segments. CAD RADS 3: Consider further functional testing. Consider symptom-guided anti-ischemic and preventive pharmacotherapy as well as risk factor modification per published guideline statements. CAD RADS 4A: Consider further functional testing or invasive coronary angiography with revascularization per published guideline statements. Consider symptom-guided anti-ischemic and preventive pharmacotherapy as well as risk factor modification per published guideline statements. CAD RADS 4B: Invasive coronary angiography recommended with revascularization per published guideline statements. Consider symptom-guided anti-ischemic and preventive pharmacotherapy as well as risk factor modification per published guideline statements. CAD RADS 5: Consider invasive angiography and/or viability assessment with revascularization per published guideline statements. Consider symptom-guided anti-ischemic and preventive pharmacotherapy as well as risk factor modification per published guideline statements. CRITICAL RESULT None COMMUNICATION Per this written report The coronary and cardiac findings of this CCTA were reviewed, reported, and signed by Nicholas Ksier MD (Director Stars) Conclusion Electronically signed by : Kylie Kiser MD 10/17/2023 12:55:17
[2023-10-15 12:03] VITALS: BMI 17.7
[2023-10-15 12:10] VITALS: BP 129/72; PULSE 89; RESP 18; O2SAT 98
[2023-10-15] MEDS: IVABRADINE HCL 7.5MG TABLET *IVABRADINE+METOPROLOL REGIMINE 15 MG PO (12:12)
[2023-10-15] MEDS: METOPROLOL TARTRATE 50MG TABLET *IVABRADINE+METOPROLOL REGIMINE 75 MG PO (12:13)
[2023-10-15 12:37] LABS: Chloride 103 mmol/L (98-107); Potassium 4.4 mmoL/L (3.5-5.1); Sodium 138 mmol/L (136-145)
[2023-10-15 12:40] LABS: Anion Gap 8.4 mEq/L (5-15); Blood Urea Nitrogen 7 mg/dl (9-20); Carbon Dioxide 31 mmol/L (22.0-30.0); Creatinine Clearance Estimated 58 mL/min (50-200); Estimated Glomerular Filt Rate 98 ml/min (>60); GFR (African American) 118 ML/MIN (>60); Glucose 91 mg/dl (74-100)
[2023-10-15 12:41] LABS: Calcium 9.5 mg/dl (8.4-10.2)
[2023-10-15 12:58] VITALS: BP 113/61; PULSE 68; RESP 18; O2SAT 98
[2023-10-15] MEDS: METOPROLOL TARTRATE 50MG TABLET *IVABRADINE+METOPROLOL REGIMINE 50 MG PO (12:59)
[2023-10-15 13:20] VITALS: BP 123/72; PULSE 62; RESP 18; O2SAT 97
[2023-10-15] MEDS: NITROGLYCERIN 0.4MG SL TABLET 0.8 MG SL (13:20)
[2023-10-15 13:25] VITALS: BP 94/60; PULSE 62; RESP 18; O2SAT 98
[2023-10-15 13:30] VITALS: BP 93/54; PULSE 60; RESP 18; O2SAT 98
[2023-10-15] MEDS: 0.9 % SODIUM CHLORIDE 50 ML VIAL IV (13:36)
[2023-10-15] MEDS: IOPAMIDOL-370 (76%);100ML BOTTLE 85 ML IV (13:36)
[2023-10-15] MEDS: SODIUM CHLORIDE 0.9% 10ML SYR (RAD ONLY) 10 ML IV (13:36)
== END 2023-10-15 23:59 | disposition home or self-care (01) ==
PROVIDERS: PCP Internal Medicine; Visit Provider Physician Assistant
DX: R06.09 Other forms of dyspnea (principal); R94.39 Abnormal result of other cardiovascular function study; F17.210 Nicotine dependence, cigarettes, uncomplicated
CPT/HCPCS: 75574; 80048; Q9967

== ENCOUNTER 2023-11-29 08:14 | Day surgery (SDC) | payer MEDICARE, MEDICAID, SELFPAY ==
[2023-11-29] VITALS (18 sets, daily range): BP systolic 94–161; BP diastolic 56–90; PULSE 47–87; RESP 17–19; TEMP 36.9; O2SAT 95–98; BMI 17.2
--- NOTE | 2023-11-29 06:59 | IR_ITS ---
APPROVED REPORT Patient Location: Outpatient Legal Specialist: WILBUR Jang RT (R) PROCEDURES Left heart catheterization Left ventriculogram Selective coronary angiography INDICATION Abnormal CCTA, Coronary artery disease, Angina pectoris Informed consent was obtained prior to the procedure. COMPLICATIONS None Estimated Blood Loss: Less than 10 mls TECHNIQUE One percent lidocaine was used to anesthetize the right groin. The right femoral artery was accessed via the Seldinger technique. A 4-Nepali sheath was placed in the right femoral artery. The JL-4 and JR-4 catheter was also used to perform left heart catheterization left ventriculogram and selective coronary angiogram. At the end of the procedure the patient was transferred to the post-op holding area in stable condition for arterial sheath removal. ANGIOGRAPHIC RESULTS The left main artery Small with tapering 10 to 20% distal stenosis The left anterior descending artery Has a smooth ostial 10 to 20% stenosis with remaining vessel having an eccentric 10 to 20% stenosis otherwise widely patent The circumflex artery Mild diffuse 10 to 20% luminal irregularities The right coronary artery Dominant with proximal to mid vessel smooth 10 to 20% luminal regularities The GOMEZ ventriculogram reveals Normal 65% The left ventricular end-diastolic pressure 10 mmHg IMPRESSION Mild nonflow limiting coronary artery disease Normal ejection fraction Normal LVEDP PLAN 1. Continue medical management with risk factor modification Electronically signed by : Rodolfo Mattson MD 11/29/2023 12:46:30
[2023-11-29 08:43] LABS: Basophils # 0.1 K/mm3 (0-0.2); Basophils % 0.8 % (0.1-2.0); Eosinophils # 0.3 K/mm3 (0.0-0.4); Hematocrit 54.2 % (42.0-52.0); Hemoglobin 17.1 g/dL (14.1-18.0); Lymphocytes # 1.4 K/mm3 (0.7-4.5); Lymphocytes % 21.9 % (10-50); Mean Corpuscular HGB Conc 31.5 g/dL (31.8-35.4); Mean Corpuscular Hemoglobin 31.6 pg (27.0-31.2); Mean Corpuscular Volume 100.3 fl (80-94); Mean Platelet Volume 7.3 fl (7.4-10.4); Monocytes # 0.5 K/mm3 (0.1-1.0); Monocytes % 7.9 % (1.7-9.3); Neutrophils # 4.1 K/mm3 (1.8-7.8); Neutrophils % 65.4 % (37.0-80.0); Platelet Count 425 K/mm3 (142-424); Red Cell Distribution Width 13.4 % (11.5-17.5); White Blood Count 6.3 K/mm3 (4.8-10.8)
[2023-11-29 09:15] LABS: Chloride 109 mmol/L (98-107)
[2023-11-29 09:16] LABS: Potassium 3.5 mmoL/L (3.5-5.1); Sodium 139 mmol/L (136-145)
[2023-11-29 09:18] LABS: Blood Urea Nitrogen 10 mg/dl (9-20); Creatinine Clearance Estimated 57 mL/min (50-200); Estimated Glomerular Filt Rate 85 ml/min (>60); GFR (African American) 103 ML/MIN (>60)
[2023-11-29 09:19] LABS: Anion Gap 3.5 mEq/L (5-15); Calcium 8.7 mg/dl (8.4-10.2); Carbon Dioxide 30 mmol/L (22.0-30.0); Glucose 94 mg/dl (74-100)
[2023-11-29] MEDS: HEPARIN 1,000 UNITS/ML 10ML VIAL (CATH LAB) 10000 UNIT IV (09:56)
[2023-11-29] MEDS: LIDOCAINE 1% 10ML MDV 20 ML IJ (09:56)
[2023-11-29] MEDS: VERAPAMIL 2.5MG/ML 2ML VIAL 2.5 MG IV (09:56)
[2023-11-29] MEDS: NITROGLYCERIN 800MCG/8ML SYR (CATH LAB) 800 MCG IA (09:57)
[2023-11-29] MEDS: 0.9 % SODIUM CHLORIDE 500 ML 25 ML IV (09:57)
[2023-11-29] MEDS: diphenhydrAMINE 50MG/ML VIAL 50 MG IV (09:58)
[2023-11-29] MEDS: FENTANYL 100MCG/2ML VIAL 50 MCG IV (10:33)
[2023-11-29] MEDS: MIDAZOLAM HCL 1MG/1ML 5ML VIAL 1 MG IV (10:34)
--- NOTE | 2023-11-29 11:46 | SUR.PHASEII ---
Went to access right groin post sheath pulled, bleeding noted to dressing, applied firm manual pressure for 10 minutes. New sterile dressing applied, Site is CDI, no hematoma or bleeding noted. Sandbag applied.
[2023-11-29] MEDS: IOPAMIDOL-370 (76%);100ML BOTTLE 50 ML IV (13:23)
== END 2023-11-29 14:18 | disposition home or self-care (01) ==
PROVIDERS: PCP Internal Medicine; Visit Provider Internal Medicine
DX: R94.39 Abnormal result of other cardiovascular function study (principal); Z79.01 Long term (current) use of anticoagulants; Z86.711 Personal history of pulmonary embolism; Z86.718 Personal history of other venous thrombosis and embolism; R06.09 Other forms of dyspnea; E78.5 Hyperlipidemia, unspecified; J44.9 Chronic obstructive pulmonary disease, unspecified; F17.210 Nicotine dependence, cigarettes, uncomplicated; R93.1 Abnormal findings on diagnostic imaging of heart and coronary circulation; I25.118 Atherosclerotic heart disease of native coronary artery with other forms of angina pectoris; Z79.899 Other long term (current) drug therapy; I10 Essential (primary) hypertension
CPT/HCPCS: 80048; 85025; 93458; 99152; C1725; C1769; J1200; J1644; J2250; J3010; Q9967

== ENCOUNTER 2023-12-12 13:37 | Outpatient (POV) | payer MEDICARE, MEDICAID, SELFPAY ==
--- NOTE | 2023-12-12 14:17 | A.OFFVIS_ITS ---
[facility] Disclaimer: The information contained in this section may have been updated after the patient was seen, as this information can be updated by other users. Medical History Coronary artery disease Aortic root dilation COPD (chronic obstructive pulmonary disease) Encounter for screening for malignant neoplasm of lung in former smoker who quit in past 15 years with 30 pack year history or greater Smoking greater than 30 pack years Dyspnea on exertion Tobacco abuse counseling Tobacco abuse disorder Pulmonary emphysema Insomnia Polyarthralgia Hyperlipidemia Heartburn Dysphagia Anxiety and depression Chronic pain COPD (chronic obstructive pulmonary disease) Surgical History History of carpal tunnel release History of total hip replacement Family History Other No significant family history Social History Smoking Status: Current every day smoker tobacco type: cigarettes packs per day: 1 alcohol intake: never substance use type: former substance user current occupational status: disabled Travel in the last 8 weeks: None household members: family housing: house current occupational exposures/hazards: No caffeine: Yes PM Subjective & Objective Subjective Subjective:: Patient is a pleasant 63-year-old male who presents today for medication refill and follow-up. Today he rates his pain an 8 out of 10. Patient states from her last visit he has ended up having to have a heart cath and states that overall everything looked good but they did mention some buildup. They are currently doing medications to see about this. He does state however he is scheduled for a CT of his heart coming up next month and that they are planning on doing additional labs to check his thyroid and other things. Patient is currently ma naged with gabapentin 600 mg 3 times a day and tramadol 50 mg 3 times a day. He denies any side effects from this medication. His Cuauhtemoc has been reviewed and is appropriate. Review of Systems: General: No recent weight changes, no fever, no sleep disturbances Respiratory: No cough, no shortness of air, no recurring pulmonary infections Cardiovascular/peripheral vascular: No chest pain, no palpitations, no edema, no shortness of breath Gastrointestinal: No new onset incontinence, normal bowel movements reported Genitourinary: No new onset incontinence Musculoskeletal: Low back pain, left ankle pain Psychiatric: [Normal mood/affect] Neurological: [Denies weakness in extremities], [denies balance issues] Pain at rest (0-10 scale): 8 Objective Objective:: Physical Exam: General: Alert and oriented x3, no acute distress, pleasant and cooperative Lungs: Respirations even and unlabored, symmetrical chest expansion Eyes: PERRL Musculoskeletal: Flexion and extension of lumbar [spine] somewhat guarded secondary to pain, [antalgic gait noted] Neurological: Speech clear, no gross sensory deficit Has patient had previous pain injection?: No Conservative treatment options previously tried: Home exercise plan Length of treatment: Longer than 6 weeks Meds Home Medications and Allergies Home Medications ?Medication ?Instructions ?Recorded ?Confirmed ?Type fluticasone propionate 50 1 spray intranasal DAILY #16 grams 01/16/23 12/12/23 Rx mcg/actuation nasal spray,suspension (Flonase Allergy Relief) albuterol sulfate 90 mcg/actuation 2 inh inhalation Q6HP PRN 02/26/23 12/12/23 History aerosol inhaler shortness of breath or wheezing albuterol sulfate 90 mcg/actuation 2 inh inhalation Q6H PRN shortness 03/05/23 12/12/23 Rx aerosol inhaler of breath or wheezing 90 days #8.5 grams ergocalciferol (vitamin D2) 1,250 See Rx Instructions .Route 05/09/23 12/10/23 Rx mcg (50,000 unit) capsule .COMPLEX #14 caps rivaroxaban 20 mg tablet (Xarelto) See Rx Instructions .Route 08/05/23 12/12/23 Rx .COMPLEX #90 tabs gabapentin 600 mg tablet 600 mg PO TID #90 tabs 09/13/23 12/12/23 Rx tramadol 50 mg tablet 50 mg PO TID Pain #90 tabs 09/13/23 12/12/23 Rx atorvastatin 10 mg tablet 10 mg PO DAILY 10/15/23 12/12/23 History amlodipine 5 mg tablet (Norvasc) 5 mg PO DAILY #30 tabs 10/22/23 12/12/23 Rx aspirin 81 mg tablet,delayed 81 mg PO DAILY #30 tabs 10/22/23 12/12/23 Rx release (Adult Aspirin Regimen) metoprolol succinate 25 mg 25 mg PO DAILY #30 tabs 10/22/23 12/12/23 Rx tablet,extended release 24 hr (Toprol XL) cholecalciferol (vitamin D3) 25 25 mcg PO DAILY #30 tabs 11/12/23 12/12/23 Rx mcg (1,000 unit) tablet famotidine 40 mg tablet See Rx Instructions .Route 11/12/23 12/12/23 Rx .COMPLEX #30 tabs tiotropium 2.5 mcg-olodaterol 2.5 2 puff inhalation DAILY 90 days #4 12/12/23 12/12/23 Rx mcg/actuation mist for inhalation grams (Stiolto Respimat) New Prescriptions to Start Prescriptions: Allergies Allergy/AdvReac Type Severity Reaction Status Date / Time No Known Allergies Allergy Verified 12/12/23 10:59 Assessment and Plan *Assessment and plan (1) Degenerative joint disease (DJD) of lumbar spine: Status: Chronic Category: Medical Code(s): M47.816 - Spondylosis without myelopathy or radiculopathy, lumbar region (2) Lumbar radiculopathy: Status: Chronic Category: Medical Code(s): M54.16 - Radiculopathy, lumbar region Plan I will refill the patient's gabapentin and tramadol and provide a 3-month supply of this medication. I will also order the patient a compounded cream to see if that does help his overall pains as well as his left ankle pain. Patient will return to clinic in 3 months for reevaluation of symptoms and plan of care. Patient has been instructed to contact the clinic with any concerns before the next appointment. Dr. Be has reviewed this note and agrees with this plan of care. This note was dictated using voice recognition software and make contain errors or omissions. All injections are used with Lidocaine or Bupivacaine and Depo Medrol.
[2023-12-12 14:43] VITALS: BP 105/63; PULSE 72; RESP 18; O2SAT 97; BMI 18.2
== END 2023-12-12 23:59 | disposition home or self-care (01) ==
PROVIDERS: PCP Nurse Practitioner Family; Visit Provider Nurse Practitioner Family
DX: M47.26 Other spondylosis with radiculopathy, lumbar region (principal); F17.210 Nicotine dependence, cigarettes, uncomplicated; Z79.01 Long term (current) use of anticoagulants; Z96.649 Presence of unspecified artificial hip joint
CPT/HCPCS: 99212; G0463

== ENCOUNTER 2023-12-19 12:53 | Outpatient (CLI) | payer MEDICARE, MEDICAID, SELFPAY ==
--- NOTE | 2023-12-19 | US_ITS ---
FINAL REPORT CLINICAL HISTORY: smoker, HTN, hyperlipidemia, previous angioplasty, bilateral rest pain, claudication. COMPARISON: None FINDINGS: ANKLE-BRACHIAL PRESSURE INDICES Pressure indices are as follows: RIGHT LOWER EXTREMITY: Ankle-brachial pressure index: 1.1 Comments: Normal LEFT LOWER EXTREMITY: Ankle-brachial pressure index: 1.0 Comments: Normal IMPRESSION: No evidence of significant obstructive peripheral vascular disease of the lower extremities Reviewed, Interpreted and Dictated by Mark Robison MD Transcribed by Daxa Tian Authenticated and [facility]
== END 2023-12-19 23:59 | disposition home or self-care (01) ==
LOC: RT 12:54
PROVIDERS: PCP Nurse Practitioner Family; Visit Provider Nurse Practitioner
DX: I77.810 Thoracic aortic ectasia (principal); I73.9 Peripheral vascular disease, unspecified; I25.10 Atherosclerotic heart disease of native coronary artery without angina pectoris
CPT/HCPCS: 93923

== ENCOUNTER → 2023-12-31 14:27 | Outpatient (CLI) | payer MEDICARE, MEDICAID, SELFPAY | LOC: SL 14:29 | PROVIDERS: PCP Nurse Practitioner Family; Visit Provider Nurse Practitioner | DX: G47.33 Obstructive sleep apnea (adult) (pediatric) (principal); G47.9 Sleep disorder, unspecified | CPT/HCPCS: G0399 ==

== ENCOUNTER 2024-01-09 15:00 | Outpatient (CLI) | payer MEDICARE, MEDICAID, SELFPAY ==
--- NOTE | 2024-01-09 15:00 | CT_ITS ---
FINAL REPORT TECHNIQUE: Thin section axial images were obtained from the lung apices to the upper abdomen by computed tomography. Reformatted images were obtained and reviewed. This study was performed with techniques to keep radiation doses al low as reasonably achievable (ALARA). Individualized dose reduction techniques using automated exposure control or adjustment of mA and/or kV according to the patient's size were employed. CLINICAL HISTORY: lung cancer screening current smoker 1 ppd x 40 years COMPARISON: LDCT 08/24/2022, CTA of the chest, 02/25/2023 FINDINGS: CHEST CT LOW DOSE 63-year-old male, current smoker, [id number] history. CTDI vol (mGy): 2.9 DLP (mGy-cm): 112.81 There is no axillary adenopathy. A few calcified precarinal lymph nodes are noted. The heart is normal in size. The ascending aorta measures 3.3 cm in diameter. There is no pericardial or pleural effusion. There is mild pulmonary scarring in the apices. Lung window images demonstrate a 2 mm noncalcified nodule in the periphery of the right lower lobe, best seen in image #55 of series 4, stable. Limited images of the upper abdomen are unremarkable. IMPRESSION: Lung-RADS category 1. Recommend 12 month follow up low dose chest CT. Reviewed, Interpreted and Dictated by Mark Robison MD Transcribed by Gwendolyn Guillen Authenticated and [facility]
== END 2024-01-09 23:59 | disposition home or self-care (01) ==
LOC: RAD 15:00
PROVIDERS: PCP Nurse Practitioner Family; Visit Provider Internal Medicine Pulmonary Disease
DX: F17.210 Nicotine dependence, cigarettes, uncomplicated (principal); J44.9 Chronic obstructive pulmonary disease, unspecified
CPT/HCPCS: 71271

== ENCOUNTER → 2024-01-27 11:02 | Outpatient (CLI) | payer MEDICARE, MEDICAID, SELFPAY | LOC: SL 11:05 | PROVIDERS: PCP Nurse Practitioner; Visit Provider Nurse Practitioner | DX: G47.33 Obstructive sleep apnea (adult) (pediatric) (principal); G47.9 Sleep disorder, unspecified; I25.10 Atherosclerotic heart disease of native coronary artery without angina pectoris; R94.31 Abnormal electrocardiogram [ECG] [EKG]; R06.09 Other forms of dyspnea; E78.5 Hyperlipidemia, unspecified; J44.9 Chronic obstructive pulmonary disease, unspecified; F17.210 Nicotine dependence, cigarettes, uncomplicated; Z79.01 Long term (current) use of anticoagulants; Z86.711 Personal history of pulmonary embolism; Z86.718 Personal history of other venous thrombosis and embolism | CPT/HCPCS: G0399 ==

== ENCOUNTER 2024-03-13 13:09 | Outpatient (POV) | payer MEDICARE, MEDICAID, SELFPAY ==
--- NOTE | 2024-03-13 13:14 | EXP.PAIN.SOA ---
[facility] Disclaimer: The information contained in this section may have been updated after the patient was seen, as this information can be updated by other users. Medical History Coronary artery disease Aortic root dilation COPD (chronic obstructive pulmonary disease) Encounter for screening for malignant neoplasm of lung in former smoker who quit in past 15 years with 30 pack year history or greater Smoking greater than 30 pack years Dyspnea on exertion Tobacco abuse counseling Tobacco abuse disorder Pulmonary emphysema Insomnia Polyarthralgia Hyperlipidemia Heartburn Dysphagia Anxiety and depression Chronic pain COPD (chronic obstructive pulmonary disease) Surgical History History of carpal tunnel release History of total hip replacement Family History Other No significant family history Social History Smoking Status: Current every day smoker tobacco type: cigarettes packs per day: 1 alcohol intake: never substance use type: former substance user current occupational status: disabled household members: family housing: house current occupational exposures/hazards: No caffeine: Yes PM Subjective & Objective Subjective Subjective:: Patient is a pleasant 63-year-old male who presents today for medication refill and 3-month follow-up. Today he rates his pain an 8 out of 10. He denies any new injuries or falls from his last visit. He states that he has not had any new heart issues and that he does have a little bit more neuropathy in his feet but otherwise nothing else is changed. Patient is currently managed with gabapentin 600 mg 3 times a day and tramadol 50 mg 3 times a day. He denies any side effects from this medication. His Cuauhtemoc has been reviewed and is appropriate. Review of Systems: General: No recent weight changes, no fever, no sleep disturbances Respiratory: No cough, no shortness of air, no recurring pulmonary infections Cardiovascular/peripheral vascular: No chest pain, no palpitations, no edema, no shortness of breath Gastrointestinal: No new onset incontinence, normal bowel movements reported Genitourinary: No new onset incontinence Musculoskeletal: Low back pain Psychiatric: [Normal mood/affect] Neurological: [Denies weakness in extremities], [denies balance issues] Pain at rest (0-10 scale): 8 Objective Objective:: Physical Exam: General: Alert and oriented x3, no acute distress, pleasant and cooperative Lungs: Respirations even and unlabored, symmetrical chest expansion Eyes: PERRL Musculoskeletal: Flexion and extension of lumbar [spine] somewhat guarded secondary to pain, [antalgic gait noted] Neurological: Speech clear, no gross sensory deficit Has patient had previous pain injection?: No Conservative treatment options previously tried: Home exercise plan Length of treatment: Longer than 12 weeks Meds Home Medications and Allergies Home Medications ?Medication ?Instructions ?Recorded ?Confirmed ?Type albuterol sulfate 90 mcg/actuation 2 inh inhalation Q6HP PRN 02/26/23 01/23/24 History aerosol inhaler shortness of breath or wheezing albuterol sulfate 90 mcg/actuation 2 inh inhalation Q6H PRN shortness 03/05/23 01/23/24 Rx aerosol inhaler of breath or wheezing 90 days #8.5 grams ergocalciferol (vitamin D2) 1,250 See Rx Instructions .Route 05/09/23 01/23/24 Rx mcg (50,000 unit) capsule .COMPLEX #14 caps rivaroxaban 20 mg tablet (Xarelto) See Rx Instructions .Route 08/05/23 01/23/24 Rx .COMPLEX #90 tabs metoprolol succinate 25 mg 25 mg PO DAILY #30 tabs 10/22/23 01/23/24 Rx tablet,extended release 24 hr (Toprol XL) glycopyrrolate 9 mcg-formoterol 2 puff inhalation BID 90 days 12/13/23 01/23/24 Rx 4.8 mcg HFA aerosol inhaler #10.7 grams (Bevespi Aerosphere) atorvastatin 10 mg tablet 10 mg PO DAILY #90 tabs 12/17/23 01/23/24 Rx amlodipine 5 mg tablet See Rx Instructions .Route 01/23/24 01/23/24 Rx .COMPLEX #90 tabs aspirin 81 mg tablet,delayed See Rx Instructions .Route 01/23/24 01/23/24 Rx release .COMPLEX #90 tabs cholecalciferol (vitamin D3) 25 See Rx Instructions .Route 02/24/24 Rx mcg (1,000 unit) tablet .COMPLEX #30 tabs famotidine 40 mg tablet See Rx Instructions .Route 02/24/24 Rx .COMPLEX #30 tabs fluticasone propionate 50 See Rx Instructions .Route 02/24/24 Rx mcg/actuation nasal .COMPLEX #16 grams spray,suspension gabapentin 600 mg tablet 600 mg PO TID #90 tabs 03/13/24 Rx tramadol 50 mg tablet 50 mg PO TID Pain #90 tabs 03/13/24 Rx New Prescriptions to Start Prescriptions: gabapentin Ramos,Halle A tramadol Ramos,Halle A Allergies Allergy/AdvReac Type Severity Reaction Status Date / Time No Known Allergies Allergy Verified 01/23/24 13:03 Assessment and Plan *Assessment and plan (1) Degenerative joint disease (DJD) of lumbar spine: Status: Chronic Category: Medical Code(s): M47.816 - Spondylosis without myelopathy or radiculopathy, lumbar region (2) Lumbar radiculopathy: Status: Chronic Category: Medical Code(s): M54.16 - Radiculopathy, lumbar region Plan We will refill the patient's tramadol and gabapentin and provide a 3-month supply of this medication. Patient return to clinic in 3 months for reevaluation of symptoms and plan of care. Risks and benefits of the medication have been explained in detail to the patient. The patient does understand the risk of dependence on the medication when given over a prolonged period. Patient has been advised of risks of oversedation with the prescribed medication. Narcan has been offered to the paitent in the event of oversedation. Patient has been advised that a family member should also be educated regarding administration of Narcan. The patient has been advised to consult with his/her primary care provider and pharmacist regarding drug-drug interaction of medications currently prescribed. Patient has been prescribed a controlled substance after being counseled on the medication, medication safety, and possible side effects. Opioid contract was reviewed and signed by the patient, and that they have agreed to all of the terms set forth by our compliance program. Patient has been instructed to contact the clinic with any concerns before the next appointment. Dr. Be has reviewed this note and agrees with this plan of care. This note was dictated using voice recognition software and make contain errors or omissions.
[2024-03-13 13:18] VITALS: BP 133/70; PULSE 93; RESP 16; O2SAT 97; BMI 18.4
== END 2024-03-13 23:59 | disposition home or self-care (01) ==
PROVIDERS: PCP Nurse Practitioner Family; Visit Provider Nurse Practitioner Family
DX: M47.26 Other spondylosis with radiculopathy, lumbar region (principal); Z96.649 Presence of unspecified artificial hip joint; F17.210 Nicotine dependence, cigarettes, uncomplicated; Z79.899 Other long term (current) drug therapy
CPT/HCPCS: 99212; G0463

== ENCOUNTER 2024-05-15 14:08 | Outpatient (CLI) | payer MEDICARE, MEDICAID, SELFPAY ==
[2024-05-15 14:31] LABS: Basophils % 0.4 % (0.1-2.0); Eosinophils # 0.1 K/mm3 (0.0-0.4); Eosinophils % 1.5 % (0.1-12.0); Hematocrit 45.6 % (42.0-52.0); Hemoglobin 15.1 g/dL (14.1-18.0); Lymphocytes # 1.7 K/mm3 (0.7-4.5); Lymphocytes % 18.4 % (10-50); Mean Corpuscular HGB Conc 33.1 g/dL (31.8-35.4); Mean Corpuscular Hemoglobin 30.3 pg (27.0-31.2); Mean Corpuscular Volume 91.4 fl (80-94); Mean Platelet Volume 9.6 fl (7.4-10.4); Monocytes # 0.9 K/mm3 (0.1-1.0); Monocytes % 9.8 % (1.7-9.3); Neutrophils # 6.3 K/mm3 (1.8-7.8); Neutrophils % 69.5 % (37.0-80.0); Platelet Count 369 K/mm3 (142-424); Red Blood Count 4.99 M/mm3 (4.60-6.20); Red Cell Distribution Width 13.2 % (11.5-17.5); White Blood Count 9.1 K/mm3 (4.8-10.8)
[2024-05-15 14:58] LABS: Alanine Aminotransferase 18 U/L (12-78); Albumin Level 3.9 g/dl (3.5-5.0); Albumin/Globulin Ratio 1.6 (1.1-1.8); Alkaline Phosphatase 87 U/L (38-126); Anion Gap 11.9 mEq/L (5-15); Aspartate Amino Transferase 27 U/L (17-59); Bilirubin,Total 0.3 mg/dl (0.2-1.3); Blood Urea Nitrogen 13 mg/dl (9-20); Calcium 9.6 mg/dl (8.4-10.2); Carbon Dioxide 27 mmol/L (22.0-30.0); Chloride 105 mmol/L (98-107); Chol/HDL Ratio 3.7 (1-3.5); Cholesterol 179 mg/dl (140-200); Estimated Glomerular Filt Rate 97 ml/min (>60); GFR (African American) 118 ML/MIN (>60); Globulin 2.5 g/dL (1.3-3.2); Glucose 125 mg/dl (74-100); HDL Cholesterol 48 mg/dl (40-60); Potassium 3.9 mmoL/L (3.5-5.1); Sodium 140 mmol/L (136-145); Total Protein,Serum 6.4 g/dl (6.3-8.2); Triglycerides 131 mg/dl (30-150); VLDL Cholesterol 26 mg/dL (0-40)
[2024-05-15 15:09] LABS: Direct LDL Cholesterol 112.75 mg/dL (100-129)
[2024-05-15 15:30] LABS: Prostate Specific Ag Screen 0.5 ng/ml (0.0-4.0); Thyroid Stimulating Hormone 2.06 uIU/mL (0.465-4.68)
== END 2024-05-15 23:59 | disposition home or self-care (01) ==
LOC: LAB 14:10
PROVIDERS: PCP Nurse Practitioner Family; Visit Provider Nurse Practitioner Family
DX: E78.5 Hyperlipidemia, unspecified (principal); Z12.5 Encounter for screening for malignant neoplasm of prostate
CPT/HCPCS: 36415; 80053; 80061; 84443; 85025; G0103

== ENCOUNTER 2024-05-19 13:21 | Outpatient (CLI) | payer MEDICARE, MEDICAID, SELFPAY ==
[2024-05-19 18:36] LABS: Hemoglobin A1C 5.5 % (4.0-6.0)
[2024-05-19 18:54] LABS: 25-OH Vitamin D, Total 86.3 ng/mL (30-100)
== END 2024-05-19 23:59 | disposition home or self-care (01) ==
LOC: LAB.DROPOF 05-20 13:21
PROVIDERS: PCP Nurse Practitioner Family; Visit Provider Nurse Practitioner Family
DX: E55.9 Vitamin D deficiency, unspecified (principal); R73.9 Hyperglycemia, unspecified
CPT/HCPCS: 82306; 83036

== ENCOUNTER 2024-06-08 16:40 | Outpatient (CLI) | payer MEDICARE, MEDICAID, SELFPAY ==
--- NOTE | 2024-06-08 16:41 | MR_ITS ---
PROCEDURE INFORMATION: Exam: MR Lumbar Spine Without Contrast Exam date and time: 06/08/2024 4:43 PM Age: 63 years old Clinical indication: Low back pain; Lower back pain with left leg/ hip pain; Additional info: Lbp TECHNIQUE: Imaging protocol: Magnetic resonance imaging of the lumbar spine without contrast. COMPARISON: MR LUMBAR SPINE WO CON 09/11/2022 2:25 PM FINDINGS: Bones/joints: The lumbar vertebral bodies are normal in height, without abnormal subluxation. There is a linear focus of hypointensity within the left L5 pars interarticularis, consistent with spondylolysis. This is stable. Spinal cord: The distal end of the conus medullaris ends at T12-L1, normal in position. Multilevel findings: Degenerative changes are noted diffusely within the lumbar spine, with disc bulge/osteophyte complexes. L1-L2: Mild disc bulging is visualized, without significant spinal canal stenosis. No significant narrowing of the right neural foramen. There is mild narrowing of the inferior aspect of the left neural foramen. L2-L3: A broad-based disc bulge is visualized, without significant spinal canal stenosis. There is narrowing of both lateral recesses. Mild bilateral neural foraminal narrowing is visualized. L3-L4: Mild bilateral facet arthropathy with hypertrophy of the ligamentum flavum. Minimal disc bulging is visualized, without significant spinal canal stenosis. There is mild bilateral neural foraminal narrowing. L4-L5: Bilateral facet arthropathy. A small broad-based disc bulge is visualized, without significant spinal canal stenosis. Mild bilateral neural foraminal narrowing is identified. L5-S1: A decrease in disc height is visualized. Mild T2/STIR hyperintense disc edema is identified at L5-S1. There is heterogeneous signal intensity of the bone marrow adjacent to the endplates on T1, with marrow edema on STIR. This disc edema is new, with a progression of marrow edema compared to the previous MRI. Minimal prevertebral edema is identified at L5-S1 and the upper sacral spine. These findings are likely contributed by degenerative changes. Discitis/osteomyelitis is within the differential in the appropriate clinical setting, although considered less likely due to preservation of endplate definition on both sides of the disc. At L5-S1, a broad-based disc bulge causes effacement of the anterior epidural fat and flattening of the ventral thecal sac, without significant spinal canal stenosis. Moderate right and [id number] left neural foraminal narrowing visualized. There is resolution of the free fragment of disc dorsal to the L5 vertebral body compared to the previous exam. Soft tissues: See above. IMPRESSION: 1. New mild disc edema is identified at L5-S1, with progressive marrow edema adjacent to the endplates. Minimal prevertebral edema is identified at L5-S1 and the upper sacral spine. These findings are likely contributed by degenerative changes. Discitis/osteomyelitis is within the differential in the appropriate clinical setting, although considered less likely. Clinical correlation is recommended. 2. Degenerative changes are noted diffusely within the lumbar spine, as described above. 3. At L5-S1, there is resolution of the free fragment of disc dorsal to the L5 vertebral body compared to the previous exam. 4. Neural foraminal narrowing at all lumbar levels. 5. Left L5 spondylolysis.
== END 2024-06-08 23:59 | disposition home or self-care (01) ==
LOC: RAD 16:41
PROVIDERS: PCP Nurse Practitioner Family; Visit Provider Nurse Practitioner Family
DX: M47.26 Other spondylosis with radiculopathy, lumbar region (principal); M51.26 Other intervertebral disc displacement, lumbar region
CPT/HCPCS: 72148

== ENCOUNTER 2024-06-11 13:34 | Outpatient (POV) | payer MEDICARE, MEDICAID, SELFPAY ==
--- NOTE | 2024-06-11 13:54 | EXP.PAIN.SOA ---
[facility] Disclaimer: The information contained in this section may have been updated after the patient was seen, as this information can be updated by other users. Medical History Coronary artery disease Aortic root dilation COPD (chronic obstructive pulmonary disease) Encounter for screening for malignant neoplasm of lung in former smoker who quit in past 15 years with 30 pack year history or greater Smoking greater than 30 pack years Dyspnea on exertion Tobacco abuse counseling Tobacco abuse disorder Pulmonary emphysema Insomnia Polyarthralgia Hyperlipidemia Heartburn Dysphagia Anxiety and depression Chronic pain COPD (chronic obstructive pulmonary disease) Surgical History History of carpal tunnel release History of total hip replacement Family History Other No significant family history Social History Smoking Status: Current every day smoker tobacco type: cigarettes packs per day: 1 alcohol intake: never substance use type: former substance user current occupational status: other Travel in the last 8 weeks: None household members: family housing: house current occupational exposures/hazards: No caffeine: Yes PM Subjective & Objective Subjective Subjective:: Patient is a pleasant 63-year-old male who presents today for 3-month follow-up and medication refill. Today he does rate his pain a 6 out of 10. He states from our last appointment he continues to have worsening pain that goes from his low back and radiates primarily into the left leg with numbness and tingling. He does state that he has even had falls due to that left leg giving out on him. He states any type of increased activity seems to aggravate and it is interfering with his ability to perform activities of daily living such as cooking and cleaning. Patient does state that he is primary care did order updated imaging and that he is having to go back and do additional imaging coming up. Patient has continued at home exercising and stretching for longer than 12 weeks with no additional improvement. Patient is currently managed with gabapentin 600 mg 3 times a day and tramadol 50 mg 3 times a day. He denies any side effects. His Cuauhtemoc has been reviewed and is appropriate. Review of Systems: General: No recent weight changes, no fever, no sleep disturbances Respiratory: No cough, no shortness of air, no recurring pulmonary infections Cardiovascular/peripheral vascular: No chest pain, no palpitations, no edema, no shortness of breath Gastrointestinal: No new onset incontinence, normal bowel movements reported Genitourinary: No new onset incontinence Musculoskeletal: Low back pain, left leg numbness tingling Psychiatric: [Normal mood/affect] Neurological: [Denies weakness in extremities], [denies balance issues] Pain at rest (0-10 scale): 6 Objective Objective:: Physical Exam: General: Alert and oriented x3, no acute distress, pleasant and cooperative Lungs: Respirations even and unlabored, symmetrical chest expansion Eyes: PERRL Musculoskeletal: Flexion and extension of lumbar [spine] somewhat guarded secondary to pain, [antalgic gait noted] positive left leg raise Neurological: Speech clear, no gross sensory deficit FINDINGS: Bones/joints: The lumbar vertebral bodies are normal in height, without abnormal subluxation. There is a linear focus of hypointensity within the left L5 pars interarticularis, consistent with spondylolysis. This is stable. Spinal cord: The distal end of the conus medullaris ends at T12-L1, normal in position. Multilevel findings: Degenerative changes are noted diffusely within the lumbar spine, with disc bulge/osteophyte complexes. L1-L2: Mild disc bulging is visualized, without significant spinal canal stenosis. No significant narrowing of the right neural foramen. There is mild narrowing of the inferior aspect of the left neural foramen. L2-L3: A broad-based disc bulge is visualized, without significant spinal canal stenosis. There is narrowing of both lateral recesses. Mild bilateral neural foraminal narrowing is visualized. L3-L4: Mild bilateral facet arthropathy with hypertrophy of the ligamentum flavum. Minimal disc bulging is visualized, without significant spinal canal stenosis. There is mild bilateral neural foraminal narrowing. L4-L5: Bilateral facet arthropathy. A small broad-based disc bulge is visualized, without significant spinal canal stenosis. Mild bilateral neural foraminal narrowing is identified. L5-S1: A decrease in disc height is visualized. Mild T2/STIR hyperintense disc edema is identified at L5-S1. There is heterogeneous signal intensity of the bone marrow adjacent to the endplates on T1, with marrow edema on STIR. This disc edema is new, with a progression of marrow edema compared to the previous MRI. Minimal prevertebral edema is identified at L5-S1 and the upper sacral spine. These findings are likely contributed by degenerative changes. Discitis/osteomyelitis is within the differential in the appropriate clinical setting, although considered less likely due to preservation of endplate definition on both sides of the disc. At L5-S1, a broad-based disc bulge causes effacement of the anterior epidural fat and flattening of the ventral thecal sac, without significant spinal canal stenosis. Moderate right and [id number] left neural foraminal narrowing visualized. There is resolution of the free fragment of disc dorsal to the L5 vertebral body compared to the previous exam. Soft tissues: See above. Has patient had previous pain injection?: No Conservative treatment options previously tried: Home exercise plan Length of treatment: Longer than 12 weeks and Prescription medications Length of treatment: Longer than 12 weeks Meds Home Medications and Allergies Home Medications ?Medication ?Instructions ?Recorded ?Confirmed ?Type albuterol sulfate 90 mcg/actuation 2 inh inhalation Q6HP PRN 02/26/23 06/02/24 History aerosol inhaler shortness of breath or wheezing rivaroxaban 20 mg tablet (Xarelto) See Rx Instructions .Route 08/05/23 06/02/24 Rx .COMPLEX #90 tabs glycopyrrolate 9 mcg-formoterol 2 puff inhalation BID 90 days 12/13/23 06/02/24 Rx 4.8 mcg HFA aerosol inhaler #10.7 grams (Bevespi Aerosphere) atorvastatin 10 mg tablet 10 mg PO DAILY #90 tabs 12/17/23 06/02/24 Rx amlodipine 5 mg tablet See Rx Instructions .Route 01/23/24 06/02/24 Rx .COMPLEX #90 tabs aspirin 81 mg tablet,delayed See Rx Instructions .Route 01/23/24 06/02/24 Rx release .COMPLEX #90 tabs gabapentin 600 mg tablet 600 mg PO TID #90 tabs 03/13/24 06/02/24 Rx tramadol 50 mg tablet 50 mg PO TID Pain #90 tabs 03/13/24 06/02/24 Rx fluticasone propionate 50 See Rx Instructions .Route 03/25/24 06/02/24 Rx mcg/actuation nasal .COMPLEX #16 grams spray,suspension albuterol sulfate 90 mcg/actuation See Rx Instructions .Route 01/03/25 02/11/25 Rx aerosol inhaler .COMPLEX #18 grams metoprolol succinate 25 mg 25 mg PO DAILY #30 tabs 04/24/24 06/02/24 Rx tablet,extended release 24 hr (Toprol XL) cholecalciferol (vitamin D3) 25 See Rx Instructions .Route 05/25/24 06/02/24 Rx mcg (1,000 unit) tablet .COMPLEX #30 tabs ergocalciferol (vitamin D2) 1,250 See Rx Instructions .Route 05/25/24 06/02/24 Rx mcg (50,000 unit) capsule .COMPLEX #4 caps famotidine 40 mg tablet See Rx Instructions .Route 05/25/24 06/02/24 Rx .COMPLEX #30 tabs New Prescriptions to Start Prescriptions: Allergies Allergy/AdvReac Type Severity Reaction Status Date / Time No Known Allergies Allergy Verified 06/02/24 14:41 Assessment and Plan *Assessment and plan (1) Lumbar radiculopathy: Status: Chronic Category: Medical Code(s): M54.16 - Radiculopathy, lumbar region (2) Degenerative joint disease (DJD) of lumbar spine: Status: Chronic Category: Medical Code(s): M47.816 - Spondylosis without myelopathy or radiculopathy, lumbar region (3) Lumbar spinal stenosis: Status: Acute Category: Medical Code(s): M48.061 - Spinal stenosis, lumbar region without neurogenic claudication Plan Patient is experiencing worsening pain in his low back with numbness and tingling into his left leg. Patient did have limited range of motion of his lumbar spine with a positive leg raise. I did discuss with patient that I do believe they would benefit from a lumbar epidural steroid injection. Risk and benefits were discussed with patient and the patient would like to proceed forward with this plan of care. Patient is on Xarelto due to a history of previous blood clots in his lungs. We will reach out to his provider and confirm he can stop this medication prior to this injection. Patient has tried and failed conservative therapy including continued at home stretching exercise for longer than 12 weeks that was physician guided. Patient has had longstanding chronic back issues for years that has progressively worsened. Patient has not had any recent injections with our office and even in previous years this was more related to knee injections. We will schedule the patient for an LESI L5-S1 under fluoroscopy. I will also send in a 3-month supply of his gabapentin and tramadol. Patient has been instructed to contact the clinic with any concerns before the next appointment. Dr. Be has reviewed this note and agrees with this plan of care. This note was dictated using voice recognition software and make contain errors or omissions. All injections are used with Lidocaine, Bupivacaine and Depo Medrol. Occasionally urine drug screen is needed to verify patient's compliance with our office pain contract. This is ordered based off specific treatments related to chronic pain with the potential to abuse certain medications.
[2024-06-11 13:57] VITALS: BP 124/69; PULSE 79; RESP 18; O2SAT 97; BMI 19.2
== END 2024-06-11 23:59 | disposition home or self-care (01) ==
PROVIDERS: PCP Nurse Practitioner Family; Visit Provider Nurse Practitioner Family
DX: M47.26 Other spondylosis with radiculopathy, lumbar region (principal); M48.061 Spinal stenosis, lumbar region without neurogenic claudication; F17.210 Nicotine dependence, cigarettes, uncomplicated; Z73.89 Other problems related to life management difficulty; Z79.01 Long term (current) use of anticoagulants
CPT/HCPCS: 99212; G0463

== ENCOUNTER 2024-06-12 10:19 | Outpatient (CLI) | payer MEDICARE, MEDICAID, SELFPAY ==
--- NOTE | 2024-06-12 10:21 | NM_ITS ---
FINAL REPORT CLINICAL HISTORY: eval FUNMI FINDINGS: EXISTING RELEVANT IMAGING STUDIES: MRI lumbar spine 06/08/2024 TECHNIQUE: The patient was injected with 25.8 mCi of technetium 99-MDP. 3 hour delayed images were obtained. Renal uptake is normal. There are no areas of abnormal radiotracer uptake to suggest fracture or metastatic disease. There is radiotracer uptake in the lateral aspect of the mid right thigh of uncertain etiology. Recommend correlation with plain radiographs or obtain MRI if indicated. IMPRESSION: No evidence of osseous metastatic disease or fracture. Radiotracer uptake in the lateral mid right thigh of uncertain etiology. Recommend correlation with plain films or obtain MRI if indicated. Reviewed, Interpreted and Dictated by Verenice Hutton MD Transcribed by Daxa Tian Authenticated and . [facility]
[2024-06-12] MEDS: SODIUM CHLORIDE 0.9% 10ML SYR (RAD ONLY) 10 ML IV (13:25)
[2024-06-12] MEDS: ISOTOPE MDP (BONE);1 DOSE VIAL IV (13:25)
== END 2024-06-12 23:59 | disposition home or self-care (01) ==
LOC: RAD 10:21
PROVIDERS: PCP Nurse Practitioner Family; Visit Provider Internal Medicine
DX: M86.9 Osteomyelitis, unspecified (principal)
CPT/HCPCS: 78306; A9503

== ENCOUNTER 2024-07-07 08:54 | Day surgery (SDC) | payer MEDICARE, MEDICAID, SELFPAY ==
[2024-07-07 09:12] VITALS: BP 106/54; PULSE 73; RESP 16; TEMP 36.6; O2SAT 96; BMI 19.2
[2024-07-07 09:27] VITALS: BP 100/62; PULSE 58; RESP 18; O2SAT 98
[2024-07-07] MEDS: methylPREDNISolone ACETATE 80MG/ML VIAL 80 MG (09:27)
[2024-07-07 09:29] VITALS: BP 100/62; PULSE 58; RESP 18; O2SAT 98
[2024-07-07 09:40] VITALS: BP 101/72; PULSE 67; RESP 16; O2SAT 98
--- NOTE | 2024-07-07 10:10 | EXP.PAIN.PRO ---
Procedure Date: 07/07/24 Time: 09:10 Anesthesiologist:: Pa Bain CRNA Complications:: None Pre-procedure Diagnosis:: Degenerative disc lumbar spine multilevels. Lumbar radiculopathy. Disc bulge L4-5, L5-S1. Lumbar spondylosis. Post-procedure Diagnosis:: Same Indications for Procedure:: Patient is a very pleasant 63-year-old male who comes our clinic today for lumbar epidural steroid injection at the L5-S1 level. Patient describes low lumbar back pain and bilateral leg radiculopathy. He rates his pain 7/10. Procedure Details:: Procedure: Lumbar epidural steroid injection under fluoroscopy Informed consent was obtained and the risks and benefits of the procedure were explained to the patient. The patient was taken to the procedure room and noninvasive monitors placed, including noninvasive blood pressure cuff and pulse oximeter. The back was viewed using C-arm Fluoroscopy and prepped using Chloraprep as a cleansing solution and the L5-S1 interspace was palpated. Skin and subcutaneous tissues were anesthetized using lidocaine 1.5% and a 25-gauge needle. After this, an 18-gauge Touhy epidural needle was placed into the L5-S1 interspace and advanced using fluoroscopic guidance and loss of resistance to air until the epidural space was encountered. After confirmation of needle placement in the epidural space, with dye, a solution containing normal saline, 3 mL and Depo-Medrol 80 mg were incrementally injected into the lumbar epidural space. The patient tolerated the procedure well with no complications. The patient was observed in the Pain Clinic and then discharged home neurologically intact. Plan and Disposition:: Patient was discharged without incident.
== END 2024-07-07 09:40 | disposition home or self-care (01) ==
LOC: SC.PAINP 08:55
PROVIDERS: PCP Nurse Practitioner Family; Visit Provider Nurse Anesthetist, Certified Registered
DX: M51.16 Intervertebral disc disorders with radiculopathy, lumbar region (principal); M47.26 Other spondylosis with radiculopathy, lumbar region
CPT/HCPCS: 62323; J1010

== ENCOUNTER 2024-07-20 11:32 | Outpatient (POV) | payer MEDICARE, MEDICAID, SELFPAY ==
[2024-07-20 11:44] VITALS: BP 116/68; PULSE 84; RESP 14; O2SAT 98; BMI 19.2
--- NOTE | 2024-07-20 12:10 | EXP.PAIN.SOA ---
[facility] Disclaimer: The information contained in this section may have been updated after the patient was seen, as this information can be updated by other users. Medical History GERD (gastroesophageal reflux disease) Coronary artery disease Aortic root dilation COPD (chronic obstructive pulmonary disease) Encounter for screening for malignant neoplasm of lung in former smoker who quit in past 15 years with 30 pack year history or greater Smoking greater than 30 pack years Dyspnea on exertion Tobacco abuse counseling Tobacco abuse disorder Pulmonary emphysema Insomnia Polyarthralgia Hyperlipidemia Heartburn Dysphagia Anxiety and depression Chronic pain COPD (chronic obstructive pulmonary disease) Surgical History History of colonoscopy History of carpal tunnel release History of total hip replacement Family History Other Cancer CM (obstructive sleep apnea) Social History Smoking Status: Current every day smoker tobacco type: cigarettes packs per day: 1 alcohol intake: never substance use type: former substance user current occupational status: other Travel in the last 8 weeks: None household members: family housing: house current occupational exposures/hazards: No caffeine: Yes Have you lived/traveled outside [place] in past 30 days?: No Contact w/someone who lives/traveled outside [place] past 30 days?: No Exposure to someone with infectious disease in past 14 days?: No Do you have a fever (greater than 100.4 F or 38 C)?: No Have you tested positive for COVID-19: No Exposed to someone with COVID-19 in past 14 days?: No Do you have a sore throat?: No Do you have a cough?: No Do you have any weakness?: No Do you have any diarrhea?: No Are you experiencing any unusual bleeding?: No Do you have any muscle aches/pain?: No Do you have any abdominal pain?: No Are you experiencing loss of taste or smell?: No PM Subjective & Objective Subjective Subjective:: Patient is a pleasant 63-year-old male who presents today for follow-up lumbar epidural steroid injection L5-S1 on 07/07/2024. Patient does state that he did get 60% improvement following this injection however felt like it only lasted a good week. Patient denies any new falls or injuries. Patient does state that he continues to feel like that left leg goes numb and is going to give out. Patient is currently managed with gabapentin 600 mg 3 times a day and tramadol 50 mg 3 times a day from our office. He denies any side effects from this medication. Patient was just given a 3-month supply of this medication in May and does not need refills until August. His Cuauhtemoc has been reviewed and is appropriate. Review of Systems: General: No recent weight changes, no fever, no sleep disturbances Respiratory: No cough, no shortness of air, no recurring pulmonary infections Cardiovascular/peripheral vascular: No chest pain, no palpitations, no edema, no shortness of breath Gastrointestinal: No new onset incontinence, normal bowel movements reported Genitourinary: No new onset incontinence Musculoskeletal: Low back pain, left leg pain Psychiatric: [Normal mood/affect] Neurological: [Denies weakness in extremities], [denies balance issues] Pain at rest (0-10 scale): 6 Objective Objective:: Physical Exam: General: Alert and oriented x3, no acute distress, pleasant and cooperative Lungs: Respirations even and unlabored, symmetrical chest expansion Eyes: PERRL Musculoskeletal: Flexion and extension of lumbar [spine] somewhat guarded secondary to pain, [antalgic gait noted] Neurological: Speech clear, no gross sensory deficit Has patient had previous pain injection?: Yes Percent improvement in pain since last injection: 60% Conservative treatment options previously tried: Home exercise plan Length of treatment: Longer than 12 weeks Meds Home Medications and Allergies Home Medications ?Medication ?Instructions ?Recorded ?Confirmed ?Type rivaroxaban 20 mg tablet (Xarelto) See Rx Instructions .Route 08/05/23 07/20/24 Rx .COMPLEX #90 tabs glycopyrrolate 9 mcg-formoterol 2 puff inhalation BID 90 days 12/13/23 07/20/24 Rx 4.8 mcg HFA aerosol inhaler #10.7 grams (Bevespi Aerosphere) amlodipine 5 mg tablet See Rx Instructions .Route 01/23/24 07/20/24 Rx .COMPLEX #90 tabs aspirin 81 mg tablet,delayed See Rx Instructions .Route 01/23/24 07/20/24 Rx release .COMPLEX #90 tabs fluticasone propionate 50 See Rx Instructions .Route 03/25/24 07/20/24 Rx mcg/actuation nasal .COMPLEX #16 grams spray,suspension albuterol sulfate 90 mcg/actuation See Rx Instructions .Route 04/24/24 07/20/24 Rx aerosol inhaler .COMPLEX #18 grams metoprolol succinate 25 mg 25 mg PO DAILY #30 tabs 04/24/24 07/20/24 Rx tablet,extended release 24 hr (Toprol XL) cholecalciferol (vitamin D3) 25 See Rx Instructions .Route 05/25/24 07/20/24 Rx mcg (1,000 unit) tablet .COMPLEX #30 tabs ergocalciferol (vitamin D2) 1,250 See Rx Instructions .Route 05/25/24 07/20/24 Rx mcg (50,000 unit) capsule .COMPLEX #4 caps gabapentin 600 mg tablet 600 mg PO TID #90 tabs 06/11/24 07/20/24 Rx tramadol 50 mg tablet 50 mg PO TID Pain #90 tabs 06/11/24 07/20/24 Rx atorvastatin 10 mg tablet See Rx Instructions .Route 06/16/24 07/20/24 Rx .COMPLEX #90 tabs famotidine 40 mg tablet See Rx Instructions .Route 06/17/24 07/20/24 Rx .COMPLEX #30 tabs New Prescriptions to Start Prescriptions: Allergies Allergy/AdvReac Type Severity Reaction Status Date / Time No Known Allergies Allergy Verified 07/10/24 10:47 Assessment and Plan *Assessment and plan (1) Lumbar radiculopathy: Status: Chronic Category: Medical Code(s): M54.16 - Radiculopathy, lumbar region (2) Degenerative joint disease (DJD) of lumbar spine: Status: Chronic Category: Medical Code(s): M47.816 - Spondylosis without myelopathy or radiculopathy, lumbar region Plan I did discuss with the patient in future he may benefit from a left transforaminal epidural. Patient does only have left leg symptoms and he did get relief with the lumbar epidural however it was short-lived. We will follow-up with this in future. We did also discuss about additional imaging. Patient was thinking it had been a while however he did just have his lumbar MRI updated earlier this year by Dr. Somers. We will follow-up with him at his medication refill appointment on September 07. Patient agrees with this plan of care. Patient has been instructed to contact the clinic with any concerns before the next appointment. Dr. Be has reviewed this note and agrees with this plan of care. This note was dictated using voice recognition software and make contain errors or omissions. All injections are used with Lidocaine, Bupivacaine and Depo Medrol. Occasionally urine drug screen is needed to verify patient's compliance with our office pain contract. This is ordered based off specific treatments related to chronic pain with the potential to abuse certain medications.
== END 2024-07-20 23:59 | disposition home or self-care (01) ==
LOC: SC.PAIN 11:33
PROVIDERS: PCP Nurse Practitioner Family; Visit Provider Nurse Practitioner Family
DX: M47.26 Other spondylosis with radiculopathy, lumbar region (principal); F17.210 Nicotine dependence, cigarettes, uncomplicated; Z79.01 Long term (current) use of anticoagulants
CPT/HCPCS: 99212; G0463

== ENCOUNTER 2024-09-07 14:22 | Outpatient (POV) | payer MEDICARE, MEDICAID, SELFPAY ==
--- NOTE | 2024-09-07 14:46 | EXP.PAIN.SOA ---
[facility] Disclaimer: The information contained in this section may have been updated after the patient was seen, as this information can be updated by other users. Medical History (Updated 07/23/24 @ 12:07 by Christian Johnson MD) Allergic rhinitis GERD (gastroesophageal reflux disease) Coronary artery disease Aortic root dilation COPD (chronic obstructive pulmonary disease) Encounter for screening for malignant neoplasm of lung in former smoker who quit in past 15 years with 30 pack year history or greater Smoking greater than 30 pack years Dyspnea on exertion Tobacco abuse counseling Tobacco abuse disorder Pulmonary emphysema Insomnia Polyarthralgia Hyperlipidemia Heartburn Dysphagia Anxiety and depression Chronic pain COPD (chronic obstructive pulmonary disease) Surgical History History of colonoscopy History of carpal tunnel release History of total hip replacement Family History Other Cancer CM (obstructive sleep apnea) Social History Smoking Status: Current every day smoker tobacco type: cigarettes packs per day: 1 alcohol intake: never substance use type: former substance user current occupational status: other Travel in the last 8 weeks?: None household members: family housing: house current occupational exposures/hazards: No caffeine: Yes PM Subjective & Objective Subjective Subjective:: Patient is a pleasant 63-year-old male who presents today for medication refill and follow-up. Today he does rate his pain a 6 out of 10. He denies any new trauma or injury. He does state overall he has been doing more activity with the weather and feels like this has increased his pain. Patient did previously have a lumbar epidural steroid injection L5-S1 on July 07 and did get 60% relief. Patient states as right now he still feels like his pain is manageable. Patient is prescribed gabapentin 600 mg 3 times a day and tramadol 50 mg 3 times a day. He denies any side effects or changes to his pharmacy. Patient does state that he does typically have to eat before taking his meds otherwise it will cause upset stomach. His Cuauhtemoc has been reviewed and is appropriate. Review of Systems: General: No recent weight changes, no fever, no sleep disturbances Respiratory: No cough, no shortness of air, no recurring pulmonary infections Cardiovascular/peripheral vascular: No chest pain, no palpitations, no edema, no shortness of breath Gastrointestinal: No new onset incontinence, normal bowel movements reported Genitourinary: No new onset incontinence Musculoskeletal: Low back pain Psychiatric: [Normal mood/affect] Neurological: [Denies weakness in extremities], [denies balance issues] Pain at rest (0-10 scale): 6 Objective Objective:: Physical Exam: General: Alert and oriented x3, no acute distress, pleasant and cooperative Lungs: Respirations even and unlabored, symmetrical chest expansion Eyes: PERRL Musculoskeletal: Flexion and extension of lumbar [spine] somewhat guarded secondary to pain, [antalgic gait noted] Neurological: Speech clear, no gross sensory deficit Has patient had previous pain injection?: No Conservative treatment options previously tried: Prescription medications Length of treatment: Longer than 12 weeks Meds Home Medications and Allergies Home Medications ?Medication ?Instructions ?Recorded ?Confirmed ?Type glycopyrrolate 9 mcg-formoterol 2 puff inhalation BID 90 days 12/13/23 07/23/24 Rx 4.8 mcg HFA aerosol inhaler #10.7 grams (Bevespi Aerosphere) amlodipine 5 mg tablet See Rx Instructions .Route 01/23/24 07/23/24 Rx .COMPLEX #90 tabs aspirin 81 mg tablet,delayed See Rx Instructions .Route 01/23/24 07/23/24 Rx release .COMPLEX #90 tabs albuterol sulfate 90 mcg/actuation See Rx Instructions .Route 04/24/24 07/23/24 Rx aerosol inhaler .COMPLEX #18 grams metoprolol succinate 25 mg 25 mg PO DAILY #30 tabs 04/24/24 07/23/24 Rx tablet,extended release 24 hr (Toprol XL) gabapentin 600 mg tablet 600 mg PO TID #90 tabs 06/11/24 07/23/24 Rx tramadol 50 mg tablet 50 mg PO TID Pain #90 tabs 06/11/24 07/23/24 Rx atorvastatin 10 mg tablet See Rx Instructions .Route 06/16/24 07/23/24 Rx .COMPLEX #90 tabs fluticasone propionate 50 1 spray intranasal BID 90 days #16 07/23/24 07/23/24 Rx mcg/actuation nasal grams spray,suspension cholecalciferol (vitamin D3) 25 See Rx Instructions .Route 07/24/24 Rx mcg (1,000 unit) tablet .COMPLEX #30 ea famotidine 40 mg tablet See Rx Instructions .Route 07/24/24 Rx .COMPLEX #90 tabs ergocalciferol (vitamin D2) 1,250 See Rx Instructions .Route 08/11/24 Rx mcg (50,000 unit) capsule .COMPLEX #4 caps rivaroxaban 20 mg tablet (Xarelto) See Rx Instructions .Route 08/28/24 Rx .COMPLEX #30 tabs New Prescriptions to Start Prescriptions: Allergies Allergy/AdvReac Type Severity Reaction Status Date / Time No Known Allergies Allergy Verified 07/23/24 11:54 Assessment and Plan *Assessment and plan (1) Lumbar spinal stenosis: Status: Chronic Qualifiers: Neurogenic claudication status: unspecified Qualified Code(s): M48.061 - Spinal stenosis, lumbar region without neurogenic claudication Category: Medical Code(s): M48.061 - Spinal stenosis, lumbar region without neurogenic claudication (2) Lumbar radiculopathy: Status: Chronic Category: Medical Code(s): M54.16 - Radiculopathy, lumbar region (3) Degenerative joint disease (DJD) of lumbar spine: Status: Chronic Category: Medical Code(s): M47.816 - Spondylosis without myelopathy or radiculopathy, lumbar region Plan I will refill the patient's gabapentin tramadol and provide a 3-month supply of this medication. Patient will return to clinic in 3 months. Risks and benefits of the medication have been explained in detail to the patient. The patient does understand the risk of dependence on the medication when given over a prolonged period. Patient has been advised of risks of oversedation with the prescribed medication. Narcan has been offered to the paitent in the event of oversedation. Patient has been advised that a family member should also be educated regarding administration of Narcan. The patient has been advised to consult with his/her primary care provider and pharmacist regarding drug-drug interaction of medications currently prescribed. Patient has been prescribed a controlled substance after being counseled on the medication, medication safety, and possible side effects. Opioid contract was reviewed and signed by the patient, and that they have agreed to all of the terms set forth by our compliance program. A UDS is needed to verify patient's compliance with our office pain contract. This is ordered based off specific treatments related to chronic pain with the potential to abuse certain medications. Patient has been instructed to contact the clinic with any concerns before the next appointment. Dr. Be has reviewed this note and agrees with this plan of care. This note was dictated using voice recognition software and make contain errors or omissions.
[2024-09-07 15:22] VITALS: BP 115/69; PULSE 83; RESP 18; O2SAT 97; BMI 19.2
== END 2024-09-07 23:59 | disposition home or self-care (01) ==
PROVIDERS: PCP Nurse Practitioner Family; Visit Provider Nurse Practitioner Family
DX: M48.061 Spinal stenosis, lumbar region without neurogenic claudication (principal); M47.26 Other spondylosis with radiculopathy, lumbar region; Z96.649 Presence of unspecified artificial hip joint; F17.210 Nicotine dependence, cigarettes, uncomplicated; Z79.01 Long term (current) use of anticoagulants
CPT/HCPCS: 99212; G0463